=== PATIENT | female | born 1965 | race Caucasian/White ===

== ENCOUNTER 2023-09-17 08:53 | Inpatient (IN) | payer OTHER, SELFPAY ==
[2023-09-16 17:14] VITALS: BP 125/86
[2023-09-16 17:29] VITALS: BP 122/77; BMI 31.7
[2023-09-16 17:49] LABS: % Basophils 0.3 % (0-2); % Eosinophils 0.1 % (0-6); % Immature Granulocytes 0.2 % (0-0.5); % Lymphocytes 12.9 % (20.5-51.1); % Monocytes 6.1 % (1.7-9.3); % Neutrophils 80.4 % (42.2-75.2); Absolute Lymphocytes 1.5 10^3/uL (1.2-3.4); Absolute Monocytes 0.7 10^3/uL (0.1-0.6); Absolute Neutrophils 9.3 10^3/uL (1.4-6.5); Hematocrit 46.9 % (37.0-47.0); Hemoglobin 15.7 g/dL (12.0-16.0); Mean Corp Hgb Conc. 33.5 g/dL (33.0-37.0); Mean Corpuscular Hgb 29.3 pg (27.0-31.0); Mean Corpuscular Volume 87.5 fL (81.0-99.0); Mean Platelet Volume 9.9 fL (7.4-10.4); Nucleated Red Blood Cells % 0 %; Platelet Count 207 10^3/uL (130-400); Red Blood Cell Count 5.36 10^6/uL (4.20-5.40); Red Cell Dist. Width 13.1 % (11.5-14.5); White Blood Cell Count 11.6 10^3/uL (4.8-10.8)
[2023-09-16 17:54] LABS: APTT 31.3 Sec (23.4-35.0); INR 0.98; PT 12.8 Sec (11.4-14.6)
[2023-09-16 17:59] LABS: ALT (SGPT) 25 U/L (0-35); AST (SGOT) 42 U/L (14-36); Albumin 4.1 g/dl (3.5-5.0); Alkaline Phosphatase 87 U/L (38-126); Blood Urea Nitrogen 10 mg/dl (7-17); Carbon Dioxide 34 mmol/L (22-30); Chloride 97 mmol/L (98-107); Estimated Creatinine Clearance 108 ml/min; Glucose 130 mg/dl (70-99); Potassium 4.5 mmol/L (3.5-5.1); Sodium 136 mmol/L (135-145); Total Bilirubin 0.7 mg/dl (0.2-1.3); Total Protein 6.9 g/dl (6.3-8.2); eGFR > 60.00
[2023-09-16] MEDS: DECADRON 10 MG IV (18:03)
[2023-09-16] MEDS: ATROVENT NEBULES 0.5 MG INH ×2 (18:04→18:05)
[2023-09-16] MEDS: ROCEPHIN 1000 MG IV (18:04)
[2023-09-16] MEDS: ZOFRAN 4 MG IV (18:04)
[2023-09-16] MEDS: VIBRAMYCIN 100 MG PO (18:05)
[2023-09-16] MEDS: VENTOLIN NEBULES 7.5 MG INH (18:05)
[2023-09-16 18:08] LABS: NT-proBNP 1260 pg/ml
--- NOTE | 2023-09-16 18:12 | ED.GENMED ---
History of Present Illness
General
Chief Complaint: Breathing Problem
Source: patient and family
Time Seen by Provider: 09/16/23 17:40
History of Present Illness
History of Present Illness:
57-year-old female longtime smoker with history of COPD presents short of breath over the last close to a week. Patient states that today she just was so short of breath and could not get her pulse ox in the 80s. Patient states her was
sick with a cold last week. She then developed a fever but that broke after she took Zithromax that she had at home. Patient states however her breathing difficulty has persisted. She states her cough is mostly dry. She has had no longer
any fevers. Denies chest pain. No vomiting. The patient states that she has been trying albuterol at home without relief.
Past History
Past History
ED Past Medical History: Cancer (Breast), COPD and Other (Polycystic ovary disease)
ED Past Surgical History: Other
Social History
Tobacco: Smoker
Living: with family
Employment: Employed
Phy Exam
Physical Exam
Physical Exam:
CONSTITUTIONAL Patient alert and oriented to person, place and time. Well-appearing. Vital signs reviewed.
HEAD atraumatic, normocephalic.
EYES eyelids normal to inspection, Extraocular muscles intact, Conjunctiva normal, Sclera normal.
NECK normal range of motion, Trachea midline, no jugular venous distention.
RESPIRATORY CHEST mild respiratory distress noted, Chest expansion equal, occasional scattered rhonchi but grossly poor air movement bilaterally.
CARDIOVASCULAR regular rate and rhythm, Heart sounds normal.
ABDOMEN abdomen nontender, Bowel sounds normal. No distention.
BACK normal inspection, no obvious deformities
UPPER EXTREMITY range of motion normal, Motor strength normal, no cyanosis, no edema.
LOWER EXTREMITY range of motion normal, Motor strength normal, no cyanosis, no edema.
NEURO Speech normal, No focal motor deficits, Sangeeta coma scale 15, Memory normal, Cranial Nerves intact to screening exam.
SKIN skin warm, dry, and normal in color.
PSYCHIATRIC patient oriented to person place and time, Normal affect.
Scores
Heart Failure Risk
Heart Failure Risk Score: Not Applicable
Course
Orders/Labs/Results
Orders:
Orders
09/16/23 17:25
Portable Chest Xray [CR Chest Portable - 1 View] Urgent
Comment:
Reason For Exam: sob
Reason Study Needs to be Portable: Patient Unstable
09/16/23 17:35
BNP [NT-proBNP] Urgent
Complete Blood Count/With Diff Urgent
Comprehensive Metabolic Panel Urgent
Protime/PTT Urgent
09/16/23 17:50
Albuterol Sulfate [Ventolin Nebules] 7.5 mg INH R NOW STA
Dexamethasone Sod Phosphate [Decadron] 10 mg IV NOW STA
Ipratropium Nebs [Atrovent Nebules] 0.5 mg INH R NOW STA
09/16/23 17:51
Ipratropium Nebs [Atrovent Nebules] 0.5 mg INH R NOW STA
09/16/23 17:52
CefTRIAXone [Rocephin] 1,000 mg IV NOW STA
Doxycycline [Vibramycin] 100 mg PO NOW STA
09/16/23 17:55
Ondansetron Injectable [Zofran] 4 mg IV NOW STA
Abnormal Lab Results
09/16/23
17:35
WBC 11.6 H 10^3/uL
(4.8-10.8)
Absolute Neuts (auto) 9.3 H 10^3/uL
(1.4-6.5)
Absolute Monos (auto) 0.7 H 10^3/uL
(0.1-0.6)
Neutrophils % 80.4 H %
(42.2-75.2)
Lymphocytes % 12.9 L %
(20.5-51.1)
Chloride 97 L mmol/L
(98-107)
Carbon Dioxide 34 H mmol/L
(22-30)
Creatinine 0.4 L mg/dL
(0.6-1.0)
Glucose 130 H mg/dl
(70-99)
AST 42 H U/L
(14-36)
09/16/23 17:35
09/16/23 17:35
Vital Signs
Initial and Last Documented VS:
Initial Vital Signs
Temp Pulse Resp BP Pulse Ox
99.8 F 110 24 125/86 83
09/16/23 17:14 09/16/23 17:14 09/16/23 17:14 09/16/23 17:14 09/16/23 17:14
Last Documented Vital Signs
Temp Pulse Resp BP Pulse Ox
99.8 F 109 19 122/77 94
09/16/23 17:14 09/16/23 17:30 09/16/23 17:30 09/16/23 17:29 09/16/23 17:41
MDM/Problems Addressed
MDM/Problems Addressed:
Acute COPD exacerbation, hypoxia, community-acquired pneumonia
*Radiology
Radiology exam reviewed: preliminary read by ED provider (Right lower lobe pneumonia)
*Pulse Oximetry
Patient hypoxic: yes
*[employer] Interpretation
Rate: tachycardiac
Interpretation: abnormal
Rhythm: sinus
*Critical Care Note
Total Time (30-74mins, 75-104mins- exclusive of procedures): 30 minutes
Data Reviewed
Source: patient and spouse
Prescriptions/Medications Considered But Not Given:
Considered vancomycin and Zosyn but I do suspect she is a community-acquired pneumonia
Patient Management
Discussion with other providers: Hospitalist
Escalation/DeEscalation of care consider admission/obs:
Marked hypoxia without oxygen. Poor air movement. Getting albuterol, steroids and antibiotics. Admit
ED Attending Note
-
Portions of this chart may have been created with voice recognition software.� Occasional wrong word or��sound alike� substitutions may have occurred due to the inherent limitations of voice recognition software.
Discharge Plan
Departure
Patient Disposition: Admit
Date of Disposition: 09/16/23
Time of Disposition: 18:12
Admit to: Telemetry
Presentation/result/management discussed w/ accepting MD/DO: Hospitalist
Discharge Problem:
Acute exacerbation of chronic obstructive pulmonary disease, Pneumonia, Hypoxia
Prescriptions:
No Action
Advil
1 tab PO PRN
Hydrocodone-Apap 10-325 Mg Tab
1 tab PO PRN
Motrin
1 tab PO PRN
clindamycin HCl [Cleocin HCl] 300 MG capsule
300 mg PO QID Qty: 28 0RF
hydrocodone-acetaminophen 1 TABLET tablet
1 tab PO Q4HPRN PRN (Reason: pain) Qty: 10 0RF
Interventions
Interventions:
*Risk Screen - Suicide Last Done: 09/16/23 17:14
*General Assessment Last Done: 09/16/23 17:14
*Neglect/Abuse Screening Last Done: 09/16/23 17:14
ED- Fall Risk Assessment Last Done: 09/16/23 17:41
ED- Cardiac Assessment Last Done: 09/16/23 17:41
ED- Pulmonary Assessment Last Done: 09/16/23 17:41
Discharge Date and Time
Print Language: YORUBA
[2023-09-16 18:15] VITALS: BP 121/71
[2023-09-16 19:00] VITALS: BP 119/67
--- NOTE | 2023-09-16 19:11 | HPS.HSE ---
Family Physician
-
Family Physician: José Haro
Chief Complaint
-
shortness of breath
History of Present Illness
57-year-old female with past medical history of COPD, endometriosis status post 2 surgeries, polycystic ovarian syndrome, adherence of fallopian tube to bowel on chronic narcotic, presenting with shortness of breath for the past month but worsening
over the past week. Today she was so short of breath and and her pulse ox was 80s. Her was sick with a cold last week. She developed a fever but this improved after she took Zithromax that she had at home which she has been taking
for the past 3 days. Cough is productive. She denies chest pain. She did have nausea and some dry heaving. Yesterday she had some diarrhea. She has had decreased p.o. intake. She has been having allergy symptoms this season with runny nose and
congestion.
She is a former smoker. She denies alcohol use.
Medical History
Past Medical History
Past Medical History: Reports Other (COPD, endometriosis status post 2 surgeries, polycystic ovarian syndrome, adherence of fallopian tube to bowel on chronic narcotic)
Past Surgical History: Reports None
Social History
Tobacco: Former Smoker
Alcohol: None
Drug: None
Family History
Family History: Not pertinent
Allergies / Home Medications
Allergies reflects when Allergies were last updated in [employer].
Home Medications with original date entered in [employer]
Allergy/Medication List:
Allergies
Allergy/AdvReac Type Severity Reaction Status Date / Time
amoxicillin Allergy Unknown Verified 09/16/23 17:19
Home Medications
Advil 1 tab PO PRN 02/25/08
Hydrocodone-Apap 10-325 Mg Tab 1 tab PO PRN 02/25/08
Motrin 1 tab PO PRN 02/25/08
clindamycin HCl 300 mg capsule (Cleocin HCl) 300 mg PO QID #28 caps 09/09/14
hydrocodone 5 mg-acetaminophen 325 mg tablet 1 tab PO Q4HPRN PRN pain #10 tabs 09/09/14
Review of Systems
-
History Source: Patient
A 12 point ROS was completed and negative except as noted: Yes
Constitutional: Reports No Symptoms
EENT: Reports No Symptoms
Respiratory: Reports See HPI
Cardiac: Reports No Symptoms
Abdomen/GI: Reports No Symptoms
: Reports No Symptoms
Musculoskeletal: Reports No Symptoms
Skin: Reports No Symptoms
Neurological: Reports No Symptoms
Endocrine: Reports No Symptoms
Hematologic/Lymphatic: Reports No Symptoms
Psych: Reports No Symptoms
Physical Exam
Vital Signs
Vital Signs
Temp Pulse Resp BP Pulse Ox
99.8 F 103 18 121/71 97
09/16/23 17:14 09/16/23 18:45 09/16/23 18:45 09/16/23 18:15 09/16/23 18:45
Physical Exam
General: Well Developed, Well Nourished and No Apparent Distress
HEENT: NormoCephalic, Moist mucous membranes and Atraumatic
Respiratory: Clear
Cardiac: S1/S2 and Regular Rhythm; No Murmur or Rub
GI: Soft, Non Tender, Non Distended and Normal Bowel Sounds; No Organomegaly
Rectal: Deferred by Provider
Musculoskeletal: No Clubbing, No Cyanosis and No Edema
Skin: No Rash
Neuro: Nonfocal/grossly intact
Laboratory Results
-
09/16/23 17:35
09/16/23 17:35
Laboratory Results
PT 12.8 Sec (11.4-14.6) 09/16/23 17:35
INR 0.98 09/16/23 17:35
APTT 31.3 Sec (23.4-35.0) 09/16/23 17:35
Total Bilirubin 0.7 mg/dl (0.2-1.3) 09/16/23 17:35
AST 42 U/L (14-36) H 09/16/23 17:35
ALT 25 U/L (0-35) 09/16/23 17:35
Alkaline Phosphatase 87 U/L (38-126) 09/16/23 17:35
Data Reviewed
-
Lab Data: Labs Reviewed by me
Old Records: Reviewed
Impression/Plan
-
IMPRESSION:
PLAN:
# Sepsis (leukocytosis, tachycardia, possible prior fever) secondary to right lower lobe pneumonia
-Gentle IV fluids
-Check COVID
-Check sputum culture
-Ceftriaxone/azithromycin
-DuoNebs every 6 hours
COPD
-No wheezing on examination
-Patient received dexamethasone in ER, hold off further steroids
-Continue DuoNebs
Endometriosis status post tubo-ovarian surgery
Polycystic ovarian syndrome
Adherence of fallopian tube to bowel
-Continue Vicodin
Full code
DVT prophylaxis- heparin
Regular diet
[2023-09-16 19:35] LABS: COVID-19 Antigen Negative (Negative)
[2023-09-16 20:00] VITALS: BP 139/84; BMI 28.7
[2023-09-16] MEDS: VITAMIN D3 (cholecalciferol) 125 MCG PO (21:14)
[2023-09-16] MEDS: NSS 1000 IV (21:14)
[2023-09-16] MEDS: HEPARIN 5000 UNITS SC (21:14)
[2023-09-16] MEDS: ZINC SULFATE 220 MG PO (21:16)
[2023-09-16] MEDS: ARIMIDEX PO (21:16)
[2023-09-16] MEDS: REFRESH CELLUVISC GEL 1 DROPS BOTH EYES (21:16)
[2023-09-16] MEDS: ZITHROMAX INFUSION 250 IV (21:28)
[2023-09-16] MEDS: TYLENOL 650 MG PO (21:30)
--- NOTE | 2023-09-16 22:00 | PTCARENOTE ---
pt is aaox3, very anxious. pt reports feeling lightheaded and dizzy. pt is on 4LO2 w/ SpO2 =90-94% pt lungs are diminished, rhonchi, w/ wheezes.
pt requesting to shower. explained she has oxygen, feeling dizzy, and getting IFV and ABX currently.
has all of her own meds and meds w/ her. Instructed to take them all home.
pt is oriented to room w/ call chang in reach.
[2023-09-16] MEDS: ADVAIR HFA 230/21 MCG INHALER INH (22:06)
[2023-09-16 23:14] VITALS: BP 112/68
[2023-09-17 07:00] VITALS: BP 114/79
[2023-09-17] MEDS: ADVAIR HFA 230/21 MCG INHALER 2 PUFF INH ×2 (07:16→19:56)
[2023-09-17 07:31] LABS: % Basophils 0.1 % (0-2); % Immature Granulocytes 0.3 % (0-0.5); % Lymphocytes 12.4 % (20.5-51.1); % Monocytes 3.8 % (1.7-9.3); % Neutrophils 83.4 % (42.2-75.2); Absolute Lymphocytes 0.9 10^3/uL (1.2-3.4); Absolute Monocytes 0.3 10^3/uL (0.1-0.6); Absolute Neutrophils 5.9 10^3/uL (1.4-6.5); Hematocrit 45.8 % (37.0-47.0); Mean Corp Hgb Conc. 32.8 g/dL (33.0-37.0); Mean Corpuscular Hgb 30.1 pg (27.0-31.0); Mean Platelet Volume 9.7 fL (7.4-10.4); Nucleated Red Blood Cells % 0 %; Platelet Count 190 10^3/uL (130-400); Red Blood Cell Count 4.98 10^6/uL (4.20-5.40); Red Cell Dist. Width 13.2 % (11.5-14.5)
[2023-09-17] MEDS: ZYRTEC 10 MG PO (07:35)
[2023-09-17] MEDS: NORCO 7.5/325 1 TABLET PO (07:35)
[2023-09-17] MEDS: HEPARIN 5000 UNITS SC ×2 (07:36→21:50)
[2023-09-17 07:53] LABS: ALT (SGPT) 22 U/L (0-35); AST (SGOT) 24 U/L (14-36); Albumin 3.8 g/dl (3.5-5.0); Alkaline Phosphatase 77 U/L (38-126); Blood Urea Nitrogen 17 mg/dl (7-17); Calcium 9.1 mg/dl (8.4-10.2); Carbon Dioxide 32 mmol/L (22-30); Chloride 99 mmol/L (98-107); Estimated Creatinine Clearance 115 ml/min; Glucose 122 mg/dl (70-99); Potassium 5.2 mmol/L (3.5-5.1); Sodium 136 mmol/L (135-145); Total Bilirubin 0.4 mg/dl (0.2-1.3); Total Protein 6.6 g/dl (6.3-8.2); eGFR > 60.00
--- NOTE | 2023-09-17 11:36 | CM ---
Patient seen bedside, initial assessment completed. Patient resides in a two story home, two steps to enter, 13 steps to second floor, with . Patient currently on O2, denies home O2. Patient denies DME, VN, or SNF history. Patient PCP
Tahir, pharmacy [facility], patient reports she does not have prescription coverage through her insurance. Patient denies food, housing/utility, transportation insecurities. CM reviewed OBS status, patient refused to sign, placed in chart. CM
will continue to follow for all discharge planning needs.
Plan; home no needs likely, watch for O2 needs.
[2023-09-17 15:00] VITALS: BP 167/77
--- NOTE | 2023-09-17 17:21 | W.PN.HOSP.TC ---
Today's Communication/Plan
-
IV antibiotics
Inhaled bronchodilators and corticosteroids.
Attempt to wean off oxygen.
Assessment / Plan
Assessment / Plan
Impression:
Right lower lobe pneumonia, community-acquired.
Acute hypoxic respiratory insufficiency secondary to above
Sepsis ruled out.
COPD exacerbation, mild
Other conditions:
Endometriosis status post tubo-ovarian surgery
Polycystic ovary syndrome
Chronic pain requiring opiate administration
Tobacco use disorder, ongoing.
Plan:
Right lower lobe pneumonia.
Acute hypoxic respiratory insufficiency secondary to above.
Continue oxygen supplementation currently on 3 to 4 L nasal cannula with no evidence of respiratory distress.
Antibiotics ceftriaxone/Zithromax covering community-acquired pathogens
COPD
Tobacco use disorder
Exam with coarse rhonchi and bronchial sounds at the right base, diffuse wheezing
Continue nebulized bronchodilators.
Continue inhaled steroids
Monitor closely.
If remains with hypoxia and persistent bronchospasm on exam, consider short course of systemic steroids.
Tobacco use disorder.
Offered nicotine patch and declined.
Endometriosis status post tubo-ovarian surgery
Polycystic ovarian syndrome
Adherence of fallopian tube to bowel
-Continue Vicodin
Full code
DVT prophylaxis- heparin
Regular diet
Anticipated Discharge: > 48 hours
Subjective/Interval History
-
Date of Service: September 17, 2023
Objective Data
-
Labs:
Laboratory Results
09/17/23
06:59
WBC 7.0
Hgb 15.0
Hct 45.8
Plt Count 190
Sodium 136
Potassium 5.2 H
Chloride 99
Carbon Dioxide 32 H
BUN 17
Creatinine 0.5 L
Glucose 122 H
Calcium 9.1
Total Bilirubin 0.4
AST 24
ALT 22
Alkaline Phosphatase 77
Vital Signs:
Vital Signs
Temp Pulse Resp BP Pulse Ox
98.0 F 69 18 167/77 96
09/17/23 15:00 09/17/23 15:00 09/17/23 15:00 09/17/23 15:00 09/17/23 15:00
I&O
09/16/23 09/17/23 09/18/23
06:59 06:59 06:59
Intake Total 1690 / 1690
Balance 1690 / 1690
Physical Exam
-
General: Well Developed and No Apparent Distress
HEENT: Normocephalic, Atraumatic and Moist Mucous Membranes
Respiratory: Wheezes (Diffuse biphasic bilateral.) and Other (Right base bronchial sounds)
Cardiac: Regular Rhythm and S1/S2; Negative Murmur, Rub or Gallop
GI: Soft, Nontender, Nondistended and Normal Bowel Sounds; Negative Organomegaly
Rectal: Deferred by Provider
Musculoskeletal: No Clubbing, No Cyanosis and No Edema
Skin: Negative Rash
Neuro: Awake, Alert, Oriented and Nonfocal/Grossly Intact
Psych: Anxious
[2023-09-17] MEDS: ROCEPHIN 1000 MG IV (18:14)
[2023-09-17] MEDS: STERILE WATER FOR INJECTION 10 ML IV (18:14)
[2023-09-17] MEDS: TYLENOL 650 MG PO (20:38)
[2023-09-17] MEDS: NSS 1000 IV (21:48)
[2023-09-17] MEDS: ZITHROMAX INFUSION 250 IV (21:48)
[2023-09-17] MEDS: ARIMIDEX 1 MG PO (21:49)
[2023-09-17] MEDS: ZINC SULFATE 220 MG PO (21:49)
[2023-09-17] MEDS: VITAMIN D3 (cholecalciferol) 125 MCG PO (21:49)
[2023-09-17] MEDS: MUCINEX 600 MG PO (21:50)
[2023-09-17] MEDS: REFRESH CELLUVISC GEL BOTH EYES (21:51)
[2023-09-17 23:00] VITALS: BP 116/60
[2023-09-18 01:49] VITALS: BP 116/60
[2023-09-18 07:00] VITALS: BP 117/83
[2023-09-18] MEDS: ADVAIR HFA 230/21 MCG INHALER 2 PUFF INH ×2 (07:51→20:33)
[2023-09-18] MEDS: DUONEB 3 ML INH ×2 (07:54→17:55)
[2023-09-18] MEDS: HEPARIN 5000 UNITS SC ×2 (09:14→20:58)
[2023-09-18] MEDS: ZYRTEC 10 MG PO (09:14)
[2023-09-18] MEDS: NORCO 7.5/325 1 TABLET PO (09:14)
[2023-09-18] MEDS: MUCINEX 600 MG PO ×2 (09:14→20:58)
[2023-09-18 11:04] LABS: % Basophils 0.2 % (0-2); % Eosinophils 0.2 % (0-6); % Immature Granulocytes 0.5 % (0-0.5); % Lymphocytes 27.2 % (20.5-51.1); % Neutrophils 63.9 % (42.2-75.2); Absolute Lymphocytes 1.8 10^3/uL (1.2-3.4); Absolute Monocytes 0.5 10^3/uL (0.1-0.6); Absolute Neutrophils 4.2 10^3/uL (1.4-6.5); Hematocrit 39.5 % (37.0-47.0); Hemoglobin 12.8 g/dL (12.0-16.0); Mean Corp Hgb Conc. 32.4 g/dL (33.0-37.0); Mean Corpuscular Hgb 30.1 pg (27.0-31.0); Mean Corpuscular Volume 92.9 fL (81.0-99.0); Mean Platelet Volume 9.6 fL (7.4-10.4); Nucleated Red Blood Cells % 0 %; Platelet Count 209 10^3/uL (130-400); Red Blood Cell Count 4.25 10^6/uL (4.20-5.40); Red Cell Dist. Width 13.4 % (11.5-14.5); White Blood Cell Count 6.5 10^3/uL (4.8-10.8)
[2023-09-18 11:36] LABS: Blood Urea Nitrogen 17 mg/dl (7-17); Calcium 8.7 mg/dl (8.4-10.2); Carbon Dioxide 33 mmol/L (22-30); Chloride 101 mmol/L (98-107); Estimated Creatinine Clearance 115 ml/min; Glucose 191 mg/dl (70-99); Sodium 137 mmol/L (135-145); eGFR > 60.00
[2023-09-18 16:08] VITALS: BP 114/76
--- NOTE | 2023-09-18 16:31 | W.PN.HOSP.TC ---
Today's Communication/Plan
-
Sputum culture.
IV antibiotics per
Inhaled corticosteroids and bronchodilators.
Incentive spirometry.
Wean off IV fluids
Wean off oxygen as tolerates.
Assessment / Plan
Assessment / Plan
Impression:
Right lower lobe pneumonia, community-acquired.
Acute hypoxic respiratory insufficiency secondary to above
Sepsis ruled out.
COPD exacerbation, mild
Other conditions:
Endometriosis status post tubo-ovarian surgery
Polycystic ovary syndrome
Chronic pain requiring opiate administration
Tobacco use disorder, ongoing.
Plan:
Right lower lobe pneumonia.
Acute hypoxic respiratory insufficiency secondary to above.
Continue oxygen supplementation currently on 3 to 4 L nasal cannula with no evidence of respiratory distress.
Antibiotics ceftriaxone/Zithromax covering community-acquired pathogens
COPD
Tobacco use disorder
Exam with coarse rhonchi and bronchial sounds at the right base, diffuse wheezing
Continue nebulized bronchodilators.
Continue inhaled steroids
Monitor closely.
If remains with hypoxia and persistent bronchospasm on exam, consider short course of systemic steroids.
Tobacco use disorder.
Offered nicotine patch and declined.
Endometriosis status post tubo-ovarian surgery
Polycystic ovarian syndrome
Adherence of fallopian tube to bowel
-Continue Vicodin
Full code
DVT prophylaxis- heparin
Regular diet
Anticipated Discharge: 24 - 48 hours
Subjective/Interval History
-
Date of Service: September 18, 2023
Objective Data
-
Labs:
Laboratory Results
09/18/23
10:54
WBC 6.5
Hgb 12.8
Hct 39.5
Plt Count 209
Sodium 137
Potassium 4.0
Chloride 101
Carbon Dioxide 33 H
BUN 17
Creatinine 0.5 L
Glucose 191 H
Calcium 8.7
Vital Signs:
Vital Signs
Temp Pulse Resp BP Pulse Ox
99.0 F 89 20 114/76 94
09/18/23 16:08 09/18/23 16:08 09/18/23 16:08 09/18/23 16:08 09/18/23 16:08
I&O
09/17/23 09/18/23 09/19/23
06:59 06:59 06:59
Intake Total 0 / 1690 1809
Balance 1690 / 1690 1809
Physical Exam
-
General: Well Developed and No Apparent Distress
HEENT: Normocephalic, Atraumatic and Moist Mucous Membranes
Respiratory: Wheezes (Diffuse biphasic bilateral.) and Other (Right base bronchial sounds)
Cardiac: Regular Rhythm and S1/S2; Negative Murmur, Rub or Gallop
GI: Soft, Nontender, Nondistended and Normal Bowel Sounds; Negative Organomegaly
Rectal: Deferred by Provider
Musculoskeletal: No Clubbing, No Cyanosis and No Edema
Skin: Negative Rash
Neuro: Awake, Alert, Oriented and Nonfocal/Grossly Intact
Psych: Anxious
[2023-09-18] MEDS: STERILE WATER FOR INJECTION 10 ML IV (17:38)
[2023-09-18] MEDS: ROCEPHIN 1000 MG IV (17:38)
[2023-09-18] MEDS: NSS IV (18:22)
[2023-09-18] MEDS: ARIMIDEX 1 MG PO (20:58)
[2023-09-18] MEDS: ZITHROMAX INFUSION 250 IV (20:58)
[2023-09-18] MEDS: VITAMIN D3 (cholecalciferol) 125 MCG PO (20:58)
[2023-09-18] MEDS: REFRESH CELLUVISC GEL BOTH EYES (20:58)
[2023-09-18] MEDS: ZINC SULFATE 220 MG PO (20:58)
[2023-09-18] MEDS: TYLENOL 650 MG PO (21:03)
[2023-09-18 23:05] VITALS: BP 123/67
[2023-09-19 07:00] VITALS: BP 127/80
[2023-09-19 07:42] LABS: % Basophils 0.3 % (0-2); % Eosinophils 1.3 % (0-6); % Immature Granulocytes 0.3 % (0-0.5); % Lymphocytes 33.7 % (20.5-51.1); % Monocytes 11.2 % (1.7-9.3); % Neutrophils 53.2 % (42.2-75.2); Absolute Eosinophils 0.1 10^3/uL (0-0.7); Absolute Monocytes 0.7 10^3/uL (0.1-0.6); Absolute Neutrophils 3.2 10^3/uL (1.4-6.5); Hematocrit 41.9 % (37.0-47.0); Hemoglobin 13.6 g/dL (12.0-16.0); Mean Corp Hgb Conc. 32.5 g/dL (33.0-37.0); Mean Corpuscular Volume 92.5 fL (81.0-99.0); Mean Platelet Volume 9.4 fL (7.4-10.4); Nucleated Red Blood Cells % 0 %; Platelet Count 226 10^3/uL (130-400); Red Blood Cell Count 4.53 10^6/uL (4.20-5.40); Red Cell Dist. Width 13.4 % (11.5-14.5)
[2023-09-19] MEDS: ZYRTEC 10 MG PO (08:02)
[2023-09-19] MEDS: HEPARIN 5000 UNITS SC ×2 (08:02→21:06)
[2023-09-19] MEDS: NORCO 7.5/325 1 TABLET PO (08:04)
[2023-09-19] MEDS: MUCINEX 600 MG PO ×2 (08:04→21:06)
[2023-09-19 08:19] LABS: Blood Urea Nitrogen 18 mg/dl (7-17); Calcium 9.3 mg/dl (8.4-10.2); Carbon Dioxide 34 mmol/L (22-30); Chloride 100 mmol/L (98-107); Estimated Creatinine Clearance 115 ml/min; Glucose 92 mg/dl (70-99); Potassium 4.6 mmol/L (3.5-5.1); Sodium 139 mmol/L (135-145); eGFR > 60.00
[2023-09-19] MEDS: ADVAIR HFA 230/21 MCG INHALER 2 PUFF INH ×2 (08:23→19:49)
--- NOTE | 2023-09-19 11:41 | CM ---
Patient seen bedside, remains on O2. Reports no needs to CM at this time. CM will continue to follow for all discharge planning needs.
Plan; home no needs, watch for home O2 needs.
[2023-09-19] MEDS: DUONEB 3 ML INH ×2 (13:30→19:49)
[2023-09-19 15:00] VITALS: BP 127/73
--- NOTE | 2023-09-19 15:53 | CON.PUL ---
Consultation
Consultation Request
Date/Time Consultation Requested: 09/19/2023
Date/Time Consultation Performed: 09/19/2023
Requesting Provider: Dr. Shaikh
Performing Provider: Dr. Roberto Quijano
Reason for Consultation: Pneumonia/respiratory insufficiency/COPD exacerbation
Medical History
-
History of Present Illness:
57-year-old woman with past medical history significant for COPD, endometriosis status post surgeries x 2, polycystic ovarian syndrome, chronic narcotic for chronic pain, presented to the hospital on 09/16/2023 for shortness of breath for the past
week. She was found to be hypoxemic with a pulse ox down to the low 80s.
She had a sick contact, her was sick with an upper respiratory infection the week prior.
Patient does report some fever. She took some Zithromax at home. Productive cough developed. Prior to admission with some GI symptoms as well.
Patient has prior history of smoking.
Past Medical History
Past Medical History: Other (See assessment and plan section)
Social History
Tobacco: Smoker (40pk years)
Alcohol: None
Drug: None
Personal: ( had lung transplant)
Family History
Family History: Reviewed & Not Pertinent
Allergies / Home Medications
Allergies
Allergy/AdvReac Type Severity Reaction Status Date / Time
amoxicillin Allergy Unknown Verified 09/16/23 17:19
Home Medications
�Medication �Instructions �Recorded �Confirmed �Last Taken �Type
Cinnamon 1 tab PO DAILY Supplement 09/16/23 09/16/23 09/16/23 History
acetylcysteine 600 mg capsule (NAC) 600 mg PO TID Supplement 09/16/23 09/16/23 09/16/23 History
albuterol sulfate 90 mcg/actuation 2 puff inhalation R Q4HPRN PRN sob 09/16/23 09/16/23 09/16/23 History
aerosol inhaler
anastrozole 1 mg tablet 1 mg PO HS Cancer 09/16/23 09/16/23 09/16/23 History
carboxymethylcellulose sodium 0.5 10 drp BOTH EYES HS Eye Condition 09/16/23 09/16/23 09/15/23 History
% eye drops in a dropperette
(Refresh Plus)
cetirizine 10 mg tablet (Zyrtec) 10 mg PO DAILY Allergies 09/16/23 09/16/23 09/16/23 History
cholecalciferol (vitamin D3) 125 125 mcg PO HS Supplement 09/16/23 09/16/23 09/15/23 History
mcg (5,000 unit) tablet (Vitamin
D3)
fluticasone 500 mcg-salmeterol 50 1 inh inhalation R BID 09/16/23 09/16/23 09/16/23 History
mcg/dose blistr powdr for Lung/Breathing Issues
inhalation (Wixela Inhub)
hydrocodone 7.5 mg-ibuprofen 200 1 tab PO DAILY Pain 09/16/23 09/16/23 09/15/23 History
mg tablet
uddnwmmrjcvsv-GO-qxkujiiespdfp-guaifen 2 tab PO Q6HPRN PRN fever 09/16/23 09/16/23 09/16/23 History
5 mg-10 mg-325 mg-200 mg tablet
(Tylenol Cold and Flu Severe)
quercetin 500 mg capsule 1,500 mg PO BID Supplement 09/16/23 09/16/23 09/16/23 History
zinc sulfate 50 mg zinc (220 mg) 50 mg PO HS Supplement 09/16/23 09/16/23 09/15/23 History
tablet
Review of Systems
-
History Source: Patient
All other systems: Negative unless noted
Vitals / Labs / Diagnostic Testing
Vital Signs
Temp Pulse Resp BP Pulse Ox
98.0 F 79 18 127/80 96
09/19/23 07:00 09/19/23 13:32 09/19/23 13:32 09/19/23 07:00 09/19/23 13:32
Lab Data
09/19/23 07:14
09/19/23 07:14
Microbiology
09/19/23 09:58 Sputum Gram Stain - Preliminary
Diagnostic Testing:
Physical Exam
-
HEENT: Normocephalic
Cardiovascular: S1/S2 and Regular Rhythm
Respiratory: Wheeze (Expiratory bilaterally. Prolong exp. phase)
GI: Soft and Non Distended
Neurology: Awake, Alert, Oriented and No Motor Deficits
Skin: Warm
General: Respiratory Distress (none at rest.) and Comfortable
Assessment
-
57-year-old woman with with history of former smoking,? COPD not on inhalers, came to the hospital complaining of shortness of breath. Found to have pneumonia, bronchospastic and hypoxemic. We were consulted on 09/19/2023 for evaluation, management
assistance.
Acute bronchospasm/suspected COPD exacerbation, due to community-acquired pneumonia
Acute respiratory insufficiency-3 L nasal cannula
CT chest: 09/19/2023, showed multifocal pneumonia of the right lung. No evidence for pulmonary embolism. Upper lobe predominant emphysema.
COVID-negative
-
Conditions present prior admission:
Polycystic ovarian syndrome
Endometriosis
Breast CA on right -s/p lumpectomy and XRT 01/2023
? COPD: Uncertain diagnosis. Emphysema on CAT scan noted 09/19/2023. No PFT available. On Wixela/Albuterol PRN. Not following with pulmonary.
Adhesion to the fallopian tube/bowel on chronic Vicodin
Tobacco abuse 40py history, last 1 week ago.
Assessment and plan:
Clinical picture consistent with community-acquired pneumonia/possible acute exacerbation of COPD given upper lobe predominant emphysema on CAT scan.
Does report chronic component of SOB for years.
-
Patient hypoxemia requiring 3-4 L supplemental oxygen. Wean as able.
93% at rest during my exam on RA.
Patient with decreased breah sounds bilaterally, expiratory wheezing -she subjectively feels better.
Nebulizers: Start DuoNebs [id number]/Pulmicort. Has been using it only on as-needed basis.
Reevaluate tomorrow and consider IV/PO corticosteroids if lung exam remains significantly abnormal.
Okay to continue inhalers if able to maintain proper technique.
Antibiotics, ceftriaxone/Zithromax: Seems to be responding to antibiotics. Afebrile.Leukocytosis resolved.
Acapella device
Mucolytic's
So far sputum culture pending
-
CT images reviewed and showed groundglass opacity on the right upper lobe around 1.7 cm as well as right lower lobe infiltrate. Unclear whether all this is infectious.
Cannot rule out right upper lobe lung nodule.
Suggest short-term follow-up with a CT of the chest in about 6 to 8 weeks to document improvement/resolution of infiltrates.
-
Smoking cessation encouraged.
Suggest outpatient pulmonary follow-up to complete pulmonary function testing.
-
Denies symptoms suggestive of NUNU
-
DVT prophylaxis
-
Will continue to follow
--- NOTE | 2023-09-19 17:38 | W.PN.HOSP.TC ---
Today's Communication/Plan
-
Attempt to wean off oxygen
Antibiotics.
Inhaled steroids and bronchodilators
Consider systemic steroids if no improvement of hypoxia over the next 24 hours
Assessment / Plan
Assessment / Plan
Impression:
Right lower lobe pneumonia, community-acquired.
Acute hypoxic respiratory insufficiency secondary to above
Sepsis ruled out.
COPD exacerbation, mild
Other conditions:
Endometriosis status post tubo-ovarian surgery
Polycystic ovary syndrome
Chronic pain requiring opiate administration
Tobacco use disorder, ongoing.
Plan:
Right lower lobe pneumonia.
Acute hypoxic respiratory insufficiency secondary to above.
Continue oxygen supplementation currently on 3 to 4 L nasal cannula with no evidence of respiratory distress.
Antibiotics ceftriaxone/Zithromax covering community-acquired pathogens
COPD
Tobacco use disorder
Exam with coarse rhonchi and bronchial sounds at the right base, diffuse wheezing
Persistently hypoxic requiring oxygen supplementation at 3 L of nasal cannula
CT scan of the chest on 09/18 negative for pulmonary embolism and multifocal right-sided pneumonia. No pleural effusion.
Continue nebulized bronchodilators changed to standing dose
Continue inhaled steroids
If no improvement over the next 24 hours would consider addition of systemic steroids
Pulmonary input appreciated.
Tobacco use disorder.
Offered nicotine patch and declined.
Endometriosis status post tubo-ovarian surgery
Polycystic ovarian syndrome
Adherence of fallopian tube to bowel
-Continue Vicodin
Full code
DVT prophylaxis- heparin
Regular diet
Anticipated Discharge: 24 - 48 hours
Subjective/Interval History
-
Date of Service: September 19, 2023
Objective Data
-
Labs:
Laboratory Results
09/19/23
07:14
WBC 6.0
Hgb 13.6
Hct 41.9
Plt Count 226
Sodium 139
Potassium 4.6
Chloride 100
Carbon Dioxide 34 H
BUN 18 H
Creatinine 0.6
Glucose 92
Calcium 9.3
Vital Signs:
Vital Signs
Temp Pulse Resp BP Pulse Ox
98.3 F 75 20 127/73 96
09/19/23 15:00 09/19/23 15:00 09/19/23 15:00 09/19/23 15:00 09/19/23 16:40
I&O
09/18/23 09/19/23 09/20/23
06:59 06:59 06:59
Intake Total 1809 1260 / 1260
Balance 1809 1260 / 1260
Physical Exam
-
General: Well Developed and No Apparent Distress
HEENT: Normocephalic, Atraumatic and Moist Mucous Membranes
Respiratory: Wheezes (Diffuse biphasic bilateral.) and Other (Right base bronchial sounds)
Cardiac: Regular Rhythm and S1/S2; Negative Murmur, Rub or Gallop
GI: Soft, Nontender, Nondistended and Normal Bowel Sounds; Negative Organomegaly
Rectal: Deferred by Provider
Musculoskeletal: No Clubbing, No Cyanosis and No Edema
Skin: Negative Rash
Neuro: Awake, Alert, Oriented and Nonfocal/Grossly Intact
Psych: Anxious
[2023-09-19] MEDS: ROCEPHIN 1000 MG IV (18:24)
[2023-09-19] MEDS: STERILE WATER FOR INJECTION 10 ML IV (18:24)
[2023-09-19] MEDS: PULMICORT 0.5 MG INH (19:50)
[2023-09-19] MEDS: TYLENOL 650 MG PO (21:07)
[2023-09-19] MEDS: REFRESH CELLUVISC GEL 1 DROPS BOTH EYES (21:56)
[2023-09-19] MEDS: ARIMIDEX 1 MG PO (21:56)
[2023-09-19] MEDS: ZINC SULFATE 220 MG PO (21:57)
[2023-09-19] MEDS: ZITHROMAX INFUSION 250 IV (21:57)
[2023-09-19] MEDS: VITAMIN D3 (cholecalciferol) 125 MCG PO (21:57)
[2023-09-19 23:23] VITALS: BP 126/70
[2023-09-20 07:00] VITALS: BP 147/77
[2023-09-20] MEDS: PULMICORT 0.5 MG INH ×2 (07:02→20:38)
[2023-09-20] MEDS: DUONEB 3 ML INH ×3 (07:02→20:38)
[2023-09-20] MEDS: ADVAIR HFA 230/21 MCG INHALER 2 PUFF INH ×2 (07:02→20:38)
[2023-09-20] MEDS: HEPARIN 5000 UNITS SC ×2 (07:58→19:49)
[2023-09-20] MEDS: MUCINEX 600 MG PO (07:59)
[2023-09-20] MEDS: ZYRTEC 10 MG PO (07:59)
[2023-09-20] MEDS: NORCO 7.5/325 1 TABLET PO (07:59)
--- NOTE | 2023-09-20 09:53 | W.PN.HOSP.TC ---
Today's Communication/Plan
-
Continue IV antibiotics. Pulmonary re-eval
Assessment / Plan
Assessment / Plan
Physical exam:
General: Well Developed, Well Nourished and No Apparent Distress
HEENT: Normocephalic, Atraumatic and Moist Mucous Membranes
Respiratory: Decreased breath sounds bilateral; Prolonged expiratory phase, Negative Wheezes, Rales or Rhonchi
Cardiac: Regular Rhythm and S1/S2
GI: Soft, Nontender and Nondistended
Musculoskeletal: No Clubbing, No Cyanosis and No Edema
Neuro: Awake, Alert and Oriented
Psych: Calm
A/P:
Impression:
Right lower lobe pneumonia, community-acquired.
Acute hypoxic respiratory insufficiency secondary to above
Sepsis ruled out.
COPD exacerbation, mild
Other conditions:
Endometriosis status post tubo-ovarian surgery
Polycystic ovary syndrome
Chronic pain requiring opiate administration
Tobacco use disorder, ongoing.
Plan:
Right lower lobe pneumonia.
Acute hypoxic respiratory insufficiency secondary to above.
Continue oxygen supplementation currently on 3 to 4 L nasal cannula with no evidence of respiratory distress.
Antibiotics ceftriaxone/Zithromax covering community-acquired pathogens
COPD
Tobacco use disorder
Exam with coarse rhonchi and bronchial sounds at the right base, diffuse wheezing
Persistently hypoxic requiring oxygen supplementation at 3 L of nasal cannula
CT scan of the chest on 09/18 negative for pulmonary embolism and multifocal right-sided pneumonia. No pleural effusion.
Continue nebulized bronchodilators changed to standing dose
Continue inhaled steroids
If no improvement over the next 24 hours would consider addition of systemic steroids--> I discussed with her about steroids and she tells me that pulmonary started her on steroids/dexamethasone but I explained to her that he started her on inhaled
steroids not systemic steroids. I will follow-up with pulmonary today if systemic steroids indicated.
Pulmonary input appreciated.
Tobacco use disorder.
Offered nicotine patch and declined.
Endometriosis status post tubo-ovarian surgery
Polycystic ovarian syndrome
Adherence of fallopian tube to bowel
-Continue Vicodin
Full code
DVT prophylaxis- heparin
Regular diet
Anticipated Discharge: 24 - 48 hours
Subjective/Interval History
-
Date of Service: September 20, 2023
Patient feels overall slightly better but she tells me she dropped her oxygenation from time to time. Still coughing and some shortness of breath. Afebrile
Objective Data
-
Vital Signs:
Vital Signs
Temp Pulse Resp BP Pulse Ox
99.0 F 88 16 147/77 91
09/20/23 07:00 09/20/23 07:05 09/20/23 07:05 09/20/23 07:00 09/20/23 07:05
I&O
09/19/23 09/20/23 09/21/23
06:59 06:59 06:59
Intake Total 1260 / 1260 2580 / 2580
Balance 1260 / 1260 2580 / 2580
--- NOTE | 2023-09-20 11:09 | W.PN.PUL3 ---
Today's Communication / Plan
-
Continue IV abx
Wean O2 as tolerated, eventual home O2 eval needed
Add decadron, she did find this beneficial, can transition to PO taper when improving
Increase mucinex to high dose, continue mucus clearance
Encouraged OOB/PT/IS
OP pulmonary FU eventually post discharge
Assessment
-
57-year-old woman with with history of former smoking,? COPD not on inhalers, came to the hospital complaining of shortness of breath. Found to have pneumonia, bronchospastic and hypoxemic. We were consulted on 09/19/2023 for evaluation, management
assistance.
Acute bronchospasm/suspected COPD exacerbation
RLL/community-acquired pneumonia
Acute respiratory insufficiency-3 L nasal cannula
CT chest: 09/19/2023, showed multifocal pneumonia of the right lung. No evidence for pulmonary embolism. Upper lobe predominant emphysema.
COVID-negative
-
Conditions present prior admission:
Polycystic ovarian syndrome
Endometriosis
Breast CA on right -s/p lumpectomy and XRT 01/2023
? COPD: Uncertain diagnosis. Emphysema on CAT scan noted 09/19/2023. No PFT available. On Wixela/Albuterol PRN. Not following with pulmonary.
Adhesion to the fallopian tube/bowel on chronic Vicodin
Tobacco abuse 40py history, last 1 week ago.
Plan
O2 weaned down to 2L NC
Will eventually need home O2 assessment
Clinical picture consistent with community-acquired pneumonia/possible acute exacerbation of COPD given upper lobe predominant emphysema on CAT scan.
Does report chronic component of SOB for years.
Patient with decreased breath sounds bilaterally, no further wheezing
Continue DuoNebs [id number]/Pulmicort. Has been using it only on as-needed basis.
Okay to continue inhalers if able to maintain proper technique.
She felt better after 1 dose of decadron 09/15, asking about recurrent dose
I will add decadron IV q12
If this is helpful, can complete prednisone taper at discharge
Antibiotics, ceftriaxone/Zithromax: Seems to be responding to antibiotics.
Afebrile.Leukocytosis resolved.
Acapella device/Mucolytic's, will increase her mucinex to high dose
We reviewed airway clearance
So far sputum culture showing normal capri
Denies swallowing issues
CT images reviewed and showed groundglass opacity on the right upper lobe around 1.7 cm as well as right lower lobe infiltrate. Unclear whether all this is infectious.
Cannot rule out right upper lobe lung nodule.
Suggest short-term follow-up with a CT of the chest in about 6 to 8 weeks to document improvement/resolution of infiltrates.
Can transition IV abx to PO when improving
-
Smoking cessation encouraged.
Suggest outpatient pulmonary follow-up to complete pulmonary function testing.
-
Denies symptoms suggestive of NUNU
She is certainly at risk, would recommend OP study
-
DVT prophylaxis
-
Will continue to follow
Subjective Data
-
Date of Service:
Date of Service: September 20, 2023
Chief Complaint: Pulmonary Follow Up
Subjective:
Doing better today, remains on 2L NC
Coughing but not very productive
Remains on IV abx
Still SOB
Objective Data
Data Reviewed
Vital Signs / I&O / Oxygen:
Vital Signs
Temp Pulse Resp BP Pulse Ox
99.0 F 88 16 147/77 91
09/20/23 07:00 09/20/23 07:05 09/20/23 07:05 09/20/23 07:00 09/20/23 07:05
Intake and Output
09/19/23 09/20/23 09/21/23
06:59 06:59 06:59
Intake Total 1260 / 1260 2580 / 2580
Balance 1260 / 1260 2580 / 2580
SaO2 91
Nasal Cannula flow liters per 3
minute
Physical Exam
General: Comfortable and Other (NAD)
HEENT: Normocephalic, Anicteric and Moist Mucous Membranes
Cardiovascular: S1-S2 and Regular Rhythm
Respiratory: Clear (overall decreased) and Non-Labored Respirations
GI: Soft, Non Distended and Non Tender
Neurology: Awake, Alert, Oriented, AO x 3 and No Motor Deficits
Skin: Warm, Dry and Good Color
Labs/Micro/Reports
Lab Data
09/19/23 07:14
09/19/23 07:14
Microbiology
09/19/23 09:58 Sputum Respiratory Culture - Preliminary
Usual Respiratory Capri
09/19/23 09:58 Sputum Gram Stain - Preliminary
[2023-09-20 13:02] LABS: Blood Urea Nitrogen 12 mg/dl (7-17); Calcium 9.1 mg/dl (8.4-10.2); Carbon Dioxide 37 mmol/L (22-30); Chloride 97 mmol/L (98-107); Estimated Creatinine Clearance 115 ml/min; Glucose 166 mg/dl (70-99); Sodium 137 mmol/L (135-145); eGFR > 60.00
[2023-09-20 15:00] VITALS: BP 131/64
[2023-09-20] MEDS: DECADRON 4 MG IV (15:46)
--- NOTE | 2023-09-20 16:06 | CM ---
Patient seen bedside, reports she will likely be here through the weekend. Patient remains on O2, IV antibiotics. CM will continue to follow for all discharge planning needs. Watch for home O2 eval prior to discharge.
Plan; home no needs, watch for home O2 needs.
[2023-09-20] MEDS: ROCEPHIN 1000 MG IV (17:48)
[2023-09-20] MEDS: STERILE WATER FOR INJECTION 10 ML IV (17:48)
[2023-09-20] MEDS: MUCINEX 1200 MG PO (19:48)
[2023-09-20] MEDS: REFRESH CELLUVISC GEL 1 DROPS BOTH EYES (20:55)
[2023-09-20] MEDS: VITAMIN D3 (cholecalciferol) 125 MCG PO (20:55)
[2023-09-20] MEDS: ZINC SULFATE 220 MG PO (20:55)
[2023-09-20] MEDS: ARIMIDEX 1 MG PO (20:56)
[2023-09-20] MEDS: ZITHROMAX INFUSION 250 IV (21:10)
[2023-09-20 21:12] LABS: Urine Albumin Negative (Neg - Trace); Urine Bilirubin Negative (Negative); Urine Character Clear (Clear); Urine Color Straw; Urine Glucose Negative (Negative); Urine Ketone Negative (Negative); Urine Leukocyte Negative (Negative); Urine Nitrite Negative (Negative); Urine Occult Blood Negative (Negative); Urine Urobilinogen Negative (Neg - 1+)
[2023-09-20 23:20] VITALS: BP 134/69
[2023-09-21] MEDS: DECADRON 4 MG IV ×2 (03:23→15:40)
[2023-09-21 07:00] VITALS: BP 134/72
[2023-09-21] MEDS: DUONEB 3 ML INH ×3 (07:33→20:04)
[2023-09-21] MEDS: ADVAIR HFA 230/21 MCG INHALER 2 PUFF INH ×2 (07:33→20:04)
[2023-09-21] MEDS: PULMICORT 0.5 MG INH ×2 (07:33→20:04)
--- NOTE | 2023-09-21 08:54 | W.PN.HOSP.TC ---
Today's Communication/Plan
-
IV antibiotics. IV steroids. Oxygen
Assessment / Plan
Assessment / Plan
Physical exam:
General: Well Developed, Well Nourished and No Apparent Distress
HEENT: Normocephalic, Atraumatic and Moist Mucous Membranes
Respiratory: Decreased breath sounds bilateral; Prolonged expiratory phase, Negative Wheezes, Rales or Rhonchi
Cardiac: Regular Rhythm and S1/S2
GI: Soft, Nontender and Nondistended
Musculoskeletal: No Clubbing, No Cyanosis and No Edema
Neuro: Awake, Alert and Oriented
Psych: Calm
A/P:
Impression:
Right lower lobe pneumonia, community-acquired.
Acute hypoxic respiratory insufficiency secondary to above
Sepsis ruled out.
COPD exacerbation, mild
Other conditions:
Endometriosis status post tubo-ovarian surgery
Polycystic ovary syndrome
Chronic pain requiring opiate administration
Tobacco use disorder, ongoing.
Plan:
Right lower lobe pneumonia.
Acute hypoxic respiratory insufficiency secondary to above.
Continue oxygen supplementation currently on 3 to 4 L nasal cannula with no evidence of respiratory distress.
Antibiotics ceftriaxone/Zithromax covering community-acquired pathogens
COPD
Tobacco use disorder
Persistently hypoxic requiring oxygen supplementation at 3 L of nasal cannula
CT scan of the chest on 09/18 negative for pulmonary embolism and multifocal right-sided pneumonia. No pleural effusion.
Continue nebulized bronchodilators changed to standing dose
Continue inhaled steroids
Pulmonary started her on IV steroids yesterday, dexamethasone 4 mg every 12 hours.
Pulmonary input appreciated.
Updated at bedside
Tobacco use disorder.
Offered nicotine patch and declined.
Endometriosis status post tubo-ovarian surgery
Polycystic ovarian syndrome
Adherence of fallopian tube to bowel
-Continue Vicodin
Full code
DVT prophylaxis- heparin
Regular diet
Anticipated Discharge: 24 - 48 hours
Subjective/Interval History
-
Date of Service: September 21, 2023
Patient overall feels better, less shortness of breath. She states that her cough is a little more productive. Afebrile. Still requiring oxygen
Objective Data
-
Vital Signs:
Vital Signs
Temp Pulse Resp BP Pulse Ox
98.7 F 90 15 134/72 92
09/21/23 07:00 09/21/23 07:39 09/21/23 07:39 09/21/23 07:00 09/21/23 07:00
I&O
09/20/23 09/21/23 09/22/23
06:59 06:59 06:59
Intake Total 2580 / 2580 730 / 730
Balance 2580 / 2580 730 / 730
[2023-09-21 09:26] VITALS: BP 132/73; PULSE 96; O2SAT 90
[2023-09-21] MEDS: NORCO 7.5/325 1 TABLET PO (10:28)
[2023-09-21] MEDS: HEPARIN 5000 UNITS SC ×2 (10:28→20:51)
[2023-09-21] MEDS: MUCINEX 1200 MG PO ×2 (10:28→20:51)
[2023-09-21] MEDS: ZYRTEC 10 MG PO (10:28)
--- NOTE | 2023-09-21 10:34 | W.PN.PUL3 ---
Today's Communication / Plan
-
Continue IV abx, complete 7 days of Rocephin assuming she continues to improve and remains afebrile for 48 hours prior to stop
Wean O2 as tolerated, home O2 eval needed prior to discharge
Continue decadron with slow prednisone taper upon discharge as she is still having faint expiratory wheezing as of today's exam (09/20)
Continue mucinex at 1200mg BID + flutter valve
Encouraged OOB/PT/IS
OP pulmonary FU eventually post discharge - she needs PFTs to assess for COPD and its severity
Assessment
-
57-year-old woman with with history of former smoking,? COPD not on inhalers, came to the hospital complaining of shortness of breath. Found to have pneumonia, bronchospastic and hypoxemic. We were consulted on 09/19/2023 for evaluation, management
assistance.
Acute bronchospasm/suspected COPD exacerbation
RLL/community-acquired pneumonia
Acute respiratory failure with hypoxia requiring supplemental oxygen
CT chest: 09/19/2023, showed multifocal pneumonia of the right lung. No evidence for pulmonary embolism. Upper lobe predominant emphysema.
COVID-negative
-
Conditions present prior admission:
Polycystic ovarian syndrome
Endometriosis
Breast CA on right -s/p lumpectomy and XRT 01/2023
? COPD: Uncertain diagnosis. Emphysema on CAT scan noted 09/19/2023. No PFT available. On Wixela/Albuterol PRN. Not following with pulmonary; her PCP was previously managing her ?COPD
Adhesion to the fallopian tube/bowel on chronic Vicodin
Tobacco abuse 40py history, last 1 week ago.
Plan
O2 weaned down to 2L NC
Will need home O2 assessment prior to discharge
Clinical picture consistent with community-acquired pneumonia with suspected acute exacerbation of COPD given upper lobe predominant emphysema on CT scan.
Does report chronic component of SOB for years.
Patient with decreased breath sounds bilaterally, and faint end-expiratory wheezing heard today (09/21/2023)
Continue DuoNebs TID + budesonide BIDwith prn doses in between
Okay to continue inhalers if able to maintain proper technique.
She felt better after 1 dose of decadron 09/15
Continue Decadron IV q12 (equivalent to 53 mg of prednisone)
Complete prednisone taper at discharge
Continue antibiotics with ceftriaxone/Zithromax --> started on 09/15
- Complete 7 days total of rocephin, and she is s/p 5 days of zithromax
Afebrile; leukocytosis resolved as of 09/18
Acapella device/Mucolytic's with 1200mg mucinex
We reviewed airway clearance
So far sputum culture showing normal capri
Denies swallowing issues
CT images reviewed and showed groundglass opacity on the right upper lobe around 1.7 cm as well as right lower lobe infiltrate. Unclear whether all this is infectious.
Cannot rule out right upper lobe lung nodule.
Suggest short-term follow-up with a CT of the chest in about 6 to 8 weeks to document improvement/resolution of infiltrates.
Transition IV abx to PO when improving and when close to discharge
-
Smoking cessation strongly encouraged.
Suggest outpatient pulmonary follow-up to complete pulmonary function testing.
-
Denies symptoms suggestive of NUNU
She is certainly at risk, would recommend OP study
-
DVT prophylaxis
-
Will continue to follow
Total time spent today was 35 minutes for this encounter. Time includes reviewing laboratory test/imaging results, reviewing pertinent medical records, obtaining and reviewing medical history, performing an appropriate exam, ordering medications,
tests and procedures. Time also includes documentation of this encounter, coordinating patient care and communicating with other healthcare professionals. Total time does not include separately billed tests performed on this date of service.
Subjective Data
-
Date of Service:
Date of Service: September 21, 2023
Chief Complaint: Pulmonary Follow Up
Subjective:
Seen and evaluated today at bedside. On 2 L/min nasal cannula, still coughing up phlegm and does not feel ready to go home yet. She sometimes removes her O2 and goes to the bathroom and comes back and her saturations are in the low 80s at that
time. She does not feel ready to go home yet. Denies chest pain, MARQUEZ, abd pain, N/V/f/c.
Review of Systems
General: Other (Negative unless mentioned above)
Objective Data
Data Reviewed
Vital Signs / I&O / Oxygen:
Vital Signs
Temp Pulse Resp BP Pulse Ox
98.7 F 90 15 134/72 92
09/21/23 07:00 09/21/23 07:39 09/21/23 07:39 09/21/23 07:00 09/21/23 07:00
Intake and Output
09/20/23 09/21/23 09/22/23
06:59 06:59 06:59
Intake Total 2580 / 2580 730 / 730
Balance 2580 / 2580 730 / 730
SaO2 92
Nasal Cannula flow liters per 2
minute
Physical Exam
General: Respiratory Distress (Negative), Comfortable and Other (NAD)
HEENT: Normocephalic, Anicteric and Moist Mucous Membranes
Cardiovascular: S1-S2, Peripheral Edema (Negative) and Other (Distant cardiac sounds)
Respiratory: Wheeze ([place] upon end expiration bilaterally in the mid to upper lung [place]), Crackles (Negative), Rhonchi (Negative), Non-Labored Respirations and Other (Reduced breath sounds bilaterally)
GI: Soft, Non Distended and Non Tender
Neurology: AO x 3 and Tremors (Negative)
Skin: Warm, Dry and Jaundice (Negative)
Labs/Micro/Reports
Lab Data
09/19/23 07:14
09/20/23 12:29
Microbiology
09/19/23 09:58 Sputum Respiratory Culture - Final
Usual Respiratory Capri
09/19/23 09:58 Sputum Gram Stain - Final
[2023-09-21 15:00] VITALS: BP 134/70
[2023-09-21] MEDS: ROCEPHIN 1000 MG IV (17:41)
[2023-09-21] MEDS: STERILE WATER FOR INJECTION 10 ML IV (17:41)
[2023-09-21] MEDS: ZINC SULFATE 220 MG PO (20:51)
[2023-09-21] MEDS: VITAMIN D3 (cholecalciferol) 125 MCG PO (20:51)
[2023-09-21] MEDS: ARIMIDEX 1 MG PO (20:51)
[2023-09-21] MEDS: REFRESH CELLUVISC GEL 1 DROPS BOTH EYES (20:51)
[2023-09-21 23:02] VITALS: BP 122/60
[2023-09-22] MEDS: DECADRON 4 MG IV ×2 (02:58→18:01)
[2023-09-22] MEDS: PULMICORT 0.5 MG INH ×2 (07:15→20:52)
[2023-09-22] MEDS: ADVAIR HFA 230/21 MCG INHALER 2 PUFF INH ×2 (07:15→20:52)
[2023-09-22] MEDS: DUONEB 3 ML INH ×3 (07:16→20:56)
[2023-09-22 07:47] VITALS: BP 133/72
[2023-09-22] MEDS: ZYRTEC 10 MG PO (09:24)
[2023-09-22] MEDS: NORCO 7.5/325 1 TABLET PO (09:24)
[2023-09-22] MEDS: MUCINEX 1200 MG PO ×2 (09:24→20:47)
--- NOTE | 2023-09-22 09:26 | W.PN.HOSP.TC ---
Today's Communication/Plan
-
Continue IV antibiotics. Continue IV steroids.
Assessment / Plan
Assessment / Plan
Physical exam:
General: Well Developed, Well Nourished and No Apparent Distress
HEENT: Normocephalic, Atraumatic and Moist Mucous Membranes
Respiratory: Decreased breath sounds bilateral; Prolonged expiratory phase with faint scattered wheezes, Negative Rales or Rhonchi
Cardiac: Regular Rhythm and S1/S2
GI: Soft, Nontender and Nondistended
Musculoskeletal: No Clubbing, No Cyanosis and No Edema
Neuro: Awake, Alert and Oriented
Psych: Calm
A/P:
Impression:
Right lower lobe pneumonia, community-acquired.
Acute hypoxic respiratory insufficiency secondary to above
Sepsis ruled out.
COPD exacerbation, mild
Other conditions:
Endometriosis status post tubo-ovarian surgery
Polycystic ovary syndrome
Chronic pain requiring opiate administration
Tobacco use disorder, ongoing.
Plan:
Right lower lobe pneumonia.
Acute hypoxic respiratory insufficiency secondary to above.
Continue oxygen supplementation currently on 3 to 4 L nasal cannula with no evidence of respiratory distress.
Continue antibiotics ceftriaxone covering community-acquired pathogens. Discontinue azithromycin since received enough coverage.
COPD
Tobacco use disorder
Persistently hypoxic requiring oxygen supplementation at 3 L of nasal cannula
CT scan of the chest on 09/18 negative for pulmonary embolism and multifocal right-sided pneumonia. No pleural effusion.
Continue nebulized bronchodilators changed to standing dose
Continue inhaled steroids
Pulmonary started her on IV steroids, dexamethasone 4 mg every 12 hours. Likely able to switch to oral over the next 24 hours.
Pulmonary input appreciated.
Updated at bedside
PT eval appreciated
Tobacco use disorder.
Offered nicotine patch and declined.
Endometriosis status post tubo-ovarian surgery
Polycystic ovarian syndrome
Adherence of fallopian tube to bowel
-Continue Vicodin
Full code
DVT prophylaxis- heparin
Regular diet
Anticipated Discharge: 24 - 48 hours
Subjective/Interval History
-
Date of Service: September 22, 2023
Patient feels better overall. She tells me that is the first time she is coughing up some sputum. Remains on oxygen. Afebrile
Objective Data
-
Vital Signs:
Vital Signs
Temp Pulse Resp BP Pulse Ox
98.5 F 79 18 133/72 92
09/22/23 07:47 09/22/23 07:47 09/22/23 07:47 09/22/23 07:47 09/22/23 07:47
I&O
09/21/23 09/22/23 09/23/23
06:59 06:59 06:59
Intake Total 730 / 730 630 / 630
Balance 730 / 730 630 / 630
[2023-09-22] MEDS: HEPARIN 5000 UNITS SC ×2 (09:27→20:47)
--- NOTE | 2023-09-22 11:28 | W.PN.PUL3 ---
Today's Communication / Plan
-
Continue IV abx, complete 7 days of Rocephin assuming she continues to improve and remains afebrile for 48 hours prior to stopping
Wean O2 as tolerated, home O2 eval needed prior to discharge
Continue decadron with slow prednisone taper upon discharge as she was having faint expiratory wheezing as of exam on 09/20 (resolved as of today - 09/21)
Continue mucinex at 1200mg BID + flutter valve
Encouraged OOB/PT/IS
OP pulmonary FU eventually post discharge - she needs PFTs to assess for COPD and its severity
Assessment
-
57-year-old woman with with history of former smoking,? COPD not on inhalers, came to the hospital complaining of shortness of breath. Found to have pneumonia, bronchospastic and hypoxemic. We were consulted on 09/19/2023 for evaluation, management
assistance.
Impression:
Acute bronchospasm/suspected COPD exacerbation
RLL/community-acquired pneumonia
Acute respiratory failure with hypoxia requiring supplemental oxygen
CT chest: 09/19/2023, showed multifocal pneumonia of the right lung. No evidence for pulmonary embolism. Upper lobe predominant emphysema.
COVID-negative
-
Conditions present prior admission:
Polycystic ovarian syndrome
Endometriosis
Breast CA on right -s/p lumpectomy and XRT 01/2023
? COPD: Uncertain diagnosis. Emphysema on CAT scan noted 09/19/2023. No PFT available. On Wixela/Albuterol PRN. Not following with pulmonary; her PCP was previously managing her ?COPD
Adhesion to the fallopian tube/bowel on chronic Vicodin
Tobacco abuse 40py history, last 1 week ago.
Plan
O2 weaned down to 2L NC and she sometimes is on room air at rest
Will need home O2 assessment prior to discharge
Clinical picture consistent with community-acquired pneumonia with suspected acute exacerbation of COPD given upper lobe predominant emphysema on CT scan.
Does report chronic component of SOB for years.
Patient with decreased breath sounds bilaterally, and faint end-expiratory wheezing heard on 09/21/2023; resolved wheezing as of today (09/21)
Continue DuoNebs TID + budesonide BID with prn doses in between
Okay to continue inhalers if able to maintain proper technique.
She felt better after 1 dose of decadron 09/15
Continue Decadron IV q12 (equivalent to 53 mg of prednisone)
Complete prednisone taper at discharge
Continue antibiotics with ceftriaxone--> started on 09/15
- Complete 7 days total of rocephin, and she is s/p 5 days of zithromax
Afebrile; leukocytosis resolved as of 09/18
Acapella device/Mucolytic's with 1200mg mucinex
We reviewed airway clearance
So far sputum culture showing normal capri
Denies swallowing issues
CT images reviewed and showed groundglass opacity on the right upper lobe around 1.7 cm as well as right lower lobe infiltrate. Unclear whether all this is infectious.
Cannot rule out right upper lobe lung nodule.
Suggest short-term follow-up with a CT of the chest in about 6 to 8 weeks to document improvement/resolution of infiltrates.
Transition IV abx to PO when improving and when close to discharge (can do Cefdnir to finish ABx course)
-
Smoking cessation strongly encouraged.
Suggest outpatient pulmonary follow-up to complete pulmonary function testing.
-
Denies symptoms suggestive of NUNU
She is certainly at risk, would recommend OP study
-
DVT prophylaxis
-
Will continue to follow; I suspect she will be ready for discharge over next 1-2 days.
Total time spent today was 35 minutes for this encounter. Time includes reviewing laboratory test/imaging results, reviewing pertinent medical records, obtaining and reviewing medical history, performing an appropriate exam, ordering medications,
tests and procedures. Time also includes documentation of this encounter, coordinating patient care and communicating with other healthcare professionals. Total time does not include separately billed tests performed on this date of service.
Subjective Data
-
Date of Service:
Date of Service: September 22, 2023
Chief Complaint: Pulmonary Follow Up
Subjective:
Seen and evaluated today at bedside. On 2 L/min nasal cannula saturating 93%. She says she is up out of bed and feels better but still with fatigue with exertion and shortness of breath. Bringing up phlegm as long as she gets hot tea. Mucinex
also seems to be helping. Denies CP, MARQUEZ, abd pain, N/V/f/c.
Review of Systems
General: Other (Negative unless mentioned above)
Objective Data
Data Reviewed
Vital Signs / I&O / Oxygen:
Vital Signs
Temp Pulse Resp BP Pulse Ox
98.5 F 79 18 133/72 92
09/22/23 07:47 09/22/23 07:47 09/22/23 07:47 09/22/23 07:47 09/22/23 07:47
Intake and Output
09/21/23 09/22/23 09/23/23
06:59 06:59 06:59
Intake Total 730 / 730 630 / 630
Balance 730 / 730 630 / 630
SaO2 92
Nasal Cannula flow liters per 2
minute
Physical Exam
General: Respiratory Distress (Negative), Comfortable and Other (NAD)
HEENT: Normocephalic, Anicteric and Moist Mucous Membranes
Cardiovascular: S1-S2, Peripheral Edema (Negative) and Other (Distant cardiac sounds)
Respiratory: Wheeze (negative), Crackles (Negative), Rhonchi (Negative), Non-Labored Respirations and Other (Reduced breath sounds bilaterally)
GI: Soft, Non Distended and Non Tender
Neurology: AO x 3 and Tremors (Negative)
Skin: Warm, Dry and Jaundice (Negative)
Labs/Micro/Reports
Lab Data
09/19/23 07:14
09/20/23 12:29
Microbiology
09/19/23 09:58 Sputum Respiratory Culture - Final
Usual Respiratory Capri
09/19/23 09:58 Sputum Gram Stain - Final
--- NOTE | 2023-09-22 12:50 | PTCARENOTE ---
Patient OOB in room with steady gait. Patient sitting in bed with O2 off, RA sat 94%. Patient states, I went to the bathroom without oxygen and when I came out my RA sat was 68%.' (RN did not witness).
[2023-09-22 15:17] VITALS: BP 117/61
[2023-09-22] MEDS: ROCEPHIN 1000 MG IV (18:00)
[2023-09-22] MEDS: STERILE WATER FOR INJECTION 10 ML IV (18:01)
[2023-09-22] MEDS: TYLENOL 650 MG PO (19:37)
[2023-09-22] MEDS: VITAMIN D3 (cholecalciferol) 125 MCG PO (20:48)
[2023-09-22] MEDS: ARIMIDEX 1 MG PO (20:48)
[2023-09-22] MEDS: ZINC SULFATE 220 MG PO (20:48)
[2023-09-22] MEDS: REFRESH CELLUVISC GEL 1 DROPS BOTH EYES (20:48)
[2023-09-22 23:17] VITALS: BP 111/68
[2023-09-23] MEDS: DECADRON 4 MG IV ×2 (06:26→21:57)
[2023-09-23] MEDS: ADVAIR HFA 230/21 MCG INHALER 2 PUFF INH ×2 (07:17→19:35)
[2023-09-23] MEDS: DUONEB 3 ML INH ×3 (07:17→19:35)
[2023-09-23] MEDS: PULMICORT 0.5 MG INH ×2 (07:17→19:37)
[2023-09-23 07:20] VITALS: BP 110/75
[2023-09-23] MEDS: MUCINEX 1200 MG PO ×2 (07:44→21:57)
[2023-09-23] MEDS: ZYRTEC 10 MG PO (07:44)
[2023-09-23] MEDS: HEPARIN 5000 UNITS SC ×2 (07:44→21:57)
[2023-09-23] MEDS: NORCO 7.5/325 1 TABLET PO (07:44)
--- NOTE | 2023-09-23 08:07 | PTCARENOTE ---
RN into see patient this am. Patient is yelling and cursing, due to another patient being admitted to her room at 0300. Patient states, 'I want the lazy correctional supervisor lieutenant that made that decision in my room now. RN attempted to explain the admission
process, but patient was not satisfied with the explanation. Patient told her roommate not to go into the bathroom until her belongings are removed-words were exchanged between the two. Patient verbally abused cafeteria staff, because they would
not send her 2 orders of pancakes. Patient states, 'I will make you cry, you don't know who you are speaking to.' Patient expressed she has no respect for young doctors and she will let them know when they come in her room. Patient wants her door
and curtain closed at all times, if staff does not close the door she will yell at staff to close the door.
RN provided emotional support and meet patients needs to the best of her ability. Spouse at bedside and trying to calm patient down-unsuccessfully.
--- NOTE | 2023-09-23 09:00 | PTCARENOTE ---
Multi Purpose Machine Operator in to speak with patient at patient's request. After discussion with supervisor pigment making, Patient is apologetic and no longer angry at present. RN continues to keep patient's door and curtain closed per patient's request.
--- NOTE | 2023-09-23 12:12 | PTCARENOTE ---
Patient encourage to ambulate in halls, patient verbalized understanding.. Full O2 tank in room and new O2 tubing provided.
--- NOTE | 2023-09-23 13:04 | CM ---
Patient seen bedside, reports no needs to CM at this time. Patient hopeful for discharge tomorrow. Watch for home O2 needs prior to discharge. CM will continue to follow for all discharge planning needs.
Plan; home no needs vs home with O2.
[2023-09-23 15:06] VITALS: BP 122/48
[2023-09-23 15:15] VITALS: BP 122/48; PULSE 96; O2SAT 91
[2023-09-23 16:08] VITALS: BP 122/48; PULSE 96; O2SAT 91
--- NOTE | 2023-09-23 16:36 | W.PN.PUL3 ---
Today's Communication / Plan
-
Okay to discontinue antibiotics
Transition to oral prednisone, taper over the next 10 to 14 days
Add GERD therapy while on steroids
Check ambulatory saturation
She will require follow-up CT chest for right upper lobe partially solid/groundglass nodule in the next 4 to 6 weeks
Assessment
-
57-year-old woman with with history of former smoking,? COPD not on inhalers, came to the hospital complaining of shortness of breath. Found to have pneumonia, bronchospastic and hypoxemic. We were consulted on 09/19/2023 for evaluation, management
assistance.
Impression:
Acute bronchospasm/suspected COPD exacerbation
RLL/community-acquired pneumonia
Acute respiratory failure with hypoxia requiring supplemental oxygen
CT chest: 09/19/2023, showed multifocal pneumonia of the right lung. No evidence for pulmonary embolism. Upper lobe predominant emphysema.
COVID-negative
-
Conditions present prior admission:
Polycystic ovarian syndrome
Endometriosis
Breast CA on right -s/p lumpectomy and XRT 01/2023
? COPD: Uncertain diagnosis. Emphysema on CAT scan noted 09/19/2023. No PFT available. On Wixela/Albuterol PRN. Not following with pulmonary; her PCP was previously managing her ?COPD
Adhesion to the fallopian tube/bowel on chronic Vicodin
Tobacco abuse 40py history, last 1 week ago.
Plan
Patient has been on room air, 96%
Chest exam with decreased breath sounds, no wheezes
Patient conversant without use of accessory muscles
Clinical picture consistent with community-acquired pneumonia with suspected acute exacerbation of COPD given upper lobe predominant emphysema on CT scan.
Does report chronic component of SOB for years.
Moving forward
Continue DuoNebs TID + budesonide BID with prn doses in between
Okay to continue inhalers if able to maintain proper technique.
She felt better after 1 dose of decadron 09/15
Okay to transition to oral prednisone this morning. Orders placed
Complete prednisone taper at discharge, decrease by 10 mg every 3 days until off
Continue antibiotics with ceftriaxone--> started on 09/15
- Complete 7 days total of rocephin, and she is s/p 5 days of zithromax, okay to discontinue today
Afebrile; leukocytosis resolved as of 09/18
Acapella device/Mucolytic's with 1200mg mucinex
We reviewed airway clearance
So far sputum culture showing normal capri
Denies swallowing issues
CT images reviewed and showed groundglass opacity on the right upper lobe around 1.7 cm as well as right lower lobe infiltrate. Unclear whether all this is infectious.
Cannot rule out right upper lobe lung nodule.
Suggest short-term follow-up with a CT of the chest in about 6 to 8 weeks to document improvement/resolution of infiltrates.
Transition IV abx to PO when improving and when close to discharge (can do Cefdnir to finish ABx course)
Smoking cessation strongly encouraged.
Suggest outpatient pulmonary follow-up to complete pulmonary function testing.
Denies symptoms suggestive of NUNU
She is certainly at risk, would recommend OP study
DVT prophylaxis: Subcutaneous heparin continues
GERD therapy: Would add while on steroids
Anticipate discharge in the next 24 hours. Check ambulatory saturation
Follow-up information left in chart
Subjective Data
-
Date of Service:
Date of Service: September 23, 2023
Chief Complaint: Pulmonary Follow Up
Subjective:
Patient examined earlier this morning, late entry. Patient does exhibit improvement objectively and subjectively. Less short of breath, denies chest tightness. Has mild cough, nonproductive, no hemoptysis. Appears conversant and in good spirits.
Off oxygen therapy throughout my interview, saturation 96%
Objective Data
Data Reviewed
Vital Signs / I&O / Oxygen:
Vital Signs
Temp Pulse Resp BP Pulse Ox
98.7 F 96 18 122/48 91
09/23/23 15:06 09/23/23 15:06 09/23/23 15:06 09/23/23 15:06 09/23/23 15:06
Intake and Output
09/22/23 09/23/23 09/24/23
06:59 06:59 06:59
Intake Total 630 / 630 1360 / 1360
Balance 630 / 630 1360 / 1360
SaO2 91
Nasal Cannula flow liters per 2
minute
Physical Exam
General: Comfortable and Other (NAD)
HEENT: Normocephalic, Anicteric and Moist Mucous Membranes
Cardiovascular: S1-S2, Regular Rhythm, Murmur (n), Rub (n) and Peripheral Edema (Negative)
Respiratory: Wheeze (negative), Crackles (Negative), Rhonchi (Negative), Non-Labored Respirations and Other (Reduced breath sounds bilaterally)
GI: Soft, Non Distended and Non Tender
Neurology: Awake, Alert and No Motor Deficits (Able to sit up without assistance)
Skin: Warm, Dry, Jaundice (Negative) and Rash (n)
Labs/Micro/Reports
Lab Data
09/19/23 07:14
09/20/23 12:29
Microbiology
09/19/23 09:58 Sputum Respiratory Culture - Final
Usual Respiratory Capri
09/19/23 09:58 Sputum Gram Stain - Final
--- NOTE | 2023-09-23 17:07 | W.PN.HOSP.TC ---
Today's Communication/Plan
-
Set up for home O2.
Completed antibiotics per
Transition to oral steroids starting 09/23.
Increase activity
Discharge planing
Assessment / Plan
Assessment / Plan
Impression:
Right lower lobe pneumonia, community-acquired.
Acute hypoxic respiratory insufficiency secondary to above
Sepsis ruled out.
COPD exacerbation, mild
Other conditions:
Endometriosis status post tubo-ovarian surgery
Polycystic ovary syndrome
Chronic pain requiring opiate administration
Tobacco use disorder, ongoing.
Plan:
Right lower lobe pneumonia.
Acute hypoxic respiratory insufficiency secondary to above.
Continue oxygen supplementation currently on 2 nasal cannula with no evidence of respiratory distress.
Patient is in need of oxygen at 2 liters/minute via nasal cannula continuously due to pulse oximetry of 86% on room with ambulation.. Oxygen will help to improve hypoxemia. Patient is mobile within the home. DuoNeb therapy has been tried and is
ineffective in treating hypoxemia related symptoms. Oxygen is needed to improve symptoms.
Completed 7-day course of antibiotics on 09/22
COPD
Tobacco use disorder
Persistently hypoxic requiring oxygen supplementation at 3 L of nasal cannula
CT scan of the chest on 09/18 negative for pulmonary embolism and multifocal right-sided pneumonia. No pleural effusion.
Continue nebulized bronchodilators changed to standing dose
Continue inhaled steroids
Pulmonary started her on IV steroids, dexamethasone 4 mg every 12 hours. Likely able to switch to oral over the next 24 hours.
Pulmonary input appreciated.
Updated at bedside
PT eval appreciated
Tobacco use disorder.
Offered nicotine patch and declined.
Endometriosis status post tubo-ovarian surgery
Polycystic ovarian syndrome
Adherence of fallopian tube to bowel
-Continue Vicodin
Full code
DVT prophylaxis- heparin
Regular diet
Anticipated Discharge: 24 - 48 hours
Subjective/Interval History
-
Date of Service: September 23, 2023
Objective Data
-
Vital Signs:
Vital Signs
Temp Pulse Resp BP Pulse Ox
98.7 F 96 18 122/48 91
09/23/23 15:06 09/23/23 15:06 09/23/23 15:06 09/23/23 15:06 09/23/23 15:06
I&O
09/22/23 09/23/23 09/24/23
06:59 06:59 06:59
Intake Total 630 / 630 1360 / 1360
Balance 630 / 630 1360 / 1360
Physical Exam
-
General: Well Developed and No Apparent Distress
HEENT: Normocephalic, Atraumatic and Moist Mucous Membranes
Respiratory: Wheezes (Diffuse biphasic bilateral.) and Other (Right base bronchial sounds)
Cardiac: Regular Rhythm and S1/S2; Negative Murmur, Rub or Gallop
GI: Soft, Nontender, Nondistended and Normal Bowel Sounds; Negative Organomegaly
Rectal: Deferred by Provider
Musculoskeletal: No Clubbing, No Cyanosis and No Edema
Skin: Negative Rash
Neuro: Awake, Alert, Oriented and Nonfocal/Grossly Intact
Psych: Anxious
[2023-09-23] MEDS: VITAMIN D3 (cholecalciferol) 125 MCG PO (21:58)
[2023-09-23] MEDS: ARIMIDEX 1 MG PO (21:58)
[2023-09-23] MEDS: ZINC SULFATE 220 MG PO (21:58)
[2023-09-23] MEDS: REFRESH CELLUVISC GEL 1 DROPS BOTH EYES (21:58)
[2023-09-23] MEDS: PEPCID 20 MG PO (22:29)
--- NOTE | 2023-09-23 22:40 | PTCARENOTE ---
Health And Safety Manager entered pts room to give 2000 medications. When pt was told she had medication due at 2200 as well, pt states, 'You are to give me all my meds at once you will not be coming back and fourth at seperate times.' When pt educated that these are
the times the meds are scheduled- she refused to take any meds and said to come back at 2100 with all meds. Health And Safety Manager agreed. Pt then asked if she will be getting a dose of IV steroids tonight, when investment underwriter told pt there is none ordered and educated pt
that the transition to oral meds has started and the first dose of PO steroids will be in the morning pt became angry stating, ' You need to call the hospitalist, attending or whoever to come right now this is ridiculous how people cannot do their
jobs correctly.' Pt educated these roles have left for the day and only HVAC DESIGNER is covering. Health And Safety Manager agreed with pt to come back with meds at 2100. After leaving another pts room, investment underwriter came out to the of pt telling charge nurse they want to
speak to the sheet mill supervisor. Charge nurse alerted sheet mill supervisor. Front End Drupal Developer came to floor, pt stated how angry she was that she was told she would get a dose of IV steroids at night but then was not ordered them. Front End Drupal Developer reached out to HVAC DESIGNER and a one time
dose of IV steroids was ordered. After this pt then stated to sheet mill supervisor she does not want investment underwriter in the room again and, 'I do not believe in his competence.' Pt then continued to state that she is okay with investment underwriter giving meds but refused for investment underwriter
to give heparin shot- another nurse requested. Pt continued on stating, 'How does a doctor have a one to one conversation with me then not do what he says, he needs to be followed around by someone writing everything down for him- you all need more
training.' Front End Drupal Developer answered all needs, pt agreeable to allow investment underwriter to finish meds.
[2023-09-23 23:04] VITALS: BP 132/77
[2023-09-24 07:00] VITALS: BP 129/73
[2023-09-24] MEDS: DUONEB 3 ML INH (07:48)
[2023-09-24] MEDS: PULMICORT 0.5 MG INH (07:48)
[2023-09-24] MEDS: ADVAIR HFA 230/21 MCG INHALER 2 PUFF INH (07:48)
[2023-09-24] MEDS: DELTASONE 40 MG PO (08:04)
[2023-09-24] MEDS: NORCO 7.5/325 1 TABLET PO (08:04)
[2023-09-24] MEDS: MUCINEX 1200 MG PO (08:04)
[2023-09-24] MEDS: HEPARIN 5000 UNITS SC (08:05)
[2023-09-24] MEDS: PEPCID 20 MG PO (08:05)
[2023-09-24] MEDS: ZYRTEC 10 MG PO (08:05)
--- NOTE | 2023-09-24 10:06 | W.PN.PUL3 ---
Today's Communication / Plan
-
Continue with prednisone taper
Discharge on DuoNebs as needed
Resume Wixela at time of discharge
Tobacco cessation
Qualifies for oxygen, 2 L with activity
Will reassess as outpatient, follow-up information left in chart
Okay for discharge from pulmonary standpoint. We will sign off. Please call with questions
Assessment
-
57-year-old woman with with history of former smoking,? COPD not on inhalers, came to the hospital complaining of shortness of breath. Found to have pneumonia, bronchospastic and hypoxemic. We were consulted on 09/19/2023 for evaluation, management
assistance.
Impression:
Acute bronchospasm/suspected COPD exacerbation
RLL/community-acquired pneumonia
Acute respiratory failure with hypoxia requiring supplemental oxygen
CT chest: 09/19/2023, showed multifocal pneumonia of the right lung. No evidence for pulmonary embolism. Upper lobe predominant emphysema.
COVID-negative
-
Conditions present prior admission:
Polycystic ovarian syndrome
Endometriosis
Breast CA on right -s/p lumpectomy and XRT 01/2023
? COPD: Uncertain diagnosis. Emphysema on CAT scan noted 09/19/2023. No PFT available. On Wixela/Albuterol PRN. Not following with pulmonary; her PCP was previously managing her ?COPD
Adhesion to the fallopian tube/bowel on chronic Vicodin
Tobacco abuse 40py history, last 1 week ago.
Plan
Patient appears comfortable on room air
Chest exam with decreased breath sounds, no wheezes
Patient conversant without use of accessory muscles
Clinical picture consistent with community-acquired pneumonia with suspected acute exacerbation of COPD given upper lobe predominant emphysema on CT scan.
Does report chronic component of SOB for years.
Moving forward
Continue DuoNebs TID + budesonide BID with prn doses in between
Okay to continue inhalers if able to maintain proper technique.
The patient uses her 's nebulizer machine at home. Would discharge on DuoNebs as needed
Tolerating oral prednisone
Complete prednisone taper at discharge, decrease by 10 mg every 3 days until off
Continue antibiotics with ceftriaxone--> started on 09/15
- Complete 7 days total of rocephin, and she is s/p 5 days of zithromax, discontinued 09/22
Afebrile; leukocytosis resolved as of 09/18
Acapella device/Mucolytic's with 1200mg mucinex
We reviewed airway clearance
So far sputum culture showing normal capri
Denies swallowing issues
CT images reviewed and showed groundglass opacity on the right upper lobe around 1.7 cm as well as right lower lobe infiltrate. Unclear whether all this is infectious.
Cannot rule out right upper lobe lung nodule.
Suggest short-term follow-up with a CT of the chest in about 6 to 8 weeks to document improvement/resolution of infiltrates.
Transition IV abx to PO when improving and when close to discharge (can do Cefdnir to finish ABx course)
Smoking cessation strongly encouraged.
Suggest outpatient pulmonary follow-up to complete pulmonary function testing.
Denies symptoms suggestive of NUNU
She is certainly at risk, would recommend OP study
DVT prophylaxis: Subcutaneous heparin continues
GERD therapy: Would add while on steroids
86% on room air with ambulation of 200 feet, improved with 2 L
Would recommend discharge on home oxygen
Will reassess as outpatient, may only be short-term
Follow-up information left in chart
We will sign off. Please call with questions
Subjective Data
-
Date of Service:
Date of Service: September 24, 2023
Chief Complaint: Pulmonary Follow Up
Subjective:
Patient continues to improve. She is ambulating. She states her oxygen goes down to 86%. Tolerating oral prednisone. Cough is nonproductive, denies chest pain.
Objective Data
Data Reviewed
Vital Signs / I&O / Oxygen:
Vital Signs
Temp Pulse Resp BP Pulse Ox
98.0 F 77 18 129/73 94
09/24/23 07:00 09/24/23 07:55 09/24/23 07:55 09/24/23 07:00 09/24/23 07:55
Intake and Output
09/23/23 09/24/23 09/25/23
06:59 06:59 06:59
Intake Total 1360 / 1360 1919
Balance 1360 / 1360 1919
SaO2 94
Nasal Cannula flow liters per 2
minute
Physical Exam
General: Comfortable and Other (NAD)
HEENT: Normocephalic, Anicteric and Moist Mucous Membranes
Cardiovascular: S1-S2, Regular Rhythm, Murmur (n), Rub (n) and Peripheral Edema (Negative)
Respiratory: Wheeze (negative), Crackles (Negative), Rhonchi (Negative), Non-Labored Respirations and Other (Reduced breath sounds bilaterally)
GI: Soft, Non Distended and Non Tender
Neurology: Awake, Alert and No Motor Deficits (Able to sit up without assistance)
Skin: Jaundice (Negative) and Rash (n)
Labs/Micro/Reports
Lab Data
09/19/23 07:14
09/20/23 12:29
Microbiology
09/19/23 09:58 Sputum Respiratory Culture - Final
Usual Respiratory Capri
09/19/23 09:58 Sputum Gram Stain - Final
[2023-09-24 11:20] VITALS: BP 130/70
--- NOTE | 2023-09-24 11:26 | CM ---
Patient seen bedside, discussed Alisa from [facility] will deliver O2 tank bedside, will deliver concentrator to home, along with nebulizer. Patient reports her will provide transportation home. CM will continue to follow for all discharge
planning needs.
Plan; home with O2/nebulizer from [facility].
--- NOTE | 2023-09-24 11:42 | W.DS.TRANS ---
DC Summary - Medical Care Manager
-
Discharge Instructions:
Discharge Diagnosis/Procedures Pneumonia, COPD exacerbation
Diet Regular
Others Tests CT chest in one month
Instructions:
Stand-Alone Forms:
Changes to Home Medications: Yes
Discharge Medications:
DC Medications w/original date entered in [facility]
Cinnamon 1 tab PO DAILY Supplement 09/16/23
acetylcysteine 600 mg capsule (NAC) 600 mg PO TID Supplement 09/16/23
anastrozole 1 mg tablet 1 mg PO HS Cancer 09/16/23
carboxymethylcellulose sodium 0.5 % eye drops in a dropperette (Refresh Plus) 10 drp BOTH EYES HS Eye Condition 09/16/23
cetirizine 10 mg tablet (Zyrtec) 10 mg PO DAILY Allergies 09/16/23
cholecalciferol (vitamin D3) 125 mcg (5,000 unit) tablet (Vitamin D3) 125 mcg PO HS Supplement 09/16/23
fluticasone 500 mcg-salmeterol 50 mcg/dose blistr powdr for inhalation (Wixela Inhub) 1 inh inhalation R BID Lung/Breathing Issues 09/16/23
hydrocodone 7.5 mg-ibuprofen 200 mg tablet 1 tab PO DAILY Pain 09/16/23
ktkxmjcaivxpn-BV-oimtkteachdjl-guaifen 5 mg-10 mg-325 mg-200 mg tablet (Tylenol Cold and Flu Severe) 2 tab PO Q6HPRN PRN fever 09/16/23
quercetin 500 mg capsule 1,500 mg PO BID Supplement 09/16/23
zinc sulfate 50 mg zinc (220 mg) tablet 50 mg PO HS Supplement 09/16/23
famotidine 20 mg tablet 20 mg PO DAILY #30 tabs 09/24/23
guaifenesin 600 mg tablet, extended release 12 hr 1,200 mg (2 x 600 mg) PO Q12 #30 tabs 09/24/23
ipratropium 0.5 mg-albuterol 3 mg (2.5 mg base)/3 mL nebulization soln 3 ml inhalation TIDPRN PRN #90 ea 09/24/23
prednisone 10 mg tablet 10 mg PO DIRECTED #30 tabs 09/24/23
Home Medication Changes
Steroid taper
Pending Results: No
== END 2023-09-24 13:00 | disposition home or self-care (01) | DRG 193 ==
LOC: 4 WEST ACU 08:53
PROVIDERS: Hospitalist; Nurse Practitioner Gerontology; ADMITTING PHYSICIAN Hospitalist; ATTENDING PHYSICIAN Internal Medicine; CONSULT PHYSICIAN Internal Medicine Critical Care Medicine; EMERGENCY PHYSICIAN Emergency Medicine; FAMILY PHYSICIAN Internal Medicine
DX: J18.9 Pneumonia, unspecified organism (principal); J96.01 Acute respiratory failure with hypoxia; J44.1 Chronic obstructive pulmonary disease with (acute) exacerbation; J44.0 Chronic obstructive pulmonary disease with (acute) lower respiratory infection; E28.2 Polycystic ovarian syndrome; F17.200 Nicotine dependence, unspecified, uncomplicated; G89.29 Other chronic pain; J43.2 Centrilobular emphysema; Z79.891 Long term (current) use of opiate analgesic; Z85.3 Personal history of malignant neoplasm of breast; Z11.52 Encounter for screening for COVID-19
CPT/HCPCS: 71045; 71275; 80048; 80053; 81003; 83880; 85025; 85610; 85730; 87070; 87205; 87811; 93005; 94640; 96374; 96375; 97116; 97162; 97530; 99291; 99406; Q9967

== ENCOUNTER → 2023-11-15 08:33 | Outpatient (REF) | payer OTHER, SELFPAY | LOC: RAD 08:33 | PROVIDERS: ATTENDING PHYSICIAN Nurse Practitioner Family; FAMILY PHYSICIAN Internal Medicine | DX: Z87.01 Personal history of pneumonia (recurrent) (principal) | CPT/HCPCS: 71250 ==

== ENCOUNTER 2024-02-25 21:36 | Inpatient (IN) | payer OTHER, SELFPAY ==
[2024-02-25 15:52] VITALS: BP 128/79
--- NOTE | 2024-02-25 15:54 | ED.GENMED ---
ED Provider Triage
<Ivana Salinas PA-C - Last Filed: 02/25/24 15:55>
-
Patient seen by provider in Triage?: Seen in Triage
Attestation: A medical screening examination has been initiated by a qualified medical provider. Based on the assessment performed at this time, it has been determined that an emergent medical condition may exist and the patient has been informed
that further medical evaluation and possible additional diagnostic testing may be needed.
HPI: 58yoF here with URI symptoms and SOB. C/o cough and fevers. also sick. Seen by PCP yesterday and started on prednisone and a Z pack. Hx of COPD on 2L NC QHS but has been using 3-4L consistently throughout the past few days.
GENERAL: Alert , in no apparent distress
EYE: No visual abnormalities.
NECK: Trachea midline
ENT: No visible abnormalities.
LUNGS: No acute respiratory distress
NEUROLOGICAL: Alert and oriented
SKIN: Skin intact. No visible changes.
MUSCULOSKELETAL: Moving extremities normally
PSYCH: Normal and appropriate interaction.
This is a medical evaluation conducted in person to initiate diagnostic evaluation and provide initial therapeutics. Please see further documentation by the treating clinician.
Cardiac labs, COVID/flu swab, EKG, and CXR ordered.
History of Present Illness
<Ivana Salinas PA-C - Last Filed: 02/25/24 15:55>
General
Chief Complaint: Breathing Problem
Time Seen by Provider: 02/25/24 16:38
<Trav Flood PA-C - Last Filed: 02/25/24 20:33>
History of Present Illness
History of Present Illness:
50-year-old female with history of COPD presents for evaluation of increasing shortness of breath and chest tightness over the past several days. Notes that her significant other had flulike symptoms over the weekend that she developed cough and
chest congestion 3 days ago. Typically requires nocturnal oxygen therapy but none during the day, has noted room air saturations below 80% routinely throughout the past 24 to 48 hours. Cough is productive of mucus, denies any leg swelling. Fevers
have resolved as of today.
Past History
<Ivana Salinas PA-C - Last Filed: 02/25/24 15:55>
Past History
ED Past Medical History: Cancer (Breast), COPD and Other (Polycystic ovary disease)
ED Past Surgical History: Other
Social History
Tobacco: Smoker
Living: with family
Employment: Employed
Review of Systems
<Trav Flood PA-C - Last Filed: 02/25/24 20:33>
Review of Systems
Allergies reviewed?: Yes
All Other Systems: ROS reviewed and negative except as documented in HPI and ROS
Phy Exam
<Trav Flood PA-C - Last Filed: 02/25/24 20:33>
Physical Exam
Physical Exam:
GEN: Well appearing, NAD, WDWN
HEENT: Oral mucosa moist, no scleral icterus
Cardiac: Mildly tachycardic, regular
Lung: Tachypneic on supplemental oxygen while at rest, no final cigar and box examiner muscle use, grossly diminished breath sounds with no overt wheezes or rales
MSK: No gross deformity or injuries
Skin: Good color, no pallor or jaundice, no rashes
Neuro: AO x3, moves all extremities freely
Psych: Calm, cooperative
Scores
<Trav Flood PA-C - Last Filed: 02/25/24 20:33>
Heart Failure Risk
Heart Failure Risk Score: Not Applicable
Sepsis
<JUDSON Mckinney Last Filed: 02/25/24 20:33>
Sepsis Screening
Sepsis Assessment: Sepsis Ruled Out
Sepsis Screen
Sepsis Screen: Sepsis Ruled Out
Date: 02/25/24
Time: 20:32
Course
<Ivana Salinas PA-C - Last Filed: 02/25/24 15:55>
Orders/Labs/Results
Orders:
Orders
02/25/24 15:52
Electrocardiogram (*1) Urgent
Reason for Study: Shortness of Breath
EKG- Treatment ONCE
02/25/24 15:53
CR Chest - 2 Views Urgent
Comment:
Reason For Exam: Cough, SOB
02/25/24 16:10
COVID-19 Antigen Urgent
Source: Nasal Swab
Complete Blood Count/With Diff Urgent
Comprehensive Metabolic Panel Urgent
Troponin I Urgent
Influenza A+B Rapid Molecular Urgent
ANAYA Source: Nasal Swab
Specimen Description:
02/25/24 17:08
CT Chest PE Study Urgent
Comment:
Reason For Exam: hypoxia
Ipratropium/Albuterol Sulfate [Duoneb] 3 ml INH R NOW ONE
02/25/24 18:52
Dexamethasone Sod Phosphate [Decadron] 10 mg IV NOW STA
Abnormal Lab Results
02/25/24
16:10
MCHC 32.4 L g/dL
(33.0-37.0)
Absolute Lymphs (auto) 0.7 L 10^3/uL
(1.2-3.4)
Neutrophils % 81.1 H %
(42.2-75.2)
Lymphocytes % 11.7 L %
(20.5-51.1)
Chloride 94 L mmol/L
(98-107)
Carbon Dioxide 39 H mmol/L
(22-30)
Creatinine 0.5 L mg/dL
(0.6-1.0)
Glucose 135 H mg/dl
(70-99)
02/25/24 16:10
02/25/24 16:10
Vital Signs
Initial and Last Documented VS:
Initial Vital Signs
Temp Pulse Resp BP Pulse Ox
99.8 F 109 32 128/79 94
02/25/24 15:52 02/25/24 15:52 02/25/24 15:52 02/25/24 15:52 02/25/24 15:52
Last Documented Vital Signs
Temp Pulse Resp BP Pulse Ox
99.8 F 97 25 148/74 91
02/25/24 15:52 02/25/24 19:45 02/25/24 19:45 02/25/24 19:00 02/25/24 18:45
<Trav Flood PA-C - Last Filed: 02/25/24 20:33>
Orders/Labs/Results
Orders:
Orders
02/25/24 15:52
Electrocardiogram (*1) Urgent
Reason for Study: Shortness of Breath
EKG- Treatment ONCE
02/25/24 15:53
CR Chest - 2 Views Urgent
Comment:
Reason For Exam: Cough, SOB
02/25/24 16:10
COVID-19 Antigen Urgent
Source: Nasal Swab
Complete Blood Count/With Diff Urgent
Comprehensive Metabolic Panel Urgent
Troponin I Urgent
Influenza A+B Rapid Molecular Urgent
ANAYA Source: Nasal Swab
Specimen Description:
02/25/24 17:08
CT Chest PE Study Urgent
Comment:
Reason For Exam: hypoxia
Ipratropium/Albuterol Sulfate [Duoneb] 3 ml INH R NOW ONE
02/25/24 18:52
Dexamethasone Sod Phosphate [Decadron] 10 mg IV NOW STA
Abnormal Lab Results
02/25/24
16:10
MCHC 32.4 L g/dL
(33.0-37.0)
Absolute Lymphs (auto) 0.7 L 10^3/uL
(1.2-3.4)
Neutrophils % 81.1 H %
(42.2-75.2)
Lymphocytes % 11.7 L %
(20.5-51.1)
Chloride 94 L mmol/L
(98-107)
Carbon Dioxide 39 H mmol/L
(22-30)
Creatinine 0.5 L mg/dL
(0.6-1.0)
Glucose 135 H mg/dl
(70-99)
02/25/24 16:10
02/25/24 16:10
Vital Signs
Initial and Last Documented VS:
Initial Vital Signs
Temp Pulse Resp BP Pulse Ox
99.8 F 109 32 128/79 94
02/25/24 15:52 02/25/24 15:52 02/25/24 15:52 02/25/24 15:52 02/25/24 15:52
Last Documented Vital Signs
Temp Pulse Resp BP Pulse Ox
99.8 F 97 25 148/74 91
02/25/24 15:52 02/25/24 19:45 02/25/24 19:45 02/25/24 19:00 02/25/24 18:45
<Raymon Nolasco, DO - Last Filed: 02/25/24 20:05>
Orders/Labs/Results
Orders:
Orders
02/25/24 15:52
Electrocardiogram (*1) Urgent
Reason for Study: Shortness of Breath
EKG- Treatment ONCE
02/25/24 15:53
CR Chest - 2 Views Urgent
Comment:
Reason For Exam: Cough, SOB
02/25/24 16:10
COVID-19 Antigen Urgent
Source: Nasal Swab
Complete Blood Count/With Diff Urgent
Comprehensive Metabolic Panel Urgent
Troponin I Urgent
Influenza A+B Rapid Molecular Urgent
ANAYA Source: Nasal Swab
Specimen Description:
02/25/24 17:08
CT Chest PE Study Urgent
Comment:
Reason For Exam: hypoxia
Ipratropium/Albuterol Sulfate [Duoneb] 3 ml INH R NOW ONE
02/25/24 18:52
Dexamethasone Sod Phosphate [Decadron] 10 mg IV NOW STA
Abnormal Lab Results
02/25/24
16:10
MCHC 32.4 L g/dL
(33.0-37.0)
Absolute Lymphs (auto) 0.7 L 10^3/uL
(1.2-3.4)
Neutrophils % 81.1 H %
(42.2-75.2)
Lymphocytes % 11.7 L %
(20.5-51.1)
Chloride 94 L mmol/L
(98-107)
Carbon Dioxide 39 H mmol/L
(22-30)
Creatinine 0.5 L mg/dL
(0.6-1.0)
Glucose 135 H mg/dl
(70-99)
02/25/24 16:10
02/25/24 16:10
Vital Signs
Initial and Last Documented VS:
Initial Vital Signs
Temp Pulse Resp BP Pulse Ox
99.8 F 109 32 128/79 94
02/25/24 15:52 02/25/24 15:52 02/25/24 15:52 02/25/24 15:52 02/25/24 15:52
Last Documented Vital Signs
Temp Pulse Resp BP Pulse Ox
99.8 F 97 25 148/74 91
02/25/24 15:52 02/25/24 19:45 02/25/24 19:45 02/25/24 19:00 02/25/24 18:45
<Trav Flood PA-C - Last Filed: 02/25/24 20:33>
MDM/Problems Addressed
MDM/Problems Addressed:
Due to the patient's lack of clear adventitious lung sounds a PE study was obtained showing no evidence for central PE. Will treat with steroids given the underlying COPD, at this time she is outside the treatment range for antiviral therapy. Will
require hospitalization due to significant hypoxia
<Trav Flood PA-C - Last Filed: 02/25/24 20:33>
*Critical Care Note
Total Time (30-74mins, 75-104mins- exclusive of procedures): Not Applicable
ED Attending Note
<Ivana Salinas PA-C - Last Filed: 02/25/24 15:55>
-
Portions of this chart may have been created with voice recognition software.� Occasional wrong word or��sound alike� substitutions may have occurred due to the inherent limitations of voice recognition software.
<Raymon Nolasco DO - Last Filed: 02/25/24 20:05>
ED Attending Note
Patient seen and examined by attending physician: Yes
I performed the substantive portion of visit, reviewed & personally made and approve the management plan that is documented in note by myself or LARISA.: Yes
ED Attending Note:
I evaluated patient at bedside. After treatment given, the patient sats on 4 L/min of oxygen are about 96%. However she reportedly became very hypoxic with exertion. CTA negative for PE. Will keep in the hospital for further treatment including
IV steroids. She is flu positive.
Discharge Plan
Departure
Patient Disposition: Admit
Date of Disposition: 02/25/24
Time of Disposition: 19:46
Admit to: Med/Surg
Presentation/result/management discussed w/ accepting MD/DO: Hospitalist
Discharge Problem:
Influenza, Acute hypoxemic respiratory failure
Prescriptions:
No Action
hydrocodone-ibuprofen 7.5-200 mg Tablet
1 tab PO DAILY
Patient Comments:
02/25/24: last filled 01/04/24 for 120 tabs over 30 days
anastrozole 1 mg Tablet
1 mg PO HS
cetirizine [Zyrtec] 10 mg Tablet
10 mg PO DAILY
zinc sulfate 50 mg zinc (220 mg) Tablet
50 mg PO HS
carboxymethylcellulose sodium [Refresh Plus] 0.5 % Dropperette
20 drp BOTH EYES HS
acetylcysteine [NAC] 600 mg Capsule
600 mg PO BID
cholecalciferol (vitamin D3) [Vitamin D3] 125 mcg (5,000 unit) Tablet
125 mcg PO HS
quercetin 500 mg Capsule
500 mg PO HS
cinnamon bark [Cinnamon] 500 mg Capsule
500 mg PO DAILY Qty: 0
azithromycin 250 mg Tablet
250 mg PO DAILY
Patient Comments:
02/25/24: Patient has 3 doses left
prednisone 20 mg Tablet
20 mg PO DAILY
Patient Comments:
02/25/24: Patient has 3 doses left
cyanocobalamin (vitamin B-12) 1,000 mcg Tablet
1,000 mcg PO DAILY
guaifenesin 1,200 mg Tablet Extended Release 12hr
1,200 mg PO BID
Breztri Aerosphere 160-9-4.8 mcg/actuation Hfa Aerosol Inhaler
2 inh INHALATION R BID
albuterol sulfate 1.25 mg/3 mL solution for nebulization
1.25 mg inhalation R BID
famotidine 20 mg tablet
20 mg PO DAILYPRN PRN (Reason: heartburn)
albuterol sulfate 90 mcg/actuation HFA aerosol inhaler
2 puff inhalation R Q6HPRN PRN (Reason: shortness of breath or wheezing)
Referrals:
José Haro MD [Family Provider] -
Interventions
Interventions:
*Risk Screen - Suicide Last Done: 02/25/24 15:52
*General Assessment Last Done: 02/25/24 15:52
*Neglect/Abuse Screening Last Done: 02/25/24 15:52
ED- Fall Risk Assessment Last Done: 02/25/24 17:16
*ED COVID-19 Vaccine History Last Done: 02/25/24 15:52
ED- Cardiac Assessment Last Done: 02/25/24 17:16
ED- Pulmonary Assessment Last Done: 02/25/24 17:16
Discharge Date and Time
Print Language: FAROESE
[2024-02-25 16:34] LABS: % Basophils 0.2 % (0-2); % Immature Granulocytes 0.2 % (0-0.5); % Lymphocytes 11.7 % (20.5-51.1); % Monocytes 6.8 % (1.7-9.3); % Neutrophils 81.1 % (42.2-75.2); Absolute Lymphocytes 0.7 10^3/uL (1.2-3.4); Absolute Monocytes 0.4 10^3/uL (0.1-0.6); Absolute Neutrophils 4.7 10^3/uL (1.4-6.5); Hematocrit 44.4 % (37.0-47.0); Hemoglobin 14.4 g/dL (12.0-16.0); Mean Corp Hgb Conc. 32.4 g/dL (33.0-37.0); Mean Corpuscular Hgb 30.1 pg (27.0-31.0); Mean Corpuscular Volume 92.7 fL (81.0-99.0); Mean Platelet Volume 8.9 fL (7.4-10.4); Nucleated Red Blood Cells % 0 %; Platelet Count 206 10^3/uL (130-400); Red Blood Cell Count 4.79 10^6/uL (4.20-5.40); Red Cell Dist. Width 12.6 % (11.5-14.5); White Blood Cell Count 5.7 10^3/uL (4.8-10.8)
[2024-02-25 16:46] LABS: ALT (SGPT) 29 U/L (0-35); AST (SGOT) 34 U/L (14-36); Albumin 4.5 g/dl (3.5-5.0); Alkaline Phosphatase 90 U/L (38-126); Blood Urea Nitrogen 9 mg/dl (7-17); Calcium 9.4 mg/dl (8.4-10.2); Carbon Dioxide 39 mmol/L (22-30); Chloride 94 mmol/L (98-107); Glucose 135 mg/dl (70-99); Potassium 4.4 mmol/L (3.5-5.1); Sodium 140 mmol/L (135-145); Total Bilirubin 0.3 mg/dl (0.2-1.3); Total Protein 7.5 g/dl (6.3-8.2); eGFR > 60.00
[2024-02-25 16:57] LABS: Troponin I < 0.012 ng/ml
[2024-02-25 17:02] LABS: COVID-19 Antigen Negative (Negative)
[2024-02-25 17:16] VITALS: BMI 33.3
[2024-02-25] MEDS: DUONEB 3 ML INH (17:33)
--- NOTE | 2024-02-25 17:50 | EDRN ---
Patient assisted to the bathroom by Luís Flood PA-C. Patient's pulse ox after ambulating on room air 70's and heart rate 120. Patient's O2 increased to 4LNC by Luís Flood PA-C.
[2024-02-25 18:21] VITALS: BP 140/67
[2024-02-25 18:27] VITALS: BP 140/67
[2024-02-25 19:00] VITALS: BP 148/74
[2024-02-25] MEDS: DECADRON 10 MG IV (19:54)
--- NOTE | 2024-02-25 20:50 | HPS.HSE ---
Family Physician
-
Family Physician: José Haro
Chief Complaint
-
Shortness of breath
History of Present Illness
This is a 58-year-old female with history of COPD was discharged after last admission on intermittent use of 2 L of oxygen presents to the emergency department with shortness of breath and dyspnea exertion.
Patient reported that she had been using more of her oxygen lately due to starting smoking again in December. She was exposed to her spouse will develop flulike illnesses about 5 days ago. She started having symptoms 1 to 2 days later. She
reports fevers chills, dyspnea on exertion and hypoxia to 60% with ambulation. She was not coughing or wheezing. She was markedly fatigued. She saw her primary care physician yesterday will prescribe azithromycin as well as prednisone taper.
Patient states that symptoms progressed since then and she is far more dyspneic now.
In the emergency department she was afebrile, she was satting around 95% on 4 L. Blood pressure was stable. COVID test was negative. Influenza was positive. Troponin was negative. CBC was unremarkable. Electrolytes BUN/creatinine was mostly
notable for a bicarb of 39. She had imaging with chest x-ray and CT. The CT was negative for PE consistent with emphysema but does have minimal hazy groundglass airspace disease in the right middle lobe suggesting mild interstitial pneumonia. She
previously had multifocal pneumonia throughout the right lung on outpatient bone prior CT scan. Given degree of hypoxia especially with exertion the patient is to be admitted for medical management.
Medical History
Past Medical History
Past Medical History: Reports COPD
Past Surgical History: Reports Other
Social History
Tobacco: Smoker
Alcohol: None
Drug: None
Personal:
Living: With Family
Family History
Family History: Not pertinent
Allergies / Home Medications
Allergies reflects when Allergies were last updated in [employer].
Home Medications with original date entered in [employer]
Allergy/Medication List:
Allergies
Allergy/AdvReac Type Severity Reaction Status Date / Time
amoxicillin Allergy Unknown Verified 09/16/23 17:19
Home Medications
acetylcysteine 600 mg capsule (NAC) 600 mg PO BID Supplement 09/16/23
anastrozole 1 mg tablet 1 mg PO HS Cancer 09/16/23
carboxymethylcellulose sodium 0.5 % eye drops in a dropperette (Refresh Plus) 20 drp BOTH EYES HS Eye Condition 09/16/23
cetirizine 10 mg tablet (Zyrtec) 10 mg PO DAILY Allergies 09/16/23
cholecalciferol (vitamin D3) 125 mcg (5,000 unit) tablet (Vitamin D3) 125 mcg PO HS Supplement 09/16/23
cinnamon bark 500 mg capsule (Cinnamon) 500 mg PO DAILY Supplement ##0 09/16/23
hydrocodone 7.5 mg-ibuprofen 200 mg tablet 1 tab PO DAILY Pain 09/16/23
quercetin 500 mg capsule 500 mg PO HS Supplement 09/16/23
zinc sulfate 50 mg zinc (220 mg) tablet 50 mg PO HS Supplement 09/16/23
albuterol sulfate 1.25 mg/3 mL solution for nebulization 1.25 mg inhalation R BID 02/25/24
albuterol sulfate 90 mcg/actuation aerosol inhaler 2 puff inhalation R Q6HPRN PRN shortness of breath or wheezing 02/25/24
azithromycin 250 mg tablet 250 mg PO DAILY 02/25/24
budesonide 160 mcg-glycopyr 9 mcg-formot 4.8 mcg/actuation HFA inhaler (Breztri Aerosphere) 2 inh inhalation R BID 02/25/24
cyanocobalamin (vitamin B-12) 1,000 mcg tablet 1,000 mcg PO DAILY 02/25/24
famotidine 20 mg tablet 20 mg PO DAILYPRN PRN heartburn 02/25/24
guaifenesin 1,200 mg tablet, extended release 12 hr 1,200 mg PO BID 02/25/24
prednisone 20 mg tablet 20 mg PO DAILY 02/25/24
Review of Systems
-
History Source: Patient
Constitutional: Reports Fever and Fatigue
EENT: Reports No Symptoms
Respiratory: Reports Trouble Breathing
Cardiac: Reports No Symptoms
Abdomen/GI: Reports No Symptoms
: Reports No Symptoms
Musculoskeletal: Reports No Symptoms
Skin: Reports No Symptoms
Neurological: Reports No Symptoms
Endocrine: Reports No Symptoms
Hematologic/Lymphatic: Reports No Symptoms
Psych: Reports No Symptoms
Physical Exam
Vital Signs
Vital Signs
Temp Pulse Resp BP Pulse Ox
99.8 F 88 21 148/74 96
02/25/24 15:52 02/25/24 20:30 02/25/24 20:30 02/25/24 19:00 02/25/24 20:30
Physical Exam
General: Respiratory Distress
HEENT: NormoCephalic, Anicteric, Moist mucous membranes and Atraumatic
Respiratory: Decreased Breath Sounds
Cardiac: S1/S2 and Regular Rhythm
Breast: Deferred by me
GI: Soft, Non Tender, Non Distended and Normal Bowel Sounds
Rectal: Deferred by Provider
Genito-urinary: Deferred by me
Musculoskeletal: No Clubbing, No Cyanosis and No Edema
Skin: Warm
Neuro: Nonfocal/grossly intact
Hematologic/Lymphatic: No Lymphadenopathy
Psych: Calm
Laboratory Results
-
02/25/24 16:10
02/25/24 16:10
Laboratory Results
Total Bilirubin 0.3 mg/dl (0.2-1.3) 02/25/24 16:10
AST 34 U/L (14-36) 02/25/24 16:10
ALT 29 U/L (0-35) 02/25/24 16:10
Alkaline Phosphatase 90 U/L (38-126) 02/25/24 16:10
Troponin I < 0.012 ng/ml 02/25/24 16:10
Data Reviewed
-
Diagnostic Radiology: Image Personally Visualized and interpreted
CT Scan: Report Reviewed by me
Medical Tests (Nuc Med, Echo, EKG etc): Image Personally Visualized and interpreted
Lab Data: Labs Reviewed by me
Old Records: Reviewed
Impression/Plan
-
IMPRESSION:
58 y.o female with COPD on 2 L home O2 as needed presenting with hypoxia, dyspnea on exertion and fevers. Found to have influenza (symptoms began about 4 days ago) and a right middle lobe hazy opacity. She has significant oxygen requirement
satting 95 on 4 L. Emphysema but she is not wheezing or coughing. Significantly decreased airway sounds. Suspect COPD and pneumonia. Given history of on going smoking suspect significant decline in baseline pulm status as well.
PLAN:
1. Influenza - Infuenza with marked hypoxia in patient with COPD and smoking. Multiple risk factors and degree of hypoxia indicates treatment despite onset about 4 days ago as there has been decline in status. Also likely pneumonia.
- admit to med/surg
- tamiflu 75 bid
- ceftriaxone/azithromycin
- duonebs RTC and prn
- prednisone 50 mg daily
- continue her home ICS/LABA/LAMA
- supportive care
- check procal and d/c abx if negative
DVT PPX - lovenox sq
Code status - full code
[2024-02-25] MEDS: TAMIFLU 75 MG PO (22:52)
[2024-02-25] MEDS: REFRESH CELLUVISC GEL 1 DROPS BOTH EYES (22:53)
[2024-02-25] MEDS: ARIMIDEX 1 MG PO (22:53)
[2024-02-25] MEDS: STERILE WATER FOR INJECTION 10 ML IV (22:53)
[2024-02-25] MEDS: ROCEPHIN 1000 MG IV (22:53)
[2024-02-25] MEDS: FLUSH (NSS) 1 FLUSH IV (22:54)
[2024-02-25 23:00] VITALS: BP 142/96
[2024-02-26] MEDS: ZYRTEC 10 MG PO (05:41)
[2024-02-26 05:46] VITALS: BP 135/76
[2024-02-26 06:13] LABS: Hematocrit 44.2 % (37.0-47.0); Mean Corp Hgb Conc. 31.7 g/dL (33.0-37.0); Mean Corpuscular Hgb 29.4 pg (27.0-31.0); Mean Corpuscular Volume 92.7 fL (81.0-99.0); Mean Platelet Volume 8.9 fL (7.4-10.4); Platelet Count 207 10^3/uL (130-400); Red Blood Cell Count 4.77 10^6/uL (4.20-5.40); Red Cell Dist. Width 12.4 % (11.5-14.5); White Blood Cell Count 3.2 10^3/uL (4.8-10.8)
[2024-02-26 06:33] LABS: Blood Urea Nitrogen 13 mg/dl (7-17); Calcium 9.1 mg/dl (8.4-10.2); Carbon Dioxide 37 mmol/L (22-30); Chloride 94 mmol/L (98-107); Estimated Creatinine Clearance 122 ml/min; Glucose 142 mg/dl (70-99); Potassium 5.1 mmol/L (3.5-5.1); Sodium 140 mmol/L (135-145); eGFR > 60.00
[2024-02-26 06:46] LABS: Procalcitonin < 0.05 ng/ml (0.0-0.25)
[2024-02-26] MEDS: SYMBICORT 160/4.5 MCG INHALER 2 PUFF INH ×2 (07:30→20:25)
[2024-02-26] MEDS: DUONEB 3 ML INH ×4 (07:30→20:24)
--- NOTE | 2024-02-26 08:19 | W.PN.HOSP.TC ---
Today's Communication/Plan
-
Continue steroids, antibiotics, oxygen support
Assessment / Plan
Assessment / Plan
Physical Exam
General: Not in acute distress
HEENT: Normocephalic
Respiratory: Decreased Breath Sounds Bilaterally
Cardiac: S1/S2 and Regular Rhythm
GI: Soft, Non Tender, Non Distended and Normal Bowel Sounds
Musculoskeletal: No Cyanosis and No Edema
Skin: Warm
Neuro: Nonfocal/grossly intact
Psych: Calm
Assessment/Plan
58 y/o female with past medical history of COPD on 2 L home O2 as needed presented with hypoxia, dyspnea on exertion and fevers. Found to have influenza (symptoms began about 4 days ago) and a right middle lobe hazy opacity. She has significant
oxygen requirement saturating 95% on 4 L. Significantly decreased airway sounds. Suspect COPD and pneumonia. Given history of on going smoking suspect significant decline in baseline pulmonary status as well.
#Influenza - Infuenza with marked hypoxia in patient with COPD and smoking. Multiple risk factors and degree of hypoxia indicates treatment despite onset about several days ago as there has been decline in status. Also likely pneumonia.
- No PE on CT Chest
- tamiflu 75 bid
- ceftriaxone/azithromycin
- duonebs RTC and prn
- prednisone 50 mg daily -- taper the prednisone based on clinical improvement
- continue her home ICS/LABA/LAMA
- supportive care
- continue monitoring on telemetry
- Per patient request, consulted pulmonary
- Patient strongly requested to continue her home [place] despite concerns it can possibly negatively affect her COPD -- continued [place]
#History of Right lower lobe pneumonia, community-acquired.
#History of acute hypoxic respiratory insufficiency secondary to above
#Endometriosis status post tubo-ovarian surgery
#Polycystic ovary syndrome
-Resume Anastrazole tomorrow night (night of 02/27/24), as per patient request
#Chronic pain requiring opiate administration
#Tobacco use disorder, ongoing.
DVT Prophylaxis: Lovenox subq
Code Status: Full code
Anticipated Discharge: > 48 hours
Subjective/Interval History
-
Date of Service: February 26, 2024
Patient was seen and examined. She reported some shortness of breath still.
Objective Data
-
Labs:
Laboratory Results
02/26/24
05:59
WBC 3.2 L
Hgb 14.0
Hct 44.2
Plt Count 207
Sodium 140
Potassium 5.1
Chloride 94 L
Carbon Dioxide 37 H
BUN 13
Creatinine 0.5 L
Glucose 142 H
Calcium 9.1
Vital Signs:
Vital Signs
Temp Pulse Resp BP Pulse Ox
99.8 F 104 18 135/76 93
02/25/24 15:52 02/26/24 07:37 02/26/24 07:37 02/26/24 05:46 02/26/24 07:37
[2024-02-26] MEDS: MUCINEX 1200 MG PO ×2 (09:01→20:41)
[2024-02-26] MEDS: ZITHROMAX 250 MG PO (09:01)
[2024-02-26] MEDS: DELTASONE 50 MG PO (09:02)
[2024-02-26] MEDS: TAMIFLU 75 MG PO ×2 (09:02→20:41)
[2024-02-26] MEDS: PEPCID 20 MG PO (09:02)
--- NOTE | 2024-02-26 11:13 | EDRN ---
Patient is requesting to have the hospitalist order her at home medication of hydrocodone - ibuprofen that she has been taking for [address] Teresa contacted for orders and requests this RN inform the patient that it is not advised in her
current condition as it can cause respiratory depression. Informed the patient and she then became upset stating she is 'being judged' and being told these things to keep the medication from her. Updated the hospitalist of this conversation and
patient concerns. Awaiting any further orders for pain management. Patient states she can have her bring them in if she will not be getting them. Advised her that she should not take medications outside of the ones ordered in case there is
any interactions or adverse effects. Patient verbalized an understanding.
[2024-02-26 12:08] VITALS: BP 121/96
[2024-02-26] MEDS: NORCO 7.5/325 1 TABLET PO (14:07)
[2024-02-26 16:07] VITALS: BP 134/66
[2024-02-26 17:29] VITALS: BMI 33.3
[2024-02-26 17:52] VITALS: BP 129/70
[2024-02-26] MEDS: LOVENOX 40 MG SC (18:16)
[2024-02-26 19:41] VITALS: BMI 33.6
[2024-02-26 19:45] VITALS: BP 149/82
[2024-02-26] MEDS: ROCEPHIN 1000 MG IV (21:41)
[2024-02-26] MEDS: STERILE WATER FOR INJECTION 10 ML IV (21:41)
[2024-02-26] MEDS: REFRESH CELLUVISC GEL 1 DROPS BOTH EYES (21:41)
[2024-02-26 23:20] VITALS: BP 145/79
[2024-02-27] VITALS (8 sets, daily range): BP systolic 130–160; BP diastolic 65–97; PULSE 92; O2SAT 92
--- NOTE | 2024-02-27 03:58 | PTCARENOTE ---
Patients oxygen saturation on 4L is 92-95% at rest. Patient walked to bathroom and back with 4L of oxygen. Patient oxygen saturation with exertion is 78-82%. Slowly increased over a 5 minute window back to baseline.
[2024-02-27] MEDS: ZYRTEC 10 MG PO (06:04)
[2024-02-27 06:47] LABS: Hematocrit 42.7 % (37.0-47.0); Hemoglobin 13.7 g/dL (12.0-16.0); Mean Corp Hgb Conc. 32.1 g/dL (33.0-37.0); Mean Corpuscular Volume 93.4 fL (81.0-99.0); Mean Platelet Volume 9.1 fL (7.4-10.4); Platelet Count 211 10^3/uL (130-400); Red Blood Cell Count 4.57 10^6/uL (4.20-5.40); Red Cell Dist. Width 12.5 % (11.5-14.5); White Blood Cell Count 5.8 10^3/uL (4.8-10.8)
[2024-02-27 07:26] LABS: Blood Urea Nitrogen 17 mg/dl (7-17); Chloride 93 mmol/L (98-107); Estimated Creatinine Clearance 118 ml/min; Glucose 117 mg/dl (70-99); Magnesium 2.2 mg/dl (1.6-2.3); Potassium 4.3 mmol/L (3.5-5.1); Sodium 141 mmol/L (135-145); eGFR > 60.00
[2024-02-27 07:37] LABS: Carbon Dioxide 37 mmol/L (22-30)
--- NOTE | 2024-02-27 07:53 | CON.PUL ---
Consultation
Consultation Request
Date/Time Consultation Requested: 02/27/2024-7:30 AM
Date/Time Consultation Performed: 02/27/2024-9 AM
Requesting Provider: Hospitalist
Performing Provider: Dr. Dasilva
Reason for Consultation: Shortness of breath
Medical History
-
Chief Complaint: Shortness of breath
History of Present Illness:
58-year-old female smoker with history of COPD followed by Dr. Quijano recently discharged from the hospital 09/24/23, presents with progressive shortness of breath, dyspnea, flulike illness noted to have flu and COPD exacerbation-pulmonary consulted
for COPD exacerbation/influenza 02/27/24.Patient states she is feeling somewhat improved. She continues to have some chest tightness, wheezing, productive cough, no pleurisy, abdominal pain, focal weakness or leg swelling.
Past Medical History
Past Medical History: None ( Hyperlipidemia. Diverticulosis. GERD. COPD. Colon polyp. Seasonal allergies. Salpingo-oophorectomy 2008. Right breast cancer surgery 2022.)
Social History
Tobacco: Smoker
Drug: None
Personal:
Living: With Family
Occupational Exposures: No known asbestos exposure
Environmental Exposures: No known tuberculosis exposure
Family History
Family History: Other ( Father-colon cancer and CAD. Mother-hyperlipidemia and stomach ulcers. Paternal grandfather-colon cancer. Paternal grandmother-colon cancer. Paternal grandfather-colon cancer and mesothelioma. Maternal grandmother,
colon cancer.)
Allergies / Home Medications
Allergies
Allergy/AdvReac Type Severity Reaction Status Date / Time
amoxicillin Allergy Unknown Verified 09/16/23 17:19
Home Medications
�Medication �Instructions �Recorded �Confirmed �Last Taken �Type
acetylcysteine 600 mg capsule (NAC) 600 mg PO BID Supplement 09/16/23 02/26/24 02/25/24 History
anastrozole 1 mg tablet 1 mg PO HS Cancer 09/16/23 02/26/24 02/24/24 History
carboxymethylcellulose sodium 0.5 20 drp BOTH EYES HS Eye Condition 09/16/23 02/26/24 02/24/24 History
% eye drops in a dropperette
(Refresh Plus)
cetirizine 10 mg tablet (Zyrtec) 10 mg PO DAILY Allergies 09/16/23 02/26/24 02/25/24 History
cholecalciferol (vitamin D3) 125 125 mcg PO SUMOTUWE@1800 Supplement 09/16/23 02/26/24 02/24/24 History
mcg (5,000 unit) tablet (Vitamin
D3)
cinnamon bark 500 mg capsule 500 mg PO DAILY Supplement ##0 09/16/23 02/26/24 02/25/24 History
(Cinnamon)
hydrocodone 7.5 mg-ibuprofen 200 1 tab PO DAILY Pain 09/16/23 02/26/24 02/24/24 History
mg tablet
quercetin 500 mg capsule 500 mg PO HS Supplement 09/16/23 02/26/24 02/24/24 History
zinc sulfate 50 mg zinc (220 mg) 50 mg PO HS Supplement 09/16/23 02/26/24 02/24/24 History
tablet
albuterol sulfate 1.25 mg/3 mL 1.25 mg inhalation R BID 02/25/24 02/26/24 02/25/24 History
solution for nebulization
albuterol sulfate 90 mcg/actuation 2 puff inhalation R Q6HPRN PRN 02/25/24 02/26/24 Unknown History
aerosol inhaler shortness of breath or wheezing
azithromycin 250 mg tablet 250 mg PO DAILY 02/25/24 02/26/24 02/25/24 History
budesonide 160 mcg-glycopyr 9 2 inh inhalation R BID 02/25/24 02/26/24 02/25/24 History
mcg-formot 4.8 mcg/actuation HFA
inhaler (Breztri Aerosphere)
cyanocobalamin (vitamin B-12) 1,000 mcg PO DAILY 02/25/24 02/26/24 02/25/24 History
1,000 mcg tablet
famotidine 20 mg tablet 20 mg PO DAILYPRN PRN heartburn 02/25/24 02/26/24 Unknown History
guaifenesin 1,200 mg tablet, 1,200 mg PO BID 02/25/24 02/26/24 02/25/24 History
extended release 12 hr
prednisone 20 mg tablet 10 mg PO .TAPER 02/25/24 02/26/24 02/25/24 History
Review of Systems
-
Unable to Obtain full review of systems at this time due to: Other (Per HPI)
Vitals / Labs / Diagnostic Testing
Vital Signs
Temp Pulse Resp BP Pulse Ox
99.3 F 69 16 160/82 92
02/27/24 07:45 02/27/24 07:45 02/27/24 07:45 02/27/24 07:45 02/27/24 07:45
Lab Data
02/27/24 06:16
02/27/24 06:16
Microbiology
02/25/24 16:10 Nasal Swab Influenza Types A & B (EUGENIO) - Final
Influenza A Positive, NAAT
Diagnostic Testing:
Physical Exam
-
Exam:
Well-nourished and well-developed in no apparent distress
HEENT-atraumatic, normocephalic
Neck-supple, no JVD, no bruit
Heart-regular rate and rhythm-no murmurs, rubs or gallops
No crackles
Back without tenderness
Abdomen-soft, nontender, nondistended, no hepatosplenomegaly
Extremities-no cyanosis, clubbing, edema and good peripheral pulses
Integument-intact, no rashes, lesions or ecchymosis
Neurology-alert and oriented, nonfocal motor and sensory exam
Assessment
-
58-year-old female smoker with history of COPD followed by Dr. Quijano recently discharged from the hospital 09/24/23, presents with progressive shortness of breath, dyspnea, flulike illness noted to have flu and COPD exacerbation-pulmonary consulted
for COPD exacerbation/influenza 02/27/24.
.
OOWJ-qim-dumsz Gold stage IV with acute exacerbation.
Influenza a
Recent right lower lobe community acquired pneumonia
Conditions present prior to admission:
Hyperlipidemia.
Diverticulosis.
GERD.
COPD-Near end-stage on 2 L oxygen
Colon polyp.
Seasonal allergies
Obesity.
Right breast cancer. .
Polycystic ovarian syndrome.
Chronic pain
Salpingo-oophorectomy 2008. Right breast cancer surgery 2022.
Plan
Respiratory decompensation from advanced underlying lung disease, ongoing smoking, recent viral infection and pneumonia, now with influenza.
Supplemental oxygen as needed.
Nebulizers.
Symbicort continues
Steroids-Prednisone 50 mg daily
Mucolytic
Mucus clearing devices.
Check cultures
Influenza positive
Tamiflu
Isolation/droplet precautions
Empiric antibiotics-ceftriaxone and azithromycin initiated.
Analgesia with chronic pain syndrome per primary service
Smoking cessation counseling
Nicotine Patch if needed.
DVT prophylaxis-on Lovenox.. Sliding nutrition.
Early mobilization.
Patient is primary caregiver to her ex- who is a double lung transplant for pulmonary fibrosis doing well Since [address]
Patient last saw Dr. Quijano 12/11/23 and has an appointment 03/12/24 at 9 AM
Diagnostic data:
CT chest 11/15/2023, reviewed Roberto Kitchen 12/11/2023 08:32:44 AM EDT >��������Marked interval improvement in multifocal pneumonia throughout the right lung, with only a few smallairspace/nodular opacities remaining. No new
infectious/inflammatory process.Stable mild upper lobe predominant centrilobular emphysema
CT chest 11/15/2023, reviewed Roberto Kitchen 12/11/2023 08:32:44 AM EDT >��������Marked interval improvement in multifocal pneumonia throughout the right lung, with only a few smallairspace/nodular opacities remaining. No new
infectious/inflammatory process.Stable mild upper lobe predominant centrilobular emphysema
Pulmonary function testing ( 12/11/2023� ):FEV1: 0.7 L-26% postbronchodilatorFVC:2.64 L-75%FEV1/FVC ratio:27%T.12 L-118%RV: 3.3 L-170%ERV:RV/TLC ratio:54%DLCO: 5.34-22%DLCO/VA: 20%.
6 minute walk testing: ( 12/10/2023 )Pulse ox at rest on room air:98%Lowest oxygen saturation:83% after 10 minutes.� Required 2 L of supplemental oxygen to maintain pulse ox 93%.Dyspnea scale: 2/10Heart rate at rest,84Maximum heart rate:107Walk
distance:918 feetOxygen requirements:2L
Data Reviewed
-
PFT: Report reviewed by me
EKG: Report reviewed by me
Radiology: Report reviewed by me
CT Scan: Image personally visualized and interpreted and Report reviewed by me
MRI: Report reviewed by me
Medical Tests (Nuc Med, Echo etc): Image personally visualized and interpreted
Labs: Labs reviewed by me and Discussed with Nurse
Old Records: Reviewed
Total Time Spent with Patient (in minutes): 65
[2024-02-27] MEDS: SYMBICORT 160/4.5 MCG INHALER 2 PUFF INH ×2 (08:00→20:12)
[2024-02-27] MEDS: DUONEB 3 ML INH ×4 (08:00→20:12)
--- NOTE | 2024-02-27 09:09 | RESPNOTE ---
Pt having increased SOB when walking to and from the bathroom. Pt's pulse ox was taken in the BR. Pt's sat was 67% on 4L. HR-104. RR-24. NC liter flow increased to 6L. Pt was instructed to take slow deep breaths. Pt's oxygen slowly improved to 92%
on 6L. Pts bedside. Pt instructed to use bedside commode to help decrease SOB episodes during ambulation. RN notified of changes.
[2024-02-27] MEDS: DELTASONE 50 MG PO (09:54)
[2024-02-27] MEDS: TAMIFLU 75 MG PO ×2 (09:54→19:49)
[2024-02-27] MEDS: NORCO 7.5/325 1 TABLET PO (09:55)
[2024-02-27] MEDS: MUCINEX 1200 MG PO ×2 (09:55→19:49)
[2024-02-27] MEDS: ZITHROMAX 250 MG PO (09:55)
--- NOTE | 2024-02-27 11:07 | W.PN.HOSP.TC ---
Today's Communication/Plan
-
c/w Neb
c/w Tamiflu
c/w steroid
f/w pulmonary recommendations
Assessment / Plan
Assessment / Plan
Physical Exam
General: Not in acute distress
HEENT: Normocephalic
Respiratory: Decreased Breath Sounds Bilaterally
Cardiac: S1/S2 and Regular Rhythm
GI: Soft, Non Tender, Non Distended and Normal Bowel Sounds
Musculoskeletal: No Cyanosis and No Edema
Skin: Warm
Neuro: Nonfocal/grossly intact
Psych: Calm
Assessment/Plan
58 y/o female with past medical history of COPD on 2 L home O2 as needed presented with hypoxia, dyspnea on exertion and fevers. Found to have influenza (symptoms began about 4 days before presentation) and a right middle lobe hazy opacity. She had
significant oxygen requirement saturating 95% on 4 L.
#Influenza A- Influenza with marked hypoxia in patient with COPD and smoking.
c/w viral pneumonia
- No PE on CT Chest
- Tamiflu 75 bid
- ceftriaxone/azithromycin
- DuoNeb RTC and prn
- prednisone 50 mg daily -- taper the prednisone based on clinical improvement
- continue her home ICS/LABA/LAMA
- supportive care
- continue monitoring on telemetry
- Per patient request, consulted pulmonary
- Patient strongly requested to continue her home [place] despite concerns it can possibly negatively affect her COPD -- continued [place]
#History of Right lower lobe pneumonia, community-acquired.
#History of acute hypoxic respiratory insufficiency secondary to above
#Endometriosis status post tubo-ovarian surgery
#Polycystic ovary syndrome
-Resume Anastrazole tomorrow night (night of 02/27/24), as per patient request
#Chronic pain requiring opiate administration
add PRN dose also
#Tobacco use disorder, ongoing.
DVT Prophylaxis: Lovenox subq
Code Status: Full code
Total time spent to see the patient, examine the patient, review data and lab results, discuss treatment plan with patient, nursing staff around 55 minutes
Anticipated Discharge: > 48 hours
Subjective/Interval History
-
Date of Service: February 27, 2024
She feels sob and not improving
Objective Data
-
Labs:
Laboratory Results
02/27/24
06:16
WBC 5.8
Hgb 13.7
Hct 42.7
Plt Count 211
Sodium 141
Potassium 4.3
Chloride 93 L
Carbon Dioxide 37 H
BUN 17
Creatinine 0.5 L
Glucose 117 H
Calcium 9.0
Vital Signs:
Vital Signs
Temp Pulse Resp BP Pulse Ox
99.3 F 112 20 160/82 92
02/27/24 07:45 02/27/24 08:09 02/27/24 08:09 02/27/24 07:45 02/27/24 09:12
I&O
02/26/24 02/27/24 02/28/24
06:59 06:59 06:59
Intake Total 480 / 480
Balance 480 / 480
--- NOTE | 2024-02-27 11:13 | CM ---
Addendum entered by Iris Tenorio RN 02/27/24 11:18:
CM consult received for Advanced Directives. Advanced Directives packet provided to the patient.
Original Note:
Reviewed the chart notes and spoke with the patient at the bedside. The patient is admitted for Flu. The patient has a history of COPD. The patient resides with her spouse in a two story home with two steps to enter. The patient reports only DME
in home is a nebulizer and O2 through [employer]. Patient reports no VN or SNF in the past. The patient confirmed her pharmacy of choice is the [facility] and PCP is Dr. Haro. CM continues to be available to patient/family and is
monitoring medical plan for needs at discharge.
Plan: Discharge plans will depend on the patient's progress.
--- NOTE | 2024-02-27 14:04 | PN.CDI ---
Addendum entered and electronically signed by Johana Dupont MD 02/27/24 14:25:
Acute Hypoxic respiratory failure -Still being monitored /treated
Original Note:
CDI
- -
CDI:
Physician Documentation Request
Admit Date: 02/25/24 21:36
Dear Doctor Kiah,
Please review the following and provide your response in the progress notes.
Clinical Indicators:
Pt admitted with Influenza A/Viral PNA/COPD exacerbation
Documented per ED, ' Typically requires nocturnal oxygen therapy but none during the day, has noted room air saturations below 80% routinely throughout the past 24 to 48 hours....Tachypneic on supplemental oxygen while at rest....grossly diminished
breath sounds ...Acute hypoxemic respiratory failure....'
Pt care note 02/26 @0358, ' Patients oxygen saturation on 4L is 92-95% at rest. Patient walked to bathroom and back with 4L of oxygen. Patient oxygen saturation with exertion is 78-82%. Slowly increased over a 5 minute window back to baseline. ...'
Respiratory Care note 02/26, ' Pt having increased SOB when walking to and from the bathroom. Pt's pulse ox was taken in the BR. Pt's sat was 67% on 4L. HR-104. RR-24. NC liter flow increased to 6L. Pt was instructed to take slow deep breaths. Pt's
oxygen slowly improved to 92% on 6L. ...'
Respirations 32, HR 125
Please update the status of Acute Hypoxic respiratory Failure documented in ED:
Acute Hypoxic respiratory failure -Still being monitored /treated
Acute Hypoxic Respiratory Failure - Ruled out
Other ( please specify)
Additional information for Respiratory Failure:
Recognized criteria for Respiratory Failure (Source: ACP Hospitalist Nov/Dec 2012)
ABGs: (1 or more) Symptoms Please indicate type if known
1. p)2 <60 or RA SPO2 <91% on RA 1. Tachypnea, SOB, dyspnea Hypoxic
2. pCO2 50 and pH <7.35 2. Use of accessory muscles Hypercapnic
3. pO2 decrease of pCO2 increase by 3. Pallor or cyanosis Hypoxic and Hypercapnic
10 mmHg from baseline if known 4. Anxiety or restlessness Unable to determine
5. Unable to speak in full sentences
Supplemental O2 of > 40% (5LPM) Intubation is not required
Use of terms such as suspected, likely, concern for, or probable (associated with a specific diagnosis that is being evaluated, monitored, or treated as if it exists) are acceptable and can be coded in the inpatient setting, when documented at the
time of discharge.
Thank you,
Princess Nicolas RN
CDI Specialist
[place] [facility]
Please use your independent medical judgment in providing your response.
--- NOTE | 2024-02-27 14:14 | PN.CDI ---
Addendum entered and electronically signed by Johana Dupont MD 02/27/24 14:27:
Viral Sepsis-POA
with tachypnea, tachycardia, low grade temp at 99.3
Original Note:
CDI
- -
CDI:
Physician Documentation Request
Admit Date: 02/25/24 21:36
Dear Doctor Kiah,
Please review the following and provide your response in the progress notes.
Clinical Indicators:
Pt admitted with Influenza A/Viral PNA/COPD exacerbation
Documented per ED, ' URI symptoms and SOB. C/o cough and fevers... Mildly tachycardic....Tachypneic on supplemental oxygen while at rest...'
On admission HR 109, Respirations 32
Please clarify which of the following most accurately describes the status of the patient's infection:
Viral Sepsis-POA
- Systemic manifestations of infection, with 2 or more SIRS criteria which include:
- Fever >100.4 degrees F or hypothermia < 96.8 degrees F
- Leukocytosis - WBC > 12,000 or leukopenia - WBC < 4,000 or > 10% bands
- Tachycardia > 90 beats per minute
- Tachypnea - RR > 20 breaths per minute or PaCO2 , 32mmHg
Source: Merck Manual 2013
Influenza A with Viral PNA only , Without Systemic Illness
Other ( please specify)
Use of terms such as suspected, likely, concern for, or probable (associated with a specific diagnosis that is being evaluated, monitored, or treated as if it exists) are acceptable and can be coded in the inpatient setting, when documented at the
time of discharge.
Thank you,
Princess Nicolas RN
CDI Specialist
[place] [facility]
Please use your independent medical judgment in providing your response.
--- NOTE | 2024-02-27 14:19 | PN.CDI ---
Addendum entered and electronically signed by Johana Dupont MD 02/27/24 14:28:
Opioid dependence, continuous/daily use.
Original Note:
CDI
- -
CDI:
Physician Documentation Request
Admit Date: 02/25/24 21:36
Dear Doctor Kiah,
Please review the following and provide your response in the progress notes.
Clinical Indicators:
Pt admitted with Influenza A/Viral PNA/COPD exacerbation
Progress notes 02/25&02/26, ' Chronic pain requiring opiate administration..'
Progress note 02/26, ' #Chronic pain requiring opiate administration add PRN dose also...'
Per MAR hydrocodone 7.5 mg-ibuprofen 200 mg tablet 1 tab PO DAILY Pain
Pt home medications includes Oxycodone. Please clarify if there is a diagnosis associated with the above medication usage.
Opioid dependence, continuous/daily use.
Opioid dependence, intermittent/not daily use
Other ( please specify)
Use of terms such as suspected, likely, concern for, or probable (associated with a specific diagnosis that is being evaluated, monitored, or treated as if it exists) are acceptable and can be coded in the inpatient setting, when documented at the
time of discharge.
Thank you,
Princess Nicolas RN
CDI Specialist
[place] [facility]
Please use your independent medical judgment in providing your response.
[2024-02-27] MEDS: LOVENOX 40 MG SC (17:46)
[2024-02-27] MEDS: STERILE WATER FOR INJECTION 10 ML IV (21:47)
[2024-02-27] MEDS: ROCEPHIN 1000 MG IV (21:47)
[2024-02-27] MEDS: REFRESH CELLUVISC GEL 1 DROPS BOTH EYES (21:47)
[2024-02-27] MEDS: ARIMIDEX 1 MG PO (21:48)
[2024-02-27] MEDS: MELATONIN 5 MG PO (21:49)
[2024-02-28] MEDS: TYLENOL 650 MG PO (02:42)
[2024-02-28 02:52] VITALS: BP 131/82
[2024-02-28] MEDS: ZYRTEC PO (06:26)
[2024-02-28 07:17] LABS: Hematocrit 41.2 % (37.0-47.0); Hemoglobin 13.1 g/dL (12.0-16.0); Mean Corp Hgb Conc. 31.8 g/dL (33.0-37.0); Mean Corpuscular Hgb 29.5 pg (27.0-31.0); Mean Corpuscular Volume 92.8 fL (81.0-99.0); Mean Platelet Volume 9.1 fL (7.4-10.4); Platelet Count 193 10^3/uL (130-400); Red Blood Cell Count 4.44 10^6/uL (4.20-5.40); Red Cell Dist. Width 12.3 % (11.5-14.5); White Blood Cell Count 4.7 10^3/uL (4.8-10.8)
[2024-02-28] MEDS: SYMBICORT 160/4.5 MCG INHALER 2 PUFF INH ×2 (07:32→19:57)
[2024-02-28] MEDS: DUONEB 3 ML INH ×3 (07:32→15:20)
[2024-02-28 07:42] LABS: Blood Urea Nitrogen 11 mg/dl (7-17); Calcium 8.6 mg/dl (8.4-10.2); Chloride 92 mmol/L (98-107); Estimated Creatinine Clearance 118 ml/min; Glucose 101 mg/dl (70-99); Potassium 4.2 mmol/L (3.5-5.1); Sodium 140 mmol/L (135-145); eGFR > 60.00
[2024-02-28 07:55] VITALS: BP 145/69
[2024-02-28 07:56] LABS: Carbon Dioxide 37 mmol/L (22-30)
[2024-02-28] MEDS: DELTASONE 50 MG PO (09:25)
[2024-02-28] MEDS: ZITHROMAX 250 MG PO (09:25)
[2024-02-28] MEDS: NORCO 7.5/325 1 TABLET PO (09:25)
[2024-02-28] MEDS: TAMIFLU 75 MG PO ×2 (09:26→20:35)
[2024-02-28] MEDS: MUCINEX 1200 MG PO ×2 (09:26→20:34)
--- NOTE | 2024-02-28 09:44 | W.PN.HOSP.TC ---
Today's Communication/Plan
-
Likely dc in am
Start tapering prednisone
Home O2 today
Assessment / Plan
Assessment / Plan
Physical Exam
General: Not in acute distress
HEENT: Normocephalic
Respiratory: Decreased Breath Sounds Bilaterally
Cardiac: S1/S2 and Regular Rhythm
GI: Soft, Non Tender, Non Distended and Normal Bowel Sounds
Musculoskeletal: No Cyanosis and No Edema
Skin: Warm
Neuro: Nonfocal/grossly intact
Psych: Calm
Assessment/Plan
58 y/o female with past medical history of COPD on 2 L home O2 as needed presented with hypoxia, dyspnea on exertion and fevers. Found to have influenza (symptoms began about 4 days before presentation) and a right middle lobe hazy opacity. She had
significant oxygen requirement saturating 95% on 4 L.
#Influenza A- Influenza with marked hypoxia in patient with COPD and smoking.
c/w viral pneumonia
- No PE on CT Chest
- Tamiflu 75 bid
- ceftriaxone/azithromycin
- DuoNeb RTC and prn
- prednisone 50 mg daily -- taper the prednisone based on clinical improvement
- continue her home ICS/LABA/LAMA
- supportive care
- continue monitoring on telemetry
-- Appreciate pulmonary help
- Patient strongly requested to continue her home [place] despite concerns it can possibly negatively affect her COPD -- continued [place]
#History of Right lower lobe pneumonia, community-acquired.
#History of acute hypoxic respiratory insufficiency secondary to above
#Endometriosis status post tubo-ovarian surgery
#Polycystic ovary syndrome
-Resume Anastrazole (night of 02/27/24), as per patient request
#Chronic pain requiring opiate administration
add PRN dose also
#Tobacco use disorder, ongoing.
DVT Prophylaxis: Lovenox subq
Code Status: Full code
Total time spent to see the patient, examine the patient, review data and lab results, discuss treatment plan with patient, nursing staff around 55 minutes
Anticipated Discharge: Within 24 hours
Subjective/Interval History
-
Date of Service: February 28, 2024
She feels better
No chest pain
Less sob
Objective Data
-
Labs:
Laboratory Results
02/28/24
07:01
WBC 4.7 L
Hgb 13.1
Hct 41.2
Plt Count 193
Sodium 140
Potassium 4.2
Chloride 92 L
Carbon Dioxide 37 H
BUN 11
Creatinine 0.5 L
Glucose 101 H
Calcium 8.6
Vital Signs:
Vital Signs
Temp Pulse Resp BP Pulse Ox
98.6 F 93 16 145/69 95
02/28/24 07:55 02/28/24 07:55 02/28/24 07:55 02/28/24 07:55 02/28/24 09:32
I&O
02/27/24 02/28/24 02/29/24
06:59 06:59 06:59
Intake Total 480 / 480 1140 / 1140
Balance 480 / 480 1140 / 1140
--- NOTE | 2024-02-28 10:19 | W.PN.PUL.V3 ---
Today's Communication / Plan
-
Wean oxygen
Increase activity
Tamiflu
Antibiotics
Nebulizers and mucolytic's
No change in prednisone
Assessment
-
58-year-old female smoker with history of COPD followed by Dr. Quijano recently discharged from the hospital 09/24/23, presents with progressive shortness of breath, dyspnea, flulike illness noted to have flu and COPD exacerbation-pulmonary consulted
for COPD exacerbation/influenza 02/27/24.
.
ZBEN-uyv-zchni Gold stage IV with acute exacerbation.
Influenza a
Recent right lower lobe community acquired pneumonia
Conditions present prior to admission:
Hyperlipidemia.
Diverticulosis.
GERD.
COPD-Near end-stage on 2 L oxygen
Colon polyp.
Seasonal allergies
Obesity.
Right breast cancer. .
Polycystic ovarian syndrome.
Chronic pain
Salpingo-oophorectomy 2008. Right breast cancer surgery 2022.
Plan
Respiratory decompensation from advanced underlying lung disease, ongoing smoking, recent viral infection and pneumonia, now with influenza.
Supplemental oxygen as needed-currently on 5 L - 95% saturation
DuoNebs 4 times daily
Symbicort 160/4.5 continues
Prednisone 40 mg daily
Mucolytic
Mucus clearing devices.
Reviewed CT chest findings with patient-emphysema, mild right-sided infiltrate, and no evidence for 'fibrosis' which is when she was worried about
Cultures reviewed
Influenza positive
Tamiflu
Isolation/droplet precautions
Empiric antibiotics-ceftriaxone and azithromycin initiated.
Analgesia with chronic pain syndrome per primary service
Smoking cessation counseling
Nicotine Patch if needed.
DVT prophylaxis-on Lovenox.. Sliding nutrition.
Early mobilization
Patient is primary caregiver to her ex- who is a double lung transplant for pulmonary fibrosis doing well Since 2015
Explained advanced emphysema on objective testing-near end-stage emphysema
Patient last saw Dr. Quijano 12/11/23 and has an appointment 03/12/24 at 9 AM
Diagnostic data:
CT chest 11/15/2023, reviewed Roberto Kitchen 12/11/2023 08:32:44 AM EDT >��������Marked interval improvement in multifocal pneumonia throughout the right lung, with only a few smallairspace/nodular opacities remaining. No new
infectious/inflammatory process.Stable mild upper lobe predominant centrilobular emphysema
CT chest 11/15/2023, reviewed Roberto Kitchen 12/11/2023 08:32:44 AM EDT >��������Marked interval improvement in multifocal pneumonia throughout the right lung, with only a few smallairspace/nodular opacities remaining. No new
infectious/inflammatory process.Stable mild upper lobe predominant centrilobular emphysema
Pulmonary function testing ( 12/11/2023� ):FEV1: 0.7 L-26% postbronchodilatorFVC:2.64 L-75%FEV1/FVC ratio:27%T.12 L-118%RV: 3.3 L-170%ERV:RV/TLC ratio:54%DLCO: 5.34-22%DLCO/VA: 20%.
6 minute walk testing: ( 12/10/2023 )Pulse ox at rest on room air:98%Lowest oxygen saturation:83% after 10 minutes.� Required 2 L of supplemental oxygen to maintain pulse ox 93%.Dyspnea scale: 2/10Heart rate at rest,84Maximum heart rate:107Walk
distance:918 feetOxygen requirements:2L
Subjective Data
-
Date of Service:
Date of Service: February 28, 2024
Chief Complaint: Pulmonary Follow Up, Dyspnea Follow Up and Pneumonia Follow Up
Subjective:
Still quite short of breath with minimal exertion, still has some wheezing, nonproductive cough, no chest pain or abdominal pain
Review of Systems
General: Other (Per HPI)
Objective Data
Data Reviewed
Vital Signs / I&O:
Vital Signs
Temp Pulse Resp BP Pulse Ox
98.6 F 93 16 145/69 95
02/28/24 07:55 02/28/24 07:55 02/28/24 07:55 02/28/24 07:55 02/28/24 09:32
Intake and Output
02/27/24 02/28/24 02/29/24
06:59 06:59 06:59
Intake Total 480 / 480 1140 / 1140
Balance 480 / 480 1140 / 1140
SaO2: 95
Nasal Cannula flow liters per minute: 3
Physical Exam
General: Respiratory Distress (n) and Comfortable
HEENT: Normocephalic, Anicteric and Moist Mucous Membranes
Cardiovascular: Regular Rhythm
Respiratory: Clear (Diminished breath sounds, prolonged expiratory time), Wheeze (Expiratory), Crackles (n), Rhonchi (n), Non-Labored Respirations, Accessory Resp Muscle Use (n) and Stridor (n)
GI: Soft, Non Distended and Non Tender
Neurology: Awake, Alert and No Motor Deficits
Skin: Warm, Good Color, Cyanosis (n), Jaundice (n) and Rash (n)
Labs/Micro/Reports
Lab Data
02/28/24 07:01
02/28/24 07:01
Microbiology
02/25/24 16:10 Nasal Swab Influenza Types A & B (EUGENIO) - Final
Influenza A Positive, NAAT
[2024-02-28 11:28] VITALS: BP 127/61
--- NOTE | 2024-02-28 14:45 | CM ---
Reviewed the chart notes. Per PT, no skilled need. CM continues to be available to patient/family and is monitoring medical plan for needs at discharge.
Plan: Discharge to home when medically stable. No needs anticipated.
[2024-02-28 15:45] VITALS: BP 127/74
[2024-02-28] MEDS: MORPHINE SULFATE 2 MG IV (16:56)
[2024-02-28] MEDS: LOVENOX 40 MG SC (18:09)
[2024-02-28 19:44] VITALS: BP 139/63
[2024-02-28] MEDS: DUONEB INH ×2 (19:57→20:05)
[2024-02-28] MEDS: ARIMIDEX 1 MG PO (21:57)
[2024-02-28] MEDS: MELATONIN 5 MG PO (21:57)
[2024-02-28] MEDS: STERILE WATER FOR INJECTION 10 ML IV (21:57)
[2024-02-28] MEDS: REFRESH CELLUVISC GEL 1 DROPS BOTH EYES (21:57)
[2024-02-28] MEDS: FLUSH (NSS) 2 FLUSH IV (21:58)
[2024-02-28] MEDS: ROCEPHIN 1000 MG IV (21:58)
[2024-02-28 23:29] VITALS: BP 138/76
[2024-02-29 03:39] VITALS: BP 143/77
[2024-02-29] MEDS: ZYRTEC 10 MG PO (05:04)
[2024-02-29 06:48] LABS: Hematocrit 39.3 % (37.0-47.0); Hemoglobin 12.7 g/dL (12.0-16.0); Mean Corp Hgb Conc. 32.3 g/dL (33.0-37.0); Mean Corpuscular Hgb 29.7 pg (27.0-31.0); Mean Corpuscular Volume 91.8 fL (81.0-99.0); Mean Platelet Volume 9.4 fL (7.4-10.4); Platelet Count 205 10^3/uL (130-400); Red Blood Cell Count 4.28 10^6/uL (4.20-5.40); Red Cell Dist. Width 12.5 % (11.5-14.5); White Blood Cell Count 5.7 10^3/uL (4.8-10.8)
[2024-02-29 07:17] LABS: Blood Urea Nitrogen 15 mg/dl (7-17); Chloride 94 mmol/L (98-107); Estimated Creatinine Clearance 118 ml/min; Glucose 96 mg/dl (70-99); Potassium 3.8 mmol/L (3.5-5.1); Sodium 139 mmol/L (135-145); eGFR > 60.00
[2024-02-29 07:25] VITALS: BP 116/66
[2024-02-29] MEDS: SYMBICORT 160/4.5 MCG INHALER 2 PUFF INH ×2 (07:35→18:23)
[2024-02-29] MEDS: DUONEB INH (07:36)
[2024-02-29] MEDS: XOPENEX 0.63 MG INHALANT SOLUTION INH ×3 (07:44→18:22)
[2024-02-29 07:48] LABS: Carbon Dioxide 38 mmol/L (22-30)
[2024-02-29] MEDS: MUCINEX 1200 MG PO ×2 (10:10→19:48)
[2024-02-29] MEDS: DELTASONE 40 MG PO (10:10)
[2024-02-29] MEDS: NORCO 7.5/325 1 TABLET PO (10:10)
[2024-02-29] MEDS: TAMIFLU 75 MG PO ×2 (10:18→19:48)
[2024-02-29] MEDS: ZITHROMAX 250 MG PO (10:18)
--- NOTE | 2024-02-29 10:28 | W.PN.HOSP.TC ---
Today's Communication/Plan
-
Hope we dc on Saturday or Saturday depending on clinical improvement
PRN IV morphine is added
Assessment / Plan
Assessment / Plan
Physical Exam
General: Not in acute distress
HEENT: Normocephalic
Respiratory: Decreased Breath Sounds Bilaterally
Cardiac: S1/S2 and Regular Rhythm
GI: Soft, Non Tender, Non Distended and Normal Bowel Sounds
Musculoskeletal: No Cyanosis and No Edema
Skin: Warm
Neuro: Nonfocal/grossly intact
Psych: Calm
Assessment/Plan
58 y/o female with past medical history of COPD on 2 L home O2 as needed presented with hypoxia, dyspnea on exertion and fevers. Found to have influenza (symptoms began about 4 days before presentation) and a right middle lobe hazy opacity. She had
significant oxygen requirement saturating 95% on 4 L.
#Influenza A- Influenza with marked hypoxia in patient with COPD and smoking.
c/w viral pneumonia
- No PE on CT Chest
- Tamiflu 75 bid # 4
- ceftriaxone/azithromycin
- s/p DuoNeb RTC and prn, changed to Xopenex due to distress experienced after Duo Neb
- prednisone 50 mg daily -- taper the prednisone based on clinical improvement
- continue her home ICS/LABA/LAMA
- supportive care
- continue monitoring on telemetry
- Added PRN low dose iV Morphine for distress/ anxiety
-- Appreciate pulmonary help
#History of Right lower lobe pneumonia, community-acquired.
#Acute on chronic hypoxic respiratory failure
Currently she is requiring O2 ATC, she was using it at home at night /exertion/walking
#Endometriosis status post tubo-ovarian surgery
#Polycystic ovary syndrome
-Resumed Anastrazole (night of 02/27/24), as per patient request
#Chronic pain requiring opiate administration
added PRN dose of IV morphine also
#Tobacco use disorder, ongoing.
DVT Prophylaxis: Lovenox subq
Code Status: Full code
Total time spent to see the patient, examine the patient, review data and lab results, discuss treatment plan with patient, nursing staff around 55 minutes
Anticipated Discharge: Within 24 hours
Subjective/Interval History
-
Date of Service: February 29, 2024
Feels sob but not worsening
Neb causes distress
Morphine helped to breathe and sleep
Objective Data
-
Labs:
Laboratory Results
02/29/24
05:34
WBC 5.7
Hgb 12.7
Hct 39.3
Plt Count 205
Sodium 139
Potassium 3.8
Chloride 94 L
Carbon Dioxide 38 H
BUN 15
Creatinine 0.6
Glucose 96
Calcium 9.0
Vital Signs:
Vital Signs
Temp Pulse Resp BP Pulse Ox
98.6 F 93 18 116/66 93
02/29/24 07:25 02/29/24 07:45 02/29/24 07:45 02/29/24 07:25 02/29/24 07:45
I&O
02/28/24 02/29/24 03/01/24
06:59 06:59 06:59
Intake Total 1140 / 1140 360 / 360
Balance 1140 / 1140 360 / 360
[2024-02-29 11:10] VITALS: BP 109/52
--- NOTE | 2024-02-29 14:56 | W.PN.PUL3 ---
Today's Communication / Plan
-
Remains on 5L with desat with ambulation, she may require O2 moving forward at home
She has POC at home, we discussed using it and evaluating again as OP
Prednisone course noted, taper at discharge
OP FU would be completed post discharge
Defer to team on timing
Assessment
-
58-year-old female smoker with history of COPD followed by Dr. Quijano recently discharged from the hospital 09/24/23, presents with progressive shortness of breath, dyspnea, flulike illness noted to have flu and COPD exacerbation-pulmonary consulted
for COPD exacerbation/influenza 02/27/24.
.
HHQQ-mic-dasle Gold stage IV with acute exacerbation.
Influenza a
Recent right lower lobe community acquired pneumonia
Conditions present prior to admission:
Hyperlipidemia.
Diverticulosis.
GERD.
COPD-Near end-stage on 2 L oxygen
Colon polyp.
Seasonal allergies
Obesity.
Right breast cancer. .
Polycystic ovarian syndrome.
Chronic pain
Salpingo-oophorectomy 2008. Right breast cancer surgery 2022.
Plan
Respiratory decompensation from advanced underlying lung disease, ongoing smoking, recent viral infection and pneumonia, now with influenza.
Supplemental oxygen as needed-currently on 5 L - 95% saturation
Weaned to 4L now 93%--still desats with minimal exertion
Will order IS
High chance she would need some level of O2 at home, but she has POC/concentrator at home
DuoNebs 4 times daily
Symbicort 160/4.5 continues
Prednisone 40 mg daily
Mucolytic
Mucus clearing devices.
Reviewed CT chest findings with patient-emphysema, mild right-sided infiltrate, and no evidence for 'fibrosis' which is when she was worried about
Cultures reviewed
Influenza positive
Tamiflu
Isolation/droplet precautions
Empiric antibiotics-ceftriaxone and azithromycin initiated.
Analgesia with chronic pain syndrome per primary service
Smoking cessation counseling
Nicotine Patch if needed.
DVT prophylaxis-on Lovenox.. Sliding nutrition.
Early mobilization
Patient is primary caregiver to her ex- who is a double lung transplant for pulmonary fibrosis doing well Since 2016
Explained advanced emphysema on objective testing-near end-stage emphysema
Patient last saw Dr. Quijano 12/11/23 and has an appointment 03/12/24 at 9 AM
Diagnostic data:
CT chest 11/15/2023, reviewed Roberto Kitchen 12/11/2023 08:32:44 AM EDT >��������Marked interval improvement in multifocal pneumonia throughout the right lung, with only a few small airspace/nodular opacities remaining. No new
infectious/inflammatory process.Stable mild upper lobe predominant centrilobular emphysema
Pulmonary function testing ( 12/11/2023� ):FEV1: 0.7 L-26% postbronchodilator FVC:2.64 L-75%FEV1/FVC ratio:27%T.12 L-118%RV: 3.3 L-170%ERV:RV/TLC ratio:54%DLCO: 5.34-22%DLCO/VA: 20%.
6 minute walk testing: ( 12/10/2023 )Pulse ox at rest on room air:98%Lowest oxygen saturation:83% after 10 minutes.� Required 2 L of supplemental oxygen to maintain pulse ox 93%.Dyspnea scale: 2/10Heart rate at rest,84Maximum heart rate:107Walk
distance:918 feet Oxygen requirements:2L
Subjective Data
-
Date of Service:
Date of Service: February 29, 2024
Chief Complaint: Pulmonary Follow Up, Dyspnea Follow Up and Pneumonia Follow Up
Subjective:
Still desaturating with exertion, remains on 5L NC
Was using 2L PRN at home
Objective Data
Data Reviewed
Vital Signs / I&O / Oxygen:
Vital Signs
Temp Pulse Resp BP Pulse Ox
99.0 F 92 18 109/52 93
02/29/24 11:10 02/29/24 13:27 02/29/24 13:27 02/29/24 11:10 02/29/24 13:27
Intake and Output
02/28/24 02/29/24 03/01/24
06:59 06:59 06:59
Intake Total 1140 / 1140 360 / 360
Balance 1140 / 1140 360 / 360
SaO2 93
Nasal Cannula flow liters per 4
minute
Physical Exam
General: Respiratory Distress (n) and Comfortable
HEENT: Normocephalic, Anicteric and Moist Mucous Membranes
Cardiovascular: Regular Rhythm
Respiratory: Clear (Diminished breath sounds, prolonged expiratory time), Crackles (n), Rhonchi (n), Non-Labored Respirations, Accessory Resp Muscle Use (n) and Stridor (n)
GI: Soft, Non Distended and Non Tender
Neurology: Awake, Alert, Oriented and No Motor Deficits
Skin: Warm, Good Color, Cyanosis (n), Jaundice (n) and Rash (n)
Labs/Micro/Reports
Lab Data
02/29/24 05:34
02/29/24 05:34
[2024-02-29 15:25] VITALS: BP 165/85
[2024-02-29] MEDS: LOVENOX 40 MG SC (17:44)
[2024-02-29 19:27] VITALS: BP 151/92
[2024-02-29] MEDS: MORPHINE SULFATE 2 MG IV (20:07)
[2024-02-29] MEDS: FLUSH (NSS) 2 FLUSH IV ×2 (20:08→21:35)
[2024-02-29] MEDS: REFRESH CELLUVISC GEL 1 DROPS BOTH EYES (21:33)
[2024-02-29] MEDS: ARIMIDEX 1 MG PO (21:33)
[2024-02-29] MEDS: MELATONIN 5 MG PO (21:33)
[2024-02-29] MEDS: ROCEPHIN 1000 MG IV (21:33)
[2024-02-29] MEDS: STERILE WATER FOR INJECTION 10 ML IV (21:34)
[2024-02-29 23:17] VITALS: BP 137/78
[2024-03-01 03:02] VITALS: BP 134/80
[2024-03-01] MEDS: ZYRTEC 10 MG PO (05:53)
[2024-03-01 07:29] VITALS: BP 146/83
[2024-03-01] MEDS: SYMBICORT 160/4.5 MCG INHALER 2 PUFF INH ×2 (07:39→20:44)
[2024-03-01] MEDS: XOPENEX 0.63 MG INHALANT SOLUTION INH ×3 (07:39→20:44)
[2024-03-01] MEDS: MUCINEX 1200 MG PO ×2 (09:27→21:46)
[2024-03-01] MEDS: DELTASONE 40 MG PO (09:28)
[2024-03-01] MEDS: NORCO 7.5/325 1 TABLET PO (09:28)
[2024-03-01] MEDS: ZITHROMAX 250 MG PO (09:34)
[2024-03-01] MEDS: TAMIFLU 75 MG PO (09:34)
--- NOTE | 2024-03-01 09:48 | W.PN.HOSP.TC ---
Today's Communication/Plan
-
Discharge in pending clinical improvement
Assessment / Plan
Assessment / Plan
Physical Exam
General: Not in acute distress
HEENT: Normocephalic
Respiratory: Decreased Breath Sounds Bilaterally
Cardiac: S1/S2 and Regular Rhythm
GI: Soft, Non Tender, Non Distended and Normal Bowel Sounds
Musculoskeletal: No Cyanosis and No Edema
Skin: Warm
Neuro: Nonfocal/grossly intact
Psych: Calm
Assessment/Plan
58 y/o female with past medical history of COPD on 2 L home O2 as needed presented with hypoxia, dyspnea on exertion and fevers. Found to have influenza (symptoms began about 4 days before presentation) and a right middle lobe hazy opacity. She had
significant oxygen requirement saturating 95% on 4 L.
#Influenza A- Influenza with marked hypoxia in patient with COPD and smoking.
c/w viral pneumonia
- No PE on CT Chest
- Tamiflu 75 bid # 4
- ceftriaxone/azithromycin
- s/p DuoNeb RTC and prn, changed to Xopenex due to distress experienced after Duo Neb
- prednisone 50 mg daily -- taper the prednisone based on clinical improvement
- continue her home ICS/LABA/LAMA, changed to Xopenex
- supportive care
- continue monitoring on telemetry
- Added PRN low dose IV Morphine for distress/ anxiety
-- Appreciate pulmonary help
#History of Right lower lobe pneumonia, community-acquired.
#Acute on chronic hypoxic respiratory failure
Currently she is requiring O2 ATC, she was using it at home at night /exertion/walking
#Endometriosis status post tubo-ovarian surgery
#Polycystic ovary syndrome
-Resumed Anastrazole (night of 02/27/24), as per patient request
#Chronic pain requiring opiate administration
added PRN dose of IV morphine also
#Tobacco use disorder, ongoing.
DVT Prophylaxis: Lovenox subq
Code Status: Full code
Total time spent to see the patient, examine the patient, review data and lab results, discuss treatment plan with patient, nursing staff around 55 minutes
Anticipated Discharge: Within 24 hours
Subjective/Interval History
-
Date of Service: March 01, 2024
No sob
No chest pain
Still sob
Objective Data
-
Vital Signs:
Vital Signs
Temp Pulse Resp BP Pulse Ox
98.5 F 99 22 146/83 91
03/01/24 07:29 03/01/24 07:50 03/01/24 07:50 03/01/24 07:29 03/01/24 07:50
I&O
02/29/24 03/01/24 03/02/24
06:59 06:59 06:59
Intake Total 360 / 360 1959
Balance 360 / 360 1959
[2024-03-01 11:10] VITALS: BP 142/86
--- NOTE | 2024-03-01 14:00 | PTCARENOTE ---
Enc pt this am to try to attempt to increase her ambulation. She wanted to wait for her to help her get into the chair. Pt is very obsessed with germs and how things are handled in her room as far as touching clean items with dirty
gloves etc. For example if something is on the floor and you pick it up and then continue to use the same gloves to touch clean towels on the counter, that is very upsetting to her. Her anger is projected toward the staff at times. Will educate
staff on her preferences and continue to be available.
--- NOTE | 2024-03-01 14:38 | W.PN.PUL3 ---
Today's Communication / Plan
-
Hypoxemia, likely to need 4-5L with exertion, she has refused home O2 eval
Continue to wean further as tolerated
Prednisone taper
Anxiety is an issue
Discharge planning per team when patient is ready
Assessment
-
58-year-old female smoker with history of COPD followed by Dr. Quijano recently discharged from the hospital 09/24/23, presents with progressive shortness of breath, dyspnea, flulike illness noted to have flu and COPD exacerbation-pulmonary consulted
for COPD exacerbation/influenza 02/27/24.
.
Acute hypoxemic respiratory failure, on 4-5L NC
PYJX-dkg-zmxyp Gold stage IV with acute exacerbation.
Influenza A
Recent right lower lobe community acquired pneumonia
Conditions present prior to admission:
Hyperlipidemia.
Diverticulosis.
GERD.
COPD-Near end-stage on 2 L oxygen
Colon polyp.
Seasonal allergies
Obesity.
Right breast cancer. .
Polycystic ovarian syndrome.
Chronic pain
Salpingo-oophorectomy 2008. Right breast cancer surgery 2022.
Plan
Respiratory decompensation from advanced underlying lung disease, ongoing smoking, recent viral infection and pneumonia, now with influenza.
Supplemental oxygen as needed-currently on 4L - 95% saturation
High chance she would need some level of O2 at home, but she has POC/concentrator at home
She continues to report 'prolonged desat' while on commode > 7 mins
I observed her on commode today 03/01, minimum desat to 86% on 4L (<10s with rapid recovery)--also witnessed by friend on the phone
I coached her through rapid mouth breathing (panicking) encouraging her to take deep breaths through nose
I reviewed with her ambulatory sat eval to maybe increase to 5L with exertion for home use--she was agreeable and then refused to RT
I reviewed this with her care team
DuoNebs 4 times daily
Symbicort 160/4.5 continues
Prednisone 40 mg daily
Mucolytic
Mucus clearing devices.
Reviewed CT chest findings with patient-emphysema, mild right-sided infiltrate, and no evidence for 'fibrosis' which is when she was worried about
Cultures reviewed
Influenza positive
Tamiflu
Isolation/droplet precautions
Empiric antibiotics-ceftriaxone and azithromycin initiated.
Analgesia with chronic pain syndrome per primary service
Smoking cessation counseling
Nicotine Patch if needed.
DVT prophylaxis-on Lovenox.. Sliding nutrition.
Early mobilization
Patient is primary caregiver to her ex- who is a double lung transplant for pulmonary fibrosis doing well Since 2016
Explained advanced emphysema on objective testing-near end-stage emphysema
Patient last saw Dr. Quijano 12/11/23 and has an appointment 03/12/24 at 9 AM
Diagnostic data:
CT chest 11/15/2023, reviewed Roberto Kitchen 12/11/2023 08:32:44 AM EDT >��������Marked interval improvement in multifocal pneumonia throughout the right lung, with only a few small airspace/nodular opacities remaining. No new
infectious/inflammatory process.Stable mild upper lobe predominant centrilobular emphysema
Pulmonary function testing ( 12/11/2023� ):FEV1: 0.7 L-26% postbronchodilator FVC:2.64 L-75%FEV1/FVC ratio:27%T.12 L-118%RV: 3.3 L-170%ERV:RV/TLC ratio:54%DLCO: 5.34-22%DLCO/VA: 20%.
6 minute walk testing: ( 12/10/2023 )Pulse ox at rest on room air:98%Lowest oxygen saturation:83% after 10 minutes.� Required 2 L of supplemental oxygen to maintain pulse ox 93%.Dyspnea scale: 2/10Heart rate at rest,84Maximum heart rate:107Walk
distance:918 feet Oxygen requirements:2L
Total time spent on this consultation/encounter __55__ minutes which includes review of history, physical exam, medications, laboratory data, personal review of imaging, extensive review of outpatient records, discussion with care team and
respiratory therapy.
Subjective Data
-
Date of Service:
Date of Service: March 01, 2024
Chief Complaint: Pulmonary Follow Up, Dyspnea Follow Up and Pneumonia Follow Up
Subjective:
remains on 4L NC, patient reportedly desats for >5 mins using commode
anxious appearing
Objective Data
Data Reviewed
Vital Signs / I&O / Oxygen:
Vital Signs
Temp Pulse Resp BP Pulse Ox
99.2 F 92 18 142/86 94
03/01/24 11:10 03/01/24 14:11 03/01/24 14:11 03/01/24 11:10 03/01/24 14:11
Intake and Output
02/29/24 03/01/24 03/02/24
06:59 06:59 06:59
Intake Total 360 / 360 1959
Balance 360 / 360 1959 / 1959
SaO2 94
Nasal Cannula flow liters per 4
minute
Physical Exam
General: Respiratory Distress (n) and Comfortable
HEENT: Normocephalic, Anicteric and Moist Mucous Membranes
Cardiovascular: Regular Rhythm
Respiratory: Clear (Diminished breath sounds, prolonged expiratory time), Crackles (n), Rhonchi (n), Non-Labored Respirations, Accessory Resp Muscle Use (n) and Stridor (n)
GI: Soft, Non Distended and Non Tender
Neurology: Awake, Alert, Oriented and No Motor Deficits
Skin: Warm, Good Color, Cyanosis (n), Jaundice (n) and Rash (n)
Labs/Micro/Reports
Lab Data
02/29/24 05:34
02/29/24 05:34
[2024-03-01 15:40] VITALS: BP 145/80
[2024-03-01] MEDS: LOVENOX 40 MG SC (17:52)
[2024-03-01] MEDS: MELATONIN 5 MG PO (21:46)
[2024-03-01] MEDS: REFRESH CELLUVISC GEL 1 DROPS BOTH EYES (21:46)
[2024-03-01] MEDS: ARIMIDEX 1 MG PO (21:46)
[2024-03-01] MEDS: ROCEPHIN 1000 MG IV (21:46)
[2024-03-01] MEDS: STERILE WATER FOR INJECTION 10 ML IV (21:47)
--- NOTE | 2024-03-01 22:45 | PTCARENOTE ---
Flushed pt's IV prior to IVP abx, pt believes IV site is infiltrated despite flushing w/o issue. VAT RN contacted to assess at pt's request. VAT RN redressed and flushed IV w/o difficulty. Meds administered per MD order w/o complication.
--- NOTE | 2024-03-01 22:50 | PTCARENOTE ---
Pt insistent to walk to BR. Instructed RN would need to be present in the event of respiratory distress. Pt able to walk to BR (increased pt to 6L prior to ambulation per RT recommendation). Pt had BM and returned to bed w/minimal TREVINO. Decreased
O2 to 3L and pt's sats recovered from 83% to 92% in < 5 minutes.
[2024-03-01 23:47] VITALS: BP 116/69
--- NOTE | 2024-03-02 04:52 | PTCARENOTE ---
Pt rang for 0600 [facility] stating 'before you get busy' Explained would return after 0500. Pt's periwipes were on the floor next to BSC, instructed RN to throw away since they were on the floor. Explained package is closed and throwing away a full
pack of unused wipes is a waste of hospital supplies. Pt then instructed to place on bed. Pt became angry and argumentative that 'contaminated wipes from the floor are now on my bed' and verbalizes concern for hospital acquired infection. RN
asked where she would like the wipes placed, pt verbalized in the trash. Instructed that no more wipes to be provided since being wasted as toilet paper is readily available. Telephone call placed to [employer] regarding events.
[2024-03-02] MEDS: ZYRTEC 10 MG PO (05:13)
[2024-03-02 07:30] VITALS: BP 160/90
[2024-03-02] MEDS: SYMBICORT 160/4.5 MCG INHALER 2 PUFF INH (07:37)
[2024-03-02] MEDS: XOPENEX 0.63 MG INHALANT SOLUTION INH ×3 (07:39→19:56)
--- NOTE | 2024-03-02 08:08 | W.PN.PUL3 ---
Today's Communication / Plan
-
Step up steroids from prednisone 40 mg daily to Solu-Medrol 40mg IV q6hr
Monitor for hyperglycemia
Continue supplemental O2 with goal SpO2 88-95%
Home O2 eval prior to discharge
Prolonged prednisone taper upon discharge
Anxiety is an issue
Discharge planning per team when patient is ready
Assessment
-
58-year-old female smoker with history of COPD followed by Dr. Quijano recently discharged from the hospital 09/24/23, presents with progressive shortness of breath, dyspnea, flulike illness noted to have flu and COPD exacerbation-pulmonary consulted
for COPD exacerbation/influenza 02/27/24.
.
Acute hypoxemic respiratory failure, currently on 3L NC
HSAX-cbf-scnnv Gold stage IV with acute exacerbation in setting of Flu A
Influenza A
Recent right lower lobe community acquired pneumonia
Conditions present prior to admission:
Hyperlipidemia.
Diverticulosis.
GERD.
COPD-Near end-stage on 2 L oxygen
Colon polyp.
Seasonal allergies
Obesity.
Right breast cancer. .
Polycystic ovarian syndrome.
Chronic pain
Salpingo-oophorectomy 2008. Right breast cancer surgery 2022.
Plan
Respiratory decompensation from advanced underlying lung disease, ongoing smoking, recent viral infection and pneumonia, now with influenza.
Supplemental oxygen as needed-currently on 3L
High chance she would need some level of O2 at home, but she has POC/concentrator at home
She continues to report 'prolonged desat' while on commode > 7 mins and during minor activities
Dr. Valderrama observed her on commode on 03/01, minimum desat to 86% on 4L (<10s with rapid recovery)--also witnessed by friend on the phone
Dr. Valderrama coached her through rapid mouth breathing (panicking) encouraging her to take deep breaths through nose
Dr. Valderrama reviewed with her ambulatory sat eval to maybe increase to 5L with exertion for home use--she was agreeable and then refused to RT
Given that she continues to be SOB and have significant dyspnea during exertion, I will raise her steroids from prednisone 40 mg daily to Solu-Medrol; will leave the 40 mg IV q6hr for now and re-assess daily
Once ready for discharge then she will need prolonged steroid taper with prednisone
Currently on Xopenex TID --> add atrovent TID and budesonide BID
Symbicort 160/4.5mcg continues
Mucolytic
Mucus clearing devices
Reviewed CT chest findings with patient-emphysema, mild right-sided infiltrate, and no evidence for 'fibrosis' which is when she was worried about
Influenza positive
s/p Tamiflu (02/24 - 03/01/2024)
Isolation/droplet precautions
Empiric antibiotics- continue ceftriaxone (started 02/24); been on azithromycin since 02/25 (home med)
Analgesia with chronic pain syndrome per primary service
Smoking cessation counseling
Nicotine Patch if needed.
DVT prophylaxis-on Lovenox.. Sliding nutrition.
Early mobilization
Patient is primary caregiver to her ex- who is a double lung transplant for pulmonary fibrosis - doing well since 2015
Explained advanced emphysema on objective testing-near end-stage emphysema
Patient last saw Dr. Quijano 12/11/23 and has an appointment 03/12/24 at 9 AM
Diagnostic data:
CT chest 11/15/2023, reviewed Roberto Kitchen 12/11/2023 08:32:44 AM EDT >��������Marked interval improvement in multifocal pneumonia throughout the right lung, with only a few small airspace/nodular opacities remaining. No new
infectious/inflammatory process.Stable mild upper lobe predominant centrilobular emphysema
Pulmonary function testing ( 12/11/2023� ):FEV1: 0.7 L-26% postbronchodilator FVC:2.64 L-75%FEV1/FVC ratio:27%T.12 L-118%RV: 3.3 L-170%ERV:RV/TLC ratio:54%DLCO: 5.34-22%DLCO/VA: 20%.
6 minute walk testing: ( 12/10/2023 )Pulse ox at rest on room air:98%Lowest oxygen saturation:83% after 10 minutes.� Required 2 L of supplemental oxygen to maintain pulse ox 93%.Dyspnea scale: 2/10Heart rate at rest,84Maximum heart rate:107Walk
distance:918 feet Oxygen requirements:2L
Total time spent today was 37 minutes for this encounter. Time includes reviewing laboratory test/imaging results, reviewing pertinent medical records, obtaining and reviewing medical history, performing an appropriate exam, ordering medications,
tests and procedures. Time also includes documentation of this encounter, coordinating patient care and communicating with other healthcare professionals. Total time does not include separately billed tests performed on this date of service.
Subjective Data
-
Date of Service:
Date of Service: March 02, 2024
Chief Complaint: Pulmonary Follow Up, Dyspnea Follow Up and Pneumonia Follow Up
Subjective:
Patient seen and evaluated this morning. Still symptomatic with shortness of breath during activities, even going directly bedside to the commode. Has a cough with difficulty bringing up phlegm. Currently on 3 L/min and at rest she is breathing
okay. Afebrile overnight. Currently denies chest pain, MARQUEZ, Hernan pain, nausea, fevers or chills.
Review of Systems
General: Other (Negative unless mentioned above)
Objective Data
Data Reviewed
Vital Signs / I&O / Oxygen:
Vital Signs
Temp Pulse Resp BP Pulse Ox
98.8 F 95 19 116/69 91
03/01/24 23:47 03/02/24 07:45 03/02/24 07:45 03/01/24 23:47 03/02/24 07:45
Intake and Output
03/01/24 03/02/24 03/03/24
06:59 06:59 06:59
Intake Total 1959 1720 / 1720
Balance 1959 172 / 1720
SaO2 91
Nasal Cannula flow liters per 2
minute
Physical Exam
General: Respiratory Distress (n), Comfortable, Chills (n) and Sweats (n)
HEENT: Normocephalic, Anicteric and Moist Mucous Membranes
Cardiovascular: S1-S2 and Peripheral Edema (n)
Respiratory: Wheeze (Faintly heard in the posterior right upper lobe), Crackles (n), Rhonchi (n), Non-Labored Respirations, Accessory Resp Muscle Use (n), Stridor (n) and Other (Greatly diminished breath sounds bilaterally)
GI: Soft, Non Distended, Non Tender and Normal Bowel Sounds
Neurology: AO x 3 and Tremors (n)
Skin: Warm, Dry, Cyanosis (n), Jaundice (n) and Rash (n)
Labs/Micro/Reports
Lab Data
02/29/24 05:34
02/29/24 05:34
[2024-03-02] MEDS: ZITHROMAX 250 MG PO (09:34)
[2024-03-02] MEDS: NORCO 7.5/325 1 TABLET PO (09:34)
[2024-03-02] MEDS: MUCINEX 1200 MG PO ×2 (09:34→21:12)
--- NOTE | 2024-03-02 09:34 | W.PN.HOSP.TC ---
Today's Communication/Plan
-
dc planning
Assessment / Plan
Assessment / Plan
Physical Exam
General: Not in acute distress
HEENT: Normocephalic
Respiratory: Decreased Breath Sounds Bilaterally, no wheezes.
Cardiac: S1/S2 and Regular Rhythm
GI: Soft, Non Tender, Non Distended and Normal Bowel Sounds
Musculoskeletal: No Cyanosis and No Edema
Skin: Warm
Neuro: Nonfocal/grossly intact
Psych: Calm
Assessment/Plan
58 y/o female with past medical history of COPD on 2 L home O2 as needed presented with hypoxia, dyspnea on exertion and fevers. Found to have influenza (symptoms began about 4 days before presentation) and a right middle lobe hazy opacity. She had
significant oxygen requirement saturating 95% on 4 L.
# Pt reported this morning that she was not fully aware of her condition and did not have an formations about her respiratory disease. She also said the nebulizer was changed without receiving much information.
I informed the patient that she has had multiple discussions regarding her condition and to summarize it the influenza virus worsened her COPD. She was also told and informed her about the change to Xopenex after she reported that DuoNeb was making
her more in distress and coughing. I wrote Xopenex Names on the board in front of her so she will continue to remember.
Nursing staff reported that patient said her oxygen was around 70s for some time. Nurse could not see that reading or confirm it. Nurse reported that hypoxia recovered after ambulation and with oxygen without extended time.
#Influenza A- Influenza with marked hypoxia in patient with COPD and smoking.
c/w viral pneumonia
- No PE on CT Chest
- Tamiflu 75 bid , finished 5 days course.
- ceftriaxone/azithromycin
- s/p DuoNeb RTC and prn, changed to Xopenex due to distress/ coughing experienced after Duo Neb
- prednisone 50 mg daily -- taper the prednisone based on clinical improvement
- continue her home ICS/LABA/LAMA, changed to Xopenex
- supportive care
- continue monitoring on telemetry
- Added PRN low dose IV Morphine for distress/ anxiety
-- Appreciate pulmonary help
#History of Right lower lobe pneumonia, community-acquired.
#Acute on chronic hypoxic respiratory failure
Currently she is requiring O2 ATC, she was using it at home at night /exertion/walking
#Endometriosis status post tubo-ovarian surgery
#Polycystic ovary syndrome
-Resumed Anastrazole (night of 02/27/24), as per patient request
#Chronic pain requiring opiate administration
added PRN dose of IV morphine also
#Tobacco use disorder, ongoing.
DVT Prophylaxis: Lovenox subq
Code Status: Full code
Total time spent to see the patient, examine the patient, review data and lab results, discuss treatment plan with patient, nursing staff around 55 minutes
Anticipated Discharge: Today
Subjective/Interval History
-
Date of Service: March 02, 2024
She feels sob at times, reports low oxygen, she wants to see pulmonary doctor today
Objective Data
-
Vital Signs:
Vital Signs
Temp Pulse Resp BP Pulse Ox
97.6 F 95 19 160/90 91
03/02/24 07:30 03/02/24 07:45 03/02/24 07:45 03/02/24 07:30 03/02/24 07:45
I&O
03/01/24 03/02/24 03/03/24
06:59 06:59 06:59
Intake Total 1959
Balance 1959
[2024-03-02] MEDS: DELTASONE 40 MG PO (09:35)
[2024-03-02] MEDS: SOLU-MEDROL PF 40 MG IV ×3 (13:39→23:18)
[2024-03-02] MEDS: ATROVENT NEBULES 0.5 MG INH ×2 (14:25→19:56)
--- NOTE | 2024-03-02 14:46 | CM ---
Reviewed the chart notes. Per notes, patient ready for discharge. CM continues to be available to patient/family and is monitoring medical plan for needs at discharge.
Plan: Discharge to home when medically stable. No needs identified at this time.
[2024-03-02 15:48] VITALS: BP 133/81
[2024-03-02] MEDS: LOVENOX 40 MG SC (17:52)
[2024-03-02] MEDS: PULMICORT 0.5 MG INH (19:55)
[2024-03-02] MEDS: MELATONIN 5 MG PO (21:12)
[2024-03-02] MEDS: ARIMIDEX 1 MG PO (21:12)
[2024-03-02] MEDS: REFRESH CELLUVISC GEL 1 DROPS BOTH EYES (21:12)
[2024-03-02] MEDS: ROCEPHIN 1000 MG IV (21:12)
[2024-03-02] MEDS: STERILE WATER FOR INJECTION 10 ML IV (21:13)
[2024-03-02 23:26] VITALS: BP 139/80
[2024-03-03] MEDS: ZYRTEC 10 MG PO (05:33)
[2024-03-03] MEDS: SOLU-MEDROL PF 40 MG IV ×3 (05:33→23:35)
[2024-03-03] MEDS: ATROVENT NEBULES 0.5 MG INH ×3 (07:32→19:46)
[2024-03-03] MEDS: PULMICORT 0.5 MG INH ×2 (07:32→19:46)
[2024-03-03] MEDS: XOPENEX 0.63 MG INHALANT SOLUTION INH ×3 (07:32→19:46)
[2024-03-03] MEDS: MUCINEX 1200 MG PO ×2 (08:02→21:30)
[2024-03-03] MEDS: NORCO 7.5/325 1 TABLET PO (08:02)
[2024-03-03 08:04] VITALS: BP 135/40
--- NOTE | 2024-03-03 09:10 | W.PN.PUL3 ---
Today's Communication / Plan
-
Decrease dose of steroids to Solu-Medrol 40 mg IV q8hr
Monitor for hyperglycemia
Continue supplemental O2 with goal SpO2 88-95%
Home O2 eval prior to discharge
Prolonged prednisone taper upon discharge
Anxiety is an issue --> start prn hydroxyzine
Atrovent/xopenex and budesonide
Resume zithromax (home med) and occasionally check EKG to trend QTc
Discharge planning per team when patient is ready
Assessment
-
58-year-old female smoker with history of COPD followed by Dr. Quijano recently discharged from the hospital 09/24/23, presents with progressive shortness of breath, dyspnea, flulike illness noted to have flu and COPD exacerbation-pulmonary consulted
for COPD exacerbation/influenza 02/27/24.
.
Acute hypoxemic respiratory failure, currently on 3L NC
[id number]-[id number] Gold stage IV with acute exacerbation in setting of Flu A
Influenza A
Recent right lower lobe community acquired pneumonia
Conditions present prior to admission:
Hyperlipidemia.
Diverticulosis.
GERD.
COPD-Near end-stage on 2 L oxygen
Colon polyp.
Seasonal allergies
Obesity.
Right breast cancer. .
Polycystic ovarian syndrome.
Chronic pain
Salpingo-oophorectomy 2008. Right breast cancer surgery 2022.
Plan
Respiratory decompensation from advanced underlying lung disease, ongoing smoking, recent viral infection and pneumonia, now with influenza.
Supplemental oxygen as needed-currently on 3L
High chance she would need some level of O2 at home, but she has POC/concentrator at home
She continues to report 'prolonged desat' while on commode > 7 mins and during minor activities
Dr. Valderrama observed her on commode on 03/01, minimum desat to 86% on 4L (<10s with rapid recovery)--also witnessed by friend on the phone
Dr. Valderrama coached her through rapid mouth breathing (panicking) encouraging her to take deep breaths through nose
Dr. Valderrama reviewed with her ambulatory sat eval to maybe increase to 5L with exertion for home use--she was agreeable and then refused to RT
Given that she continues to be SOB and have significant dyspnea during exertion, I raised her steroids from prednisone 40 mg daily to Solu-Medrol 40mg IV q6hr on 03/02/2024 --> she is having jitters with anxiety on this dose --> lower to 40mg IV q8hr
for now and continue to monitor and wean as she clinically improves
Once ready for discharge then she will need prolonged steroid taper with prednisone
Currently on Xopenex TID --> continue atrovent TID and budesonide BID
Mucolytics withg mucinex
s/p symbicort 160mcg - last dose on 03/02/2024
Mucous clearing devices
Reviewed CT chest findings with patient-emphysema, mild right-sided infiltrate, and no evidence for 'fibrosis' which is when she was worried about
Influenza positive on 02/25/2024
s/p Tamiflu (02/24 - 03/01/2024)
Isolation/droplet precautions
Empiric antibiotics- s/p ceftriaxone (02/24-03/02/2024); s/p azithromycin (02/25-03/02/2024) - this is a home med so this can be continued with occasional trending of QTc
Analgesia with chronic pain syndrome per primary service
Smoking cessation counseling
Nicotine Patch if needed.
DVT prophylaxis-on Lovenox
Early mobilization
Patient is primary caregiver to her ex- who is a double lung transplant for pulmonary fibrosis - doing well since 2016
Explained advanced emphysema on objective testing-near end-stage emphysema
Patient last saw Dr. Quijano 12/11/23 and has an appointment 03/12/24 at 9 AM
Diagnostic data:
CT chest 11/15/2023, reviewed Roberto Kitchen 12/11/2023 08:32:44 AM EDT >��������Marked interval improvement in multifocal pneumonia throughout the right lung, with only a few small airspace/nodular opacities remaining. No new
infectious/inflammatory process.Stable mild upper lobe predominant centrilobular emphysema
Pulmonary function testing ( 12/11/2023� ):FEV1: 0.7 L-26% postbronchodilator FVC:2.64 L-75%FEV1/FVC ratio:27%T.12 L-118%RV: 3.3 L-170%ERV:RV/TLC ratio:54%DLCO: 5.34-22%DLCO/VA: 20%.
6 minute walk testing: ( 12/10/2023 )Pulse ox at rest on room air:98%Lowest oxygen saturation:83% after 10 minutes.� Required 2 L of supplemental oxygen to maintain pulse ox 93%.Dyspnea scale: 2/10Heart rate at rest,84Maximum heart rate:107Walk
distance:918 feet Oxygen requirements:2L
Total time spent today was 38 minutes for this encounter. Time includes reviewing laboratory test/imaging results, reviewing pertinent medical records, obtaining and reviewing medical history, performing an appropriate exam, ordering medications,
tests and procedures. Time also includes documentation of this encounter, coordinating patient care and communicating with other healthcare professionals. Total time does not include separately billed tests performed on this date of service.
Subjective Data
-
Date of Service:
Date of Service: March 03, 2024
Chief Complaint: Pulmonary Follow Up, Dyspnea Follow Up and Pneumonia Follow Up
Subjective:
Patient seen and evaluated today at bedside. She says she is picking up phlegm which is making her little more short of breath today but she says that overall she is improving. Currently saturating 90% on 3 L/min. She feels tired after having a
busy morning. Currently denies chest pain, MARQUEZ, nausea, fevers or chills.
Review of Systems
General: Other (Negative unless mentioned above)
Objective Data
Data Reviewed
Vital Signs / I&O / Oxygen:
Vital Signs
Temp Pulse Resp BP Pulse Ox
97.7 F 69 17 135/40 97
03/03/24 08:04 03/03/24 08:04 03/03/24 08:04 03/03/24 08:04 03/03/24 08:07
Intake and Output
03/02/24 03/03/24 03/04/24
06:59 06:59 06:59
Intake Total 1720 / 1720 2400 / 2400
Balance 1720 / 1720 2400 / 2400
SaO2 97
Nasal Cannula flow liters per 3
minute
Physical Exam
General: Respiratory Distress (n), Comfortable, Chills (n) and Sweats (n)
HEENT: Normocephalic, Anicteric and Moist Mucous Membranes
Cardiovascular: S1-S2 and Peripheral Edema (n)
Respiratory: Wheeze (Faintly heard in posterior lung chaparro bilaterally), Crackles (n), Rhonchi (n), Non-Labored Respirations, Accessory Resp Muscle Use (n), Stridor (n) and Other (Greatly diminished breath sounds bilaterally)
GI: Soft, Non Distended, Non Tender and Normal Bowel Sounds
Neurology: AO x 3 and Tremors (n)
Skin: Warm, Dry, Cyanosis (n), Jaundice (n) and Rash (n)
Labs/Micro/Reports
Lab Data
02/29/24 05:34
02/29/24 05:34
--- NOTE | 2024-03-03 10:36 | W.PN.HOSP.TC ---
Today's Communication/Plan
-
f/w pul recommendations
Assessment / Plan
Assessment / Plan
Physical Exam
General: Not in acute distress
HEENT: Normocephalic
Respiratory: Decreased Breath Sounds Bilaterally, no wheezes.
Cardiac: S1/S2 and Regular Rhythm
GI: Soft, Non Tender, Non Distended and Normal Bowel Sounds
Musculoskeletal: No Cyanosis and No Edema
Skin: Warm
Neuro: Nonfocal/grossly intact
Psych: Calm
Assessment/Plan
58 y/o female with past medical history of COPD on 2 L home O2 as needed presented with hypoxia, dyspnea on exertion and fevers. Found to have influenza (symptoms began about 4 days before presentation) and a right middle lobe hazy opacity. She had
significant oxygen requirement saturating 95% on 4 L.
# Pt reported this morning that she was not fully aware of her condition and did not have an formations about her respiratory disease. She also said the nebulizer was changed without receiving much information.
I informed the patient that she has had multiple discussions regarding her condition and to summarize it the influenza virus worsened her COPD. She was also told and informed her about the change to Xopenex after she reported that DuoNeb was making
her more in distress and coughing. I wrote Xopenex Names on the board in front of her so she will continue to remember.
Nursing staff reported that patient said her oxygen was around 70s for some time. Nurse could not see that reading or confirm it. Nurse reported that hypoxia recovered after ambulation and with oxygen without extended time.
#Influenza A- Influenza with marked hypoxia in patient with COPD and smoking.
c/w viral pneumonia
- No PE on CT Chest
- Tamiflu 75 bid , finished 5 days course.
- ceftriaxone/azithromycin
- s/p DuoNeb RTC and prn, changed to Xopenex due to distress/ coughing experienced after Duo Neb
- prednisone was dc by pulmonary on 03/02 , now on methylprednisolone high dose, she is jittery and unable to sleep
- continue her home ICS/LABA/LAMA, changed to Xopenex
- supportive care
- continue monitoring on telemetry
- Added PRN low dose IV Morphine for distress/ anxiety
-- Appreciate pulmonary help
#History of Right lower lobe pneumonia, community-acquired.
#Acute on chronic hypoxic respiratory failure
Currently she is requiring O2 ATC, she was using it at home at night /exertion/walking
#Endometriosis status post tubo-ovarian surgery
#Polycystic ovary syndrome
-Resumed Anastrazole (night of 02/27/24), as per patient request
#Chronic pain requiring opiate administration
added PRN dose of IV morphine also
#Tobacco use disorder, ongoing.
DVT Prophylaxis: Lovenox subq
Code Status: Full code
Total time spent to see the patient, examine the patient, review data and lab results, discuss treatment plan with patient, nursing staff around 55 minutes
Anticipated Discharge: Within 24 hours
Subjective/Interval History
-
Date of Service: March 03, 2024
She feels better
Jittery from high steroid
Objective Data
-
Vital Signs:
Vital Signs
Temp Pulse Resp BP Pulse Ox
97.7 F 69 17 135/40 97
03/03/24 08:04 03/03/24 08:04 03/03/24 08:04 03/03/24 08:04 03/03/24 08:07
I&O
03/02/24 03/03/24 03/04/24
06:59 06:59 06:59
Intake Total 1720 / 1720 2400 / 2400
Balance 1720 / 1720 2400 / 2400
--- NOTE | 2024-03-03 12:53 | CM ---
Reviewed the chart notes. Per notes, patient to follow pulmonary recommendations. CM continues to be available to patient/family and is monitoring medical plan for needs at discharge.
Plan: Discharge to home when medically stable. No needs identified at this time.
[2024-03-03 16:03] VITALS: BP 137/76
[2024-03-03] MEDS: ATARAX 50 MG PO (17:16)
[2024-03-03] MEDS: LOVENOX 40 MG SC (17:20)
[2024-03-03] MEDS: REFRESH CELLUVISC GEL 1 DROPS BOTH EYES (21:30)
[2024-03-03] MEDS: ARIMIDEX 1 MG PO (21:30)
[2024-03-03] MEDS: MELATONIN 5 MG PO (21:30)
[2024-03-03 23:43] VITALS: BP 120/71
[2024-03-04] MEDS: ZYRTEC 10 MG PO (06:14)
--- NOTE | 2024-03-04 06:49 | W.PN.HOSP.TC ---
Today's Communication/Plan
-
.
Assessment / Plan
Assessment / Plan
Physical Exam
General: Not in acute distress
HEENT: Normocephalic
Respiratory: Decreased Breath Sounds Bilaterally, no wheezes.
Cardiac: S1/S2 and Regular Rhythm
GI: Soft, Non Tender, Non Distended and Normal Bowel Sounds
Musculoskeletal: No Cyanosis and No Edema
Skin: Warm
Neuro: Nonfocal/grossly intact
Psych: Calm
Assessment/Plan
58 y/o female with past medical history of COPD on 2 L home O2 as needed presented with hypoxia, dyspnea on exertion and fevers. Found to have influenza (symptoms began about 4 days before presentation) and a right middle lobe hazy opacity. She had
significant oxygen requirement saturating 95% on 4 L.
# Pt reported this morning that she was not fully aware of her condition and did not have an formations about her respiratory disease. She also said the nebulizer was changed without receiving much information.
I informed the patient that she has had multiple discussions regarding her condition and to summarize it the influenza virus worsened her COPD. She was also told and informed her about the change to Xopenex after she reported that DuoNeb was making
her more in distress and coughing. I wrote Xopenex Names on the board in front of her so she will continue to remember.
Nursing staff reported that patient said her oxygen was around 70s for some time. Nurse could not see that reading or confirm it. Nurse reported that hypoxia recovered after ambulation and with oxygen without extended time.
#Influenza A- Influenza with marked hypoxia in patient with COPD and smoking.
c/w viral pneumonia
- No PE on CT Chest
- Tamiflu 75 bid , finished 5 days course.
- ceftriaxone/azithromycin
- s/p DuoNeb RTC and prn, changed to Xopenex due to distress/ coughing experienced after Duo Neb
- prednisone was dc by pulmonary on 03/02 , now on methylprednisolone high dose,
- continue her home ICS/LABA/LAMA, changed to Xopenex
- supportive care
- continue monitoring on telemetry
- Added PRN low dose IV Morphine for distress/ anxiety
-- Appreciate pulmonary help
#History of Right lower lobe pneumonia, community-acquired.
#Acute on chronic hypoxic respiratory failure
Currently she is requiring O2 ATC, she was using it at home at night /exertion/walking
#Endometriosis status post tubo-ovarian surgery
#Polycystic ovary syndrome
-Resumed Anastrazole (night of 02/27/24), as per patient request
#Chronic pain requiring opiate administration
added PRN dose of IV morphine also
#Tobacco use disorder, ongoing.
DVT Prophylaxis: Lovenox subq
Code Status: Full code
Total time spent to see the patient, examine the patient, review data and lab results, discuss treatment plan with patient, nursing staff around 55 minutes
Anticipated Discharge: Today
Subjective/Interval History
-
Date of Service: March 04, 2024
She feels better, less sob and wheezes.
Objective Data
-
Vital Signs:
Vital Signs
Temp Pulse Resp BP Pulse Ox
98.6 F 76 18 120/71 95
03/03/24 23:43 03/03/24 23:43 03/03/24 23:43 03/03/24 23:43 03/03/24 23:43
I&O
03/02/24 03/03/24 03/04/24
06:59 06:59 06:59
Intake Total 1720 / 1720 2400 / 2400 1080 / 1080
Balance 1720 / 1720 2400 / 2400 1080 / 1080
[2024-03-04 07:30] VITALS: BP 112/74
[2024-03-04] MEDS: PULMICORT 0.5 MG INH ×2 (07:43→20:14)
[2024-03-04] MEDS: XOPENEX 0.63 MG INHALANT SOLUTION INH ×3 (07:43→20:14)
[2024-03-04] MEDS: ATROVENT NEBULES 0.5 MG INH ×3 (07:43→20:14)
[2024-03-04] MEDS: NORCO 7.5/325 1 TABLET PO (08:38)
[2024-03-04] MEDS: MUCINEX 1200 MG PO ×2 (08:38→21:16)
[2024-03-04] MEDS: SOLU-MEDROL PF 40 MG IV ×3 (08:38→23:48)
--- NOTE | 2024-03-04 09:05 | W.PN.PUL3 ---
Today's Communication / Plan
-
Decrease dose of steroids to Solu-Medrol 40 mg IV q8hr --> tomorrow will change to 40 mg IV q12hr
Monitor for hyperglycemia
Continue supplemental O2 with goal SpO2 88-95%
Home O2 eval prior to discharge
Prolonged prednisone taper upon discharge
Anxiety is an issue --> continue prn hydroxyzine
If patient does have severe sudden shortness of breath then would first treat with prn morphine, as she says she has had that before and it really helped her breathing the most
Check VBG tomorrow morning to assess for hypercapnia given her last serum bicarbonate level was 38 from 02/29/2024
Atrovent/xopenex and budesonide
Resume zithromax (home med) and occasionally check EKG to trend QTc
Discharge planning per team with outpatient office follow up - hopefulyl she will be ready for discharge over the next 2-3 days
Assessment
-
58-year-old female smoker with history of COPD followed by Dr. Quijano recently discharged from the hospital 09/24/23, presents with progressive shortness of breath, dyspnea, flulike illness noted to have flu and COPD exacerbation-pulmonary consulted
for COPD exacerbation/influenza 02/27/24.
.
Acute hypoxemic respiratory failure, currently on 3L NC
[id number]-[id number]-[id number] Gold stage IV with acute exacerbation in setting of Flu A
Influenza A diagnosed on 02/25/2024
Recent right lower lobe community acquired pneumonia
Conditions present prior to admission:
Hyperlipidemia.
Diverticulosis.
GERD.
COPD-Near end-stage on 2 L oxygen
Colon polyp.
Seasonal allergies
Obesity.
Right breast cancer. .
Polycystic ovarian syndrome.
Chronic pain
Salpingo-oophorectomy 2008. Right breast cancer surgery 2022.
Plan
Respiratory decompensation from advanced underlying lung disease, ongoing smoking, recent viral infection and pneumonia, now with influenza.
Supplemental oxygen as needed-currently on 3L
High probability she will require some level of O2 at home; of note, she has POC/concentrator at home
She continues to report 'prolonged desat' while on commode > 7 mins and during minor activities
Dr. Valderrama observed her on commode on 03/01, minimum desat to 86% on 4L (<10s with rapid recovery)--also witnessed by friend on the phone
Dr. Valderrama coached her through rapid mouth breathing (panicking) encouraging her to take deep breaths through nose
Dr. Valderrama reviewed with her ambulatory sat eval to maybe increase to 5L with exertion for home use--she was agreeable and then refused to RT
Given that she continues to be SOB and have significant dyspnea during exertion, I raised her steroids from prednisone 40 mg daily to Solu-Medrol 40mg IV q6hr on 03/02/2024 --> she was having jitters with anxiety on this dose --> on 03/03/2024 I
lowered to 40mg IV q8hr for now and continue to monitor and wean as she clinically improves --> hoping to reduce further tomorrow to 40mg IV q12hr
Once ready for discharge then she will need prolonged steroid taper with prednisone
Currently on Xopenex TID --> continue atrovent TID and budesonide BID
Mucolytics with mucinex
s/p symbicort 160mcg - last dose on 03/02/2024
Mucous clearing devices
Reviewed CT chest findings with patient-emphysema, mild right-sided infiltrate, and no evidence for 'fibrosis' which is when she was worried about
Influenza positive on 02/25/2024
s/p Tamiflu (02/24 - 03/01/2024)
Isolation/droplet precautions
Empiric antibiotics- s/p ceftriaxone (02/24-03/02/2024); s/p azithromycin (02/25-03/02/2024) - this is a home med so this will be continued with occasional trending of QTc
Analgesia with chronic pain syndrome per primary service
Smoking cessation counseling
Nicotine Patch if needed.
DVT prophylaxis-on Lovenox
Early mobilization
Patient is primary caregiver to her ex- who is a double lung transplant for pulmonary fibrosis - doing well since 2016
Explained advanced emphysema on objective testing-near end-stage emphysema
Patient last saw Dr. Quijano 12/11/23 and has an appointment 03/12/24 at 9 AM
Diagnostic data:
CT chest 11/15/2023, reviewed Roberto Kitchen 12/11/2023 08:32:44 AM EDT >��������Marked interval improvement in multifocal pneumonia throughout the right lung, with only a few small airspace/nodular opacities remaining. No new
infectious/inflammatory process.Stable mild upper lobe predominant centrilobular emphysema
Pulmonary function testing ( 12/11/2023� ):FEV1: 0.7 L-26% postbronchodilator FVC:2.64 L-75%FEV1/FVC ratio:27%T.12 L-118%RV: 3.3 L-170%ERV:RV/TLC ratio:54%DLCO: 5.34-22%DLCO/VA: 20%.
6 minute walk testing: ( 12/10/2023 )Pulse ox at rest on room air:98%Lowest oxygen saturation:83% after 10 minutes.� Required 2 L of supplemental oxygen to maintain pulse ox 93%.Dyspnea scale: 2/10Heart rate at rest,84Maximum heart rate:107Walk
distance:918 feet Oxygen requirements:2L
Total time spent today was 41 minutes for this encounter. Time includes reviewing laboratory test/imaging results, reviewing pertinent medical records, obtaining and reviewing medical history, performing an appropriate exam, ordering medications,
tests and procedures. Time also includes documentation of this encounter, coordinating patient care and communicating with other healthcare professionals. Total time does not include separately billed tests performed on this date of service.
Subjective Data
-
Date of Service:
Date of Service: March 04, 2024
Chief Complaint: Pulmonary Follow Up, Dyspnea Follow Up and Pneumonia Follow Up
Subjective:
Patient seen and evaluated today at bedside. Afebrile overnight. Currently on 3 L per nasal cannula and saturating 97%. She says she bringing up her phlegm better and feels like things are 'moving more when she coughs.' Shortness of breath is
not worse and is stable. She currently denies MARQUEZ, abdominal pain, nausea, fevers chills.
Review of Systems
General: Other (Negative unless mentioned above)
Objective Data
Data Reviewed
Vital Signs / I&O / Oxygen:
Vital Signs
Temp Pulse Resp BP Pulse Ox
98.2 F 102 15 112/74 96
03/04/24 07:30 03/04/24 07:49 03/04/24 07:49 03/04/24 07:30 03/04/24 09:04
Intake and Output
03/03/24 03/04/24 03/05/24
06:59 06:59 06:59
Intake Total 2400 / 2400 1080 / 1080
Balance 2400 / 2400 1080 / 1080
SaO2 96
Nasal Cannula flow liters per 3
minute
Physical Exam
General: Respiratory Distress (n), Comfortable, Chills (n) and Sweats (n)
HEENT: Normocephalic, Anicteric and Moist Mucous Membranes
Cardiovascular: S1-S2 and Peripheral Edema (n)
Respiratory: Wheeze (Faintly heard in posterior right upper lung field), Crackles (n), Rhonchi (n), Non-Labored Respirations, Accessory Resp Muscle Use (n), Stridor (n) and Other (Greatly diminished breath sounds bilaterally)
GI: Soft, Non Distended, Non Tender and Normal Bowel Sounds
Neurology: AO x 3 and Tremors (n)
Skin: Warm, Dry, Cyanosis (n), Jaundice (n) and Rash (n)
Labs/Micro/Reports
Lab Data
02/29/24 05:34
02/29/24 05:34
--- NOTE | 2024-03-04 09:39 | CM ---
Reviewed the chart notes. CM continues to be available to patient/family and is monitoring medical plan for needs at discharge.
Plan: Discharge to home when medically stable. No needs identified at this time.
[2024-03-04 15:58] VITALS: BP 144/68
[2024-03-04] MEDS: LOVENOX 40 MG SC (17:07)
--- NOTE | 2024-03-04 18:00 | PTCARENOTE ---
Patient ambulatory to bathroom throughout this shift, desats on exertion to low 80s POX on 3L; patient recovers to 92-95% on 3L after a few minutes at rest with deep breathing. Patient receiving IV steroids per pulmonology, denies any pain/states no
concerns throughout shift.
[2024-03-04] MEDS: ARIMIDEX 1 MG PO (21:16)
[2024-03-04] MEDS: MELATONIN 5 MG PO (21:16)
[2024-03-04] MEDS: REFRESH CELLUVISC GEL 1 DROPS BOTH EYES (21:16)
[2024-03-04] MEDS: MORPHINE SULFATE 2 MG IV (21:21)
[2024-03-04 23:42] VITALS: BP 139/73
[2024-03-05 05:33] LABS: Venous Blood Gas B.E. 18.1 mmol/L (-4 to +4); Venous Blood Gas HCO3 46.2 mmol/L (22-27); Venous Blood Gas O2 Sat % 99.5 %; Venous Blood Gas pCO2 68 mmHg (35-48); Venous Blood Gas pH 7.44 (7.32-7.43); Venous Blood Gas pO2 159 mmHg (30-50)
[2024-03-05] MEDS: ZYRTEC 10 MG PO (06:06)
[2024-03-05 07:20] VITALS: BP 138/74
[2024-03-05] MEDS: ATROVENT NEBULES 0.5 MG INH ×3 (07:30→19:56)
[2024-03-05] MEDS: PULMICORT 0.5 MG INH ×2 (07:30→19:56)
[2024-03-05] MEDS: XOPENEX 0.63 MG INHALANT SOLUTION INH ×3 (07:31→19:56)
--- NOTE | 2024-03-05 08:59 | W.PN.PUL3 ---
Today's Communication / Plan
-
Decrease dose of steroids to Solu-Medrol 40 mg IV q8hr --> tomorrow (03/06) will change to 40 mg IV q12hr
Monitor for hyperglycemia
Continue supplemental O2 with goal SpO2 88-95%
Home O2 eval prior to discharge
Prolonged prednisone taper upon discharge
Anxiety is an issue --> continue prn hydroxyzine and prn morphine
If patient does have severe sudden shortness of breath then would first treat with prn morphine, as she says she has had that before and it really helped her breathing the most
ABG this morning shows chronic hypercapnia with alkalemia, likely due to over-breathing in setting of metabolic alkalosis; continue to check VBG occasionally
Atrovent/xopenex and budesonide
Continue zithromax (home med) and occasionally check EKG to trend QTc
Discharge planning per team with outpatient office follow up - hopefully she will be ready for discharge over the next 2-3 days
Assessment
-
58-year-old female smoker with history of COPD followed by Dr. Quijano recently discharged from the hospital 09/24/23, presents with progressive shortness of breath, dyspnea, flulike illness noted to have flu and COPD exacerbation-pulmonary consulted
for COPD exacerbation/influenza 02/27/24.
.
Acute hypoxemic respiratory failure, currently on 3L NC
[id number] Gold stage IV with acute exacerbation in setting of Flu A
Influenza A diagnosed on 02/25/2024
Recent right lower lobe community acquired pneumonia
Conditions present prior to admission:
Hyperlipidemia.
Diverticulosis.
GERD.
COPD-Near end-stage on 2 L oxygen
Colon polyp.
Seasonal allergies
Obesity.
Right breast cancer. .
Polycystic ovarian syndrome.
Chronic pain
Salpingo-oophorectomy 2008. Right breast cancer surgery 2022.
Plan
Respiratory decompensation from advanced underlying lung disease, ongoing smoking, recent viral infection and pneumonia, now with influenza.
Wean down supplemental oxygen as tolerated, keeping SpO2 88-95% - currently on 3L
High probability she will require some level of O2 at home; of note, she has POC/concentrator at home
She continues to report 'prolonged desat' while on commode > 7 mins and during minor activities
Dr. Valderrama observed her on commode on 03/01, minimum desat to 86% on 4L (<10s with rapid recovery)--also witnessed by friend on the phone
Dr. Valderrama coached her through rapid mouth breathing (panicking) encouraging her to take deep breaths through nose
Dr. Valderrama reviewed with her ambulatory sat eval to maybe increase to 5L with exertion for home use--she was agreeable and then refused to RT
Given that she continues to be SOB and have significant dyspnea during exertion, I raised her steroids from prednisone 40 mg daily to Solu-Medrol 40mg IV q6hr on 03/02/2024 --> she was having jitters with anxiety on this dose --> on 03/03/2024 I
lowered to 40mg IV q8hr for now and continue to monitor and wean as she clinically improves --> I will reduce tomorrow (03/06) to 40mg IV q12hr
Once ready for discharge then she will need prolonged steroid taper with prednisone
Currently on Xopenex TID --> continue atrovent TID and budesonide BID
Mucolytics with mucinex
s/p symbicort 160mcg - last dose on 03/02/2024
Mucous clearing devices
Reviewed CT chest findings with patient-wide spread emphysema, mild right-sided infiltrate, and no evidence for 'fibrosis' which is when she was worried about
Influenza positive on 02/25/2024
s/p Tamiflu (02/24 - 03/01/2024)
Isolation/droplet precautions
Empiric antibiotics- s/p ceftriaxone (02/24-03/02/2024); s/p azithromycin (02/25-03/02/2024) - this is a home med so this will be continued with occasional trending of QTc (414ms this AM)
Analgesia with chronic pain syndrome per primary service
Smoking cessation counseling
Nicotine Patch if needed.
DVT prophylaxis-on Lovenox
Early mobilization
Patient is primary caregiver to her ex- who is a double lung transplant for pulmonary fibrosis - doing well since 2016
Explained advanced emphysema on objective testing-near end-stage emphysema
Patient last saw Dr. Quijano 12/11/23 and has an appointment 03/12/24 at 9 AM
Diagnostic data:
CT chest 11/15/2023, reviewed Roberto Kitchen 12/11/2023 08:32:44 AM EDT >��������Marked interval improvement in multifocal pneumonia throughout the right lung, with only a few small airspace/nodular opacities remaining. No new
infectious/inflammatory process.Stable mild upper lobe predominant centrilobular emphysema
Pulmonary function testing ( 12/11/2023� ):FEV1: 0.7 L-26% postbronchodilator FVC:2.64 L-75%FEV1/FVC ratio:27%T.12 L-118%RV: 3.3 L-170%ERV:RV/TLC ratio:54%DLCO: 5.34-22%DLCO/VA: 20%.
6 minute walk testing: ( 12/10/2023 )Pulse ox at rest on room air:98%Lowest oxygen saturation:83% after 10 minutes.� Required 2 L of supplemental oxygen to maintain pulse ox 93%.Dyspnea scale: 2/10Heart rate at rest,84Maximum heart rate:107Walk
distance:918 feet Oxygen requirements:2L
Total time spent today was 36 minutes for this encounter. Time includes reviewing laboratory test/imaging results, reviewing pertinent medical records, obtaining and reviewing medical history, performing an appropriate exam, ordering medications,
tests and procedures. Time also includes documentation of this encounter, coordinating patient care and communicating with other healthcare professionals. Total time does not include separately billed tests performed on this date of service.
Subjective Data
-
Date of Service:
Date of Service: March 05, 2024
Chief Complaint: Pulmonary Follow Up, Dyspnea Follow Up and Pneumonia Follow Up
Subjective:
Pt seen this AM. Resting in bed in NAD. Says she feels better today. Currently on 3L/min NC. SpO2 93%, heart rate 87. Bringing up her mucous more easily today. No chest pain reported. No abd pain, N/V/f/c.
Review of Systems
General: Other (Negative unless mentioned above)
Objective Data
Data Reviewed
Vital Signs / I&O / Oxygen:
Vital Signs
Temp Pulse Resp BP Pulse Ox
98.8 F 100 18 138/74 98
03/05/24 07:20 03/05/24 07:44 03/05/24 07:44 03/05/24 07:20 03/05/24 07:20
Intake and Output
03/04/24 03/05/24 03/06/24
06:59 06:59 06:59
Intake Total 1080 / 1080 2280 / 2280
Balance 1080 / 1080 2280 / 2280
SaO2 98
Nasal Cannula flow liters per 10
minute
Physical Exam
General: Respiratory Distress (n), Comfortable, Chills (n) and Sweats (n)
HEENT: Normocephalic, Anicteric and Moist Mucous Membranes
Cardiovascular: S1-S2 and Peripheral Edema (n)
Respiratory: Wheeze (Faintly heard in posterior left upper lung field), Crackles (n), Rhonchi (n), Non-Labored Respirations, Accessory Resp Muscle Use (n), Stridor (n) and Other (Greatly diminished breath sounds bilaterally)
GI: Soft, Non Distended, Non Tender and Normal Bowel Sounds
Neurology: AO x 3 and Tremors (n)
Skin: Warm, Dry, Cyanosis (n), Jaundice (n) and Rash (n)
Labs/Micro/Reports
Lab Data
02/29/24 05:34
02/29/24 05:34
[2024-03-05] MEDS: MUCINEX 1200 MG PO ×2 (09:30→20:44)
[2024-03-05] MEDS: NORCO 7.5/325 1 TABLET PO (09:30)
[2024-03-05] MEDS: SOLU-MEDROL PF 40 MG IV ×3 (09:31→23:46)
[2024-03-05] MEDS: ZITHROMAX 250 MG PO (09:31)
--- NOTE | 2024-03-05 10:02 | W.PN.HOSP.TC ---
Today's Communication/Plan
-
CW nebs, IV steroids.
Assessment / Plan
Assessment / Plan
Assessment/Plan
58 y/o female with past medical history of COPD on 2 L home O2 as needed presented with hypoxia, dyspnea on exertion and fevers. Found to have influenza (symptoms began about 4 days before presentation) and a right middle lobe hazy opacity. She had
significant oxygen requirement saturating 95% on 4 L.
#Influenza A- Influenza with marked hypoxia in patient with COPD and smoking.
c/w viral pneumonia
- No PE on CT Chest
- Tamiflu 75 bid , finished 5 days course.
- s/p ceftriaxone/azithromycin
- s/p DuoNeb RTC and prn, changed to Xopenex due to distress/ coughing experienced after Duo Neb
- prednisone was dc by pulmonary on 03/02 , now on methylprednisolone high dose,
- continue her home ICS/LABA/LAMA, changed to Xopenex
- supportive care
- continue monitoring on telemetry
- Added PRN low dose IV Morphine for distress/ anxiety
-- Appreciate pulmonary help
# COPD with flare from Flu
- cw steroids IV per pulm
- cw nebs, zithromax prophylactic dose
- VBG shows probable compensate chronic respiratory acidosis
- Eval for need of BiPAP
- Per pulm charting pt at near end COPD stage
#History of Right lower lobe pneumonia, community-acquired.
#Acute on chronic hypoxic respiratory failure
Currently she is requiring O2 ATC, she was using it at home at night /exertion/walking
#Endometriosis status post tubo-ovarian surgery
#Polycystic ovary syndrome
-Resumed Anastrazole (night of 02/27/24), as per patient request
#Chronic pain requiring opiate administration
added PRN dose of IV morphine also
#Tobacco use disorder, ongoing.Advised strongly to quit to prevent progression and exacerbation of her lung condition.
DVT Prophylaxis: Lovenox subq
Code Status: Full code
DW RN
Total time spent to see the patient, examine the patient, review data and lab results, discuss treatment plan with patient, nursing staff around 55 minutes
Anticipated Discharge: > 48 hours
Subjective/Interval History
-
Date of Service: March 05, 2024
No fevers but still with cough.
Noticing exertional shortness of breath. Oxygenation levels drop with exertion.
Denies any chest pain.
Objective Data
-
Vital Signs:
Vital Signs
Temp Pulse Resp BP Pulse Ox
98.8 F 100 18 138/74 98
03/05/24 07:20 03/05/24 07:44 03/05/24 07:44 03/05/24 07:20 03/05/24 07:20
I&O
03/04/24 03/05/24 03/06/24
06:59 06:59 06:59
Intake Total 1080 / 1080 2280 / 2280
Balance 1080 / 1080 2280 / 2280
Review of Systems
-
Abdomen/GI: Denies Abdominal Pain, Nausea or Vomiting
Neuro: Denies Dizzy
Physical Exam
-
General: No Apparent Distress
HEENT: Moist Mucous Membranes
Respiratory: Non Labored Respirations and Decreased Breath Sounds (in general); Negative Wheezes, Crackles or Accessory Resp Muscle Use
Cardiac: Regular Rhythm and S1/S2
GI: Soft
Neuro: AO x 3
Psych: Calm; Negative Confused
Data Reviewed
-
Labs: Labs Reviewed by me
[2024-03-05 15:50] VITALS: BP 135/70
[2024-03-05] MEDS: LOVENOX 40 MG SC (17:11)
[2024-03-05] MEDS: MELATONIN 5 MG PO (20:44)
[2024-03-05] MEDS: REFRESH CELLUVISC GEL 1 DROPS BOTH EYES (20:45)
[2024-03-05] MEDS: ARIMIDEX 1 MG PO (20:45)
[2024-03-05 23:25] VITALS: BP 130/70
[2024-03-06] MEDS: ZYRTEC 10 MG PO (05:33)
[2024-03-06] MEDS: PULMICORT 0.5 MG INH ×2 (07:26→19:54)
[2024-03-06] MEDS: XOPENEX 0.63 MG INHALANT SOLUTION INH ×3 (07:26→19:53)
[2024-03-06] MEDS: ATROVENT NEBULES 0.5 MG INH ×3 (07:26→19:54)
[2024-03-06 07:30] VITALS: BP 149/76
[2024-03-06] MEDS: ZITHROMAX 250 MG PO (08:19)
[2024-03-06] MEDS: NORCO 7.5/325 1 TABLET PO (08:19)
[2024-03-06] MEDS: SOLU-MEDROL PF 40 MG IV ×2 (08:19→21:00)
[2024-03-06] MEDS: MUCINEX 1200 MG PO ×2 (08:19→21:01)
--- NOTE | 2024-03-06 09:32 | W.PN.PUL3 ---
Today's Communication / Plan
-
Decreased dose of steroids to Solu-Medrol 40 mg IV q12hr from 40mg IV q8hr
Monitor for hyperglycemia
Continue supplemental O2 with goal SpO2 88-95%
Home O2 eval prior to discharge
Prolonged prednisone taper upon discharge
Anxiety is an issue --> continue prn hydroxyzine and prn morphine
If patient does have severe sudden shortness of breath then would first treat with prn morphine, as she says she has had that before and it really helped her breathing the most
ABG on morning of 03/05 showed chronic hypercapnia with alkalemia, likely due to over-breathing in setting of metabolic alkalosis; continue to check VBG occasionally
Atrovent/xopenex and budesonide
Continue zithromax (home med) and occasionally check EKG to trend QTc
Discharge planning per team with outpatient office follow up - hopefully she will be ready for discharge by Saturday or Saturday
Assessment
-
58-year-old female smoker with history of COPD followed by Dr. Quijano recently discharged from the hospital 09/24/23, presents with progressive shortness of breath, dyspnea, flulike illness noted to have flu and COPD exacerbation-pulmonary consulted
for COPD exacerbation/influenza 02/27/24.
Impression:
Acute hypoxemic respiratory failure, currently on 3L NC
[id number] Gold stage IV with acute exacerbation in setting of Flu A
Influenza A diagnosed on 02/25/2024
Recent right lower lobe community acquired pneumonia
Conditions present prior to admission:
Hyperlipidemia.
Diverticulosis.
GERD.
COPD-Near end-stage on 2 L oxygen
Colon polyp.
Seasonal allergies
Obesity.
Right breast cancer. .
Polycystic ovarian syndrome.
Chronic pain
Salpingo-oophorectomy 2008. Right breast cancer surgery 2022.
Plan
Respiratory decompensation from advanced underlying lung disease, ongoing smoking, recent viral infection and pneumonia, now with influenza.
Wean down supplemental oxygen as tolerated, keeping SpO2 88-95% - currently on 3L
High probability she will require some level of O2 at home; of note, she has POC/concentrator at home
She continues to report 'prolonged desat' while on commode > 7 mins and during minor activities
Dr. Valderrama observed her on commode on 03/01, minimum desat to 86% on 4L (<10s with rapid recovery)--also witnessed by friend on the phone
Dr. Valderrama coached her through rapid mouth breathing (panicking) encouraging her to take deep breaths through nose
Dr. Valderrama reviewed with her ambulatory sat eval to maybe increase to 5L with exertion for home use--she was agreeable and then refused to RT
Given that she continues to be SOB and have significant dyspnea during exertion, I raised her steroids from prednisone 40 mg daily to Solu-Medrol 40mg IV q6hr on 03/02/2024 --> she was having jitters with anxiety on this dose --> on 03/03/2024 I
lowered to 40mg IV q8hr for now and continue to monitor and wean as she clinically improves --> I reduced down to 40mg IV q12hr today (03/06/2024)
Once ready for discharge then she will need prolonged steroid taper with prednisone
Currently on Xopenex TID --> continue atrovent TID and budesonide BID
Mucolytics with mucinex
s/p symbicort 160mcg - last dose on 03/02/2024
Mucous clearing devices
Reviewed CT chest findings with patient-wide spread emphysema, mild right-sided infiltrate, and no evidence for 'fibrosis' which is when she was worried about
Influenza positive on 02/25/2024
s/p Tamiflu (02/24 - 03/01/2024)
Isolation/droplet precautions
Empiric antibiotics- s/p ceftriaxone (02/24-03/02/2024); s/p azithromycin (02/25-03/02/2024) - this is a home med so this will be continued with occasional trending of QTc (414ms this AM)
Analgesia with chronic pain syndrome per primary service
Smoking cessation counseling
Nicotine Patch if needed.
DVT prophylaxis-on Lovenox
Early mobilization
Patient is primary caregiver to her ex- who is a double lung transplant for pulmonary fibrosis - doing well since 2016
Explained advanced emphysema on objective testing-near end-stage emphysema
Patient last saw Dr. Quijano 12/11/23 and has an appointment 03/12/24 at 9 AM
Diagnostic data:
CT chest 11/15/2023, reviewed Roberto Kitchen 12/11/2023 08:32:44 AM EDT >��������Marked interval improvement in multifocal pneumonia throughout the right lung, with only a few small airspace/nodular opacities remaining. No new
infectious/inflammatory process.Stable mild upper lobe predominant centrilobular emphysema
Pulmonary function testing ( 12/11/2023� ):FEV1: 0.7 L-26% postbronchodilator FVC:2.64 L-75%FEV1/FVC ratio:27%T.12 L-118%RV: 3.3 L-170%ERV:RV/TLC ratio:54%DLCO: 5.34-22%DLCO/VA: 20%.
6 minute walk testing: ( 12/10/2023 )Pulse ox at rest on room air:98%Lowest oxygen saturation:83% after 10 minutes.� Required 2 L of supplemental oxygen to maintain pulse ox 93%.Dyspnea scale: 2/10Heart rate at rest,84Maximum heart rate:107Walk
distance:918 feet Oxygen requirements:2L
Total time spent today was 38 minutes for this encounter. Time includes reviewing laboratory test/imaging results, reviewing pertinent medical records, obtaining and reviewing medical history, performing an appropriate exam, ordering medications,
tests and procedures. Time also includes documentation of this encounter, coordinating patient care and communicating with other healthcare professionals. Total time does not include separately billed tests performed on this date of service.
Subjective Data
-
Date of Service:
Date of Service: March 06, 2024
Chief Complaint: Pulmonary Follow Up, Dyspnea Follow Up and Pneumonia Follow Up
Subjective:
Pt seen and evaluated this AM. Resting in bed in NAD. Remains on O2 at 3L/min. Feels that she is slowly improving. Denies chest pain, abd pain, N/V/f/c. Interested in showering.
Review of Systems
General: Other (negative unless mentioned above)
Objective Data
Data Reviewed
Vital Signs / I&O / Oxygen:
Vital Signs
Temp Pulse Resp BP Pulse Ox
99.1 F 105 16 146/78 90
03/06/24 15:20 03/06/24 19:58 03/06/24 19:58 03/06/24 15:20 03/06/24 19:58
Intake and Output
03/05/24 03/06/24 03/07/24
06:59 06:59 06:59
Intake Total 2280 / 2280 1180 / 1180 1440 / 1440
Balance 2280 / 2280 1180 / 1180 1440 / 1440
SaO2 90
Nasal Cannula flow liters per 3
minute
Physical Exam
General: Respiratory Distress (n), Comfortable, Chills (n) and Sweats (n)
HEENT: Normocephalic, Anicteric and Moist Mucous Membranes
Cardiovascular: S1-S2 and Peripheral Edema (n)
Respiratory: Clear, Wheeze (negative), Crackles (n), Rhonchi (n), Non-Labored Respirations, Accessory Resp Muscle Use (n), Stridor (n) and Other (Diminished breath sounds bilaterally)
GI: Soft, Non Distended, Non Tender and Normal Bowel Sounds
Neurology: AO x 3 and Tremors (n)
Skin: Warm, Dry, Cyanosis (n), Jaundice (n) and Rash (n)
Labs/Micro/Reports
Lab Data
02/29/24 05:34
02/29/24 05:34
--- NOTE | 2024-03-06 11:01 | CM ---
Reviewed the chart notes. Patient on O2 @ 3L/min continuous. CM continues to be available to patient/family and is monitoring medical plan for needs at discharge.
Plan: Discharge to home when medically stable. No needs identified at this time.
--- NOTE | 2024-03-06 13:47 | W.PN.HOSP.TC ---
Today's Communication/Plan
-
Taper steroids per pulmonary
Wean oxygen as able
Home O2 eval on the day of discharge
Assessment / Plan
Assessment / Plan
Assessment/Plan
58 y/o female with past medical history of COPD on 2 L home O2 as needed presented with hypoxia, dyspnea on exertion and fevers. Found to have influenza (symptoms began about 4 days before presentation) and a right middle lobe hazy opacity. She had
significant oxygen requirement saturating 95% on 4 L.
#Influenza A- Influenza with marked hypoxia in patient with COPD and smoking.
c/w viral pneumonia
- No PE on CT Chest
- Tamiflu 75 bid , finished 5 days course.
- s/p ceftriaxone/azithromycin
- s/p DuoNeb RTC and prn, changed to Xopenex due to distress/ coughing experienced after Duo Neb
- prednisone was dc by pulmonary on 03/02 , now on methylprednisolone IV-taper per pulmonary
- continue her home ICS/LABA/LAMA, changed to Xopenex
- supportive care
- continue monitoring on telemetry
- Added PRN low dose IV Morphine for distress/ anxiety
-- Appreciate pulmonary help
# COPD with flare from Flu
- cw steroids IV per pulm
- cw nebs, zithromax prophylactic dose
- VBG shows probable compensate chronic respiratory acidosis
- Eval for need of BiPAP
- Per pulm charting pt at near end COPD stage
#History of Right lower lobe pneumonia, community-acquired.
#Acute on chronic hypoxic respiratory failure
Currently she is requiring O2 ATC, she was using it at home at night /exertion/walking
#Endometriosis status post tubo-ovarian surgery
#Polycystic ovary syndrome
-Resumed Anastrazole (night of 02/27/24), as per patient request
#Chronic pain requiring opiate administration
added PRN dose of IV morphine also
#Tobacco use disorder, ongoing.Advised strongly to quit to prevent progression and exacerbation of her lung condition.
DVT Prophylaxis: Lovenox subq
Code Status: Full code
Anticipated Discharge: 24 - 48 hours
Subjective/Interval History
-
Date of Service: March 06, 2024
Slowly feeling improved.
[place] better after switch to IV steroids.
Currently on 3 L of oxygen. Denies any worsening of shortness of breath.
No fever or chills.
Objective Data
-
Vital Signs:
Vital Signs
Temp Pulse Resp BP Pulse Ox
97.5 F 85 18 149/76 96
03/06/24 07:30 03/06/24 07:30 03/06/24 07:30 03/06/24 07:30 03/06/24 08:04
I&O
03/05/24 03/06/24 03/07/24
06:59 06:59 06:59
Intake Total 2280 / 2280 1180 / 1180
Balance 2280 / 2280 1180 / 1180
Review of Systems
-
Cardiac: Denies Chest Pain
Abdomen/GI: Denies Abdominal Pain, Nausea, Vomiting or Diarrhea
Neuro: Denies Dizzy
Physical Exam
-
General: No Apparent Distress
HEENT: Moist Mucous Membranes
Respiratory: Non Labored Respirations and Decreased Breath Sounds (In general); Negative Wheezes or Accessory Resp Muscle Use
Cardiac: Regular Rhythm and S1/S2
Neuro: AO x 3; Negative Tremors
Psych: Calm
[2024-03-06 15:20] VITALS: BP 146/78
[2024-03-06] MEDS: LOVENOX 40 MG SC (17:31)
[2024-03-06] MEDS: ARIMIDEX 1 MG PO (22:38)
[2024-03-06] MEDS: REFRESH CELLUVISC GEL 1 DROPS BOTH EYES (22:38)
[2024-03-06] MEDS: MORPHINE SULFATE IV (22:43)
[2024-03-06] MEDS: MELATONIN 5 MG PO (22:43)
[2024-03-06 23:00] VITALS: BP 137/82
[2024-03-07] MEDS: ZYRTEC 10 MG PO (05:59)
[2024-03-07] MEDS: PULMICORT 0.5 MG INH ×2 (07:23→21:15)
[2024-03-07] MEDS: ATROVENT NEBULES 0.5 MG INH ×3 (07:23→21:15)
[2024-03-07] MEDS: XOPENEX 0.63 MG INHALANT SOLUTION INH ×3 (07:23→21:15)
[2024-03-07 07:25] VITALS: BP 137/81
[2024-03-07] MEDS: MUCINEX 1200 MG PO ×2 (08:33→20:21)
[2024-03-07] MEDS: NORCO 7.5/325 1 TABLET PO (08:33)
[2024-03-07] MEDS: SOLU-MEDROL PF 40 MG IV ×2 (08:33→20:21)
[2024-03-07] MEDS: ZITHROMAX 250 MG PO (08:33)
--- NOTE | 2024-03-07 09:45 | W.PN.PUL3 ---
Today's Communication / Plan
-
Yesterday I decreased dose of steroids to Solu-Medrol 40 mg IV q12hr from 40mg IV q8hr
Monitor for hyperglycemia
Continue supplemental O2 with goal SpO2 88-95%
Home O2 eval prior to discharge
Prolonged prednisone taper upon discharge
Anxiety is an issue --> continue prn hydroxyzine and prn morphine
If patient does have severe sudden shortness of breath then would first treat with prn morphine, as she says she has had that before and it 'really helped' her breathing the most
ABG on morning of 03/05 showed chronic hypercapnia with alkalemia, likely due to over-breathing in setting of metabolic alkalosis; continue to check VBG occasionally
Atrovent/xopenex and budesonide
Continue zithromax (home med) and occasionally check EKG to trend QTc
Discharge planning per team with outpatient office follow up - hopefully she will be ready for discharge by Saturday
Assessment
-
58-year-old female smoker with history of COPD followed by Dr. Quijano recently discharged from the hospital 09/24/23, presents with progressive shortness of breath, dyspnea, flulike illness noted to have flu and COPD exacerbation-pulmonary consulted
for COPD exacerbation/influenza 02/27/24.
Impression:
Acute hypoxemic respiratory failure, currently on 3L NC
UOIC-emi-qalkc Gold stage IV with acute exacerbation in setting of Flu A
Influenza A diagnosed on 02/25/2024
Recent right lower lobe community acquired pneumonia
Conditions present prior to admission:
Hyperlipidemia.
Diverticulosis.
GERD.
COPD-Near end-stage on 2 L oxygen
Colon polyp.
Seasonal allergies
Obesity.
Right breast cancer. .
Polycystic ovarian syndrome.
Chronic pain
Salpingo-oophorectomy 2008. Right breast cancer surgery 2022.
Plan
Respiratory decompensation from advanced underlying lung disease, ongoing smoking, recent viral infection and pneumonia, now with influenza.
Wean down supplemental oxygen as tolerated, keeping SpO2 88-95% - currently on 3L
High probability she will require some level of O2 at home; of note, she has POC/concentrator at home
She continues to report 'prolonged desat' while on commode > 7 mins and during minor activities
Dr. Valderrama observed her on commode on 03/01, minimum desat to 86% on 4L (<10s with rapid recovery)--also witnessed by friend on the phone
Dr. Valderrama coached her through rapid mouth breathing (panicking) encouraging her to take deep breaths through nose
Dr. Valderrama reviewed with her ambulatory sat eval to maybe increase to 5L with exertion for home use--she was agreeable and then refused to RT
Given that she continues to be SOB and have significant dyspnea during exertion, I raised her steroids from prednisone 40 mg daily to Solu-Medrol 40mg IV q6hr on 03/02/2024 --> she was having jitters with anxiety on this dose --> on 03/03/2024 I
lowered to 40mg IV q8hr for now and continue to monitor and wean as she clinically improves --> I reduced down to 40mg IV q12hr on 03/06/2024
Once ready for discharge then she will need prolonged steroid taper with prednisone starting at 60mg daily and reducing by 10mg every 5th day until off; if she is going to remain on 20mg or greater for >1 month then she will need PCP ppx
Currently on Xopenex TID --> continue atrovent TID and budesonide BID
Mucolytics with mucinex
s/p symbicort 160mcg - last dose on 03/02/2024
Mucous clearing devices
Reviewed CT chest findings with patient-wide spread emphysema, mild right-sided infiltrate, and no evidence for 'fibrosis' which is when she was worried about
Influenza positive on 02/25/2024
s/p Tamiflu (02/24 - 03/01/2024)
Isolation/droplet precautions
Empiric antibiotics- s/p ceftriaxone (02/24-03/02/2024); s/p azithromycin (02/25-03/02/2024) - this is a home med so this will be continued with occasional trending of QTc (414ms on 03/05/2024)
Analgesia with chronic pain syndrome per primary service
Smoking cessation counseling
Nicotine Patch if needed.
DVT prophylaxis-on Lovenox
Early mobilization
Patient is primary caregiver to her ex- who is a double lung transplant for pulmonary fibrosis - doing well since 2016
Explained advanced emphysema on objective testing-near end-stage emphysema
Patient last saw Dr. Quijano 12/11/23 and has an appointment 03/12/24 at 9 AM
Diagnostic data:
CT chest 11/15/2023, reviewed Roberto Kitchen 12/11/2023 08:32:44 AM EDT >��������Marked interval improvement in multifocal pneumonia throughout the right lung, with only a few small airspace/nodular opacities remaining. No new
infectious/inflammatory process.Stable mild upper lobe predominant centrilobular emphysema
Pulmonary function testing ( 12/11/2023� ):FEV1: 0.7 L-26% postbronchodilator FVC:2.64 L-75%FEV1/FVC ratio:27%T.12 L-118%RV: 3.3 L-170%ERV:RV/TLC ratio:54%DLCO: 5.34-22%DLCO/VA: 20%.
6 minute walk testing: ( 12/10/2023 )Pulse ox at rest on room air:98%Lowest oxygen saturation:83% after 10 minutes.� Required 2 L of supplemental oxygen to maintain pulse ox 93%.Dyspnea scale: 2/10Heart rate at rest,84Maximum heart rate:107Walk
distance:918 feet Oxygen requirements:2L
Total time spent today was 36 minutes for this encounter. Time includes reviewing laboratory test/imaging results, reviewing pertinent medical records, obtaining and reviewing medical history, performing an appropriate exam, ordering medications,
tests and procedures. Time also includes documentation of this encounter, coordinating patient care and communicating with other healthcare professionals. Total time does not include separately billed tests performed on this date of service.
Subjective Data
-
Date of Service:
Date of Service: March 07, 2024
Chief Complaint: Pulmonary Follow Up, Dyspnea Follow Up and Pneumonia Follow Up
Subjective:
Patient seen earlier in the day � late note entry. Patient was seen earlier this morning and she had a coughing fit earlier, coughing up a 'neon-green' piece of phlegm. She felt a little bit better after this was coughed up. Currently on 3 L/min
nasal cannula saturating 94% with heart rate 93. She denies nausea, diarrhea, fevers or chills.
Review of Systems
General: Other (Negative unless mentioned above)
Objective Data
Data Reviewed
Vital Signs / I&O / Oxygen:
Vital Signs
Temp Pulse Resp BP Pulse Ox
98.7 F 83 16 137/81 97
03/06/24 23:00 03/07/24 07:28 03/07/24 07:28 03/07/24 07:25 03/07/24 07:28
Intake and Output
03/06/24 03/07/24 03/08/24
06:59 06:59 06:59
Intake Total 1180 / 1180 1440 / 1440
Balance 1180 / 1180 1440 / 1440
SaO2 97
Nasal Cannula flow liters per 3
minute
Physical Exam
General: Respiratory Distress (n), Comfortable, Chills (n) and Sweats (n)
HEENT: Normocephalic, Anicteric and Moist Mucous Membranes
Cardiovascular: S1-S2 and Peripheral Edema (n)
Respiratory: Clear, Wheeze (negative), Crackles (n), Rhonchi (n), Non-Labored Respirations, Accessory Resp Muscle Use (n), Stridor (n) and Other (Diminished breath sounds bilaterally)
GI: Soft, Non Distended, Non Tender and Normal Bowel Sounds
Neurology: AO x 3 and Tremors (n)
Skin: Warm, Dry, Cyanosis (n), Jaundice (n) and Rash (n)
Labs/Micro/Reports
Lab Data
02/29/24 05:34
02/29/24 05:34
[2024-03-07 11:30] VITALS: BP 153/85
[2024-03-07 15:06] VITALS: BP 152/88
--- NOTE | 2024-03-07 15:07 | W.PN.HOSP.TC ---
Today's Communication/Plan
-
Wean O2 as able
Home O2 eval at the time of discharge
Wean steroids per pulm
Assessment / Plan
Assessment / Plan
Assessment/Plan
58 y/o female with past medical history of COPD on 2 L home O2 as needed presented with hypoxia, dyspnea on exertion and fevers. Found to have influenza (symptoms began about 4 days before presentation) and a right middle lobe hazy opacity. She had
significant oxygen requirement saturating 95% on 4 L.
#Influenza A- Influenza with marked hypoxia in patient with COPD and smoking.
c/w viral pneumonia
- No PE on CT Chest
- Tamiflu 75 bid , finished 5 days course.
- s/p ceftriaxone/azithromycin
- s/p DuoNeb RTC and prn, changed to Xopenex due to distress/ coughing experienced after Duo Neb
- prednisone was dc by pulmonary on 03/02 , now on methylprednisolone IV-taper per pulmonary
- continue her home ICS/LABA/LAMA, changed to Xopenex
- supportive care
- continue monitoring on telemetry
- Added PRN low dose IV Morphine for distress/ anxiety
-- Appreciate pulmonary help
# COPD with flare from Flu
- cw steroids IV per pulm
- cw nebs, zithromax prophylactic dose
- VBG shows probable compensate chronic respiratory acidosis
- Eval for need of BiPAP
- Per pulm charting pt at near end COPD stage
#History of Right lower lobe pneumonia, community-acquired.
#Acute on chronic hypoxic respiratory failure
Currently she is requiring O2 ATC, she was using it at home at night /exertion/walking
#Endometriosis status post tubo-ovarian surgery
#Polycystic ovary syndrome
-Resumed Anastrazole (night of 02/27/24), as per patient request
#Chronic pain requiring opiate administration
added PRN dose of IV morphine also
#Tobacco use disorder, ongoing.Advised strongly to quit to prevent progression and exacerbation of her lung condition.
DVT Prophylaxis: Lovenox subq
Code Status: Full code
Anticipated Discharge: 24 - 48 hours
Subjective/Interval History
-
Date of Service: March 07, 2024
Slow improvement generally.
Still getting winded with exertion.
Not short of breath at rest.
Feeling tired today. She is not sure how many hours of sleep she got but it is interrupted.
Tolerating diet without nausea vomiting.
No fever chills.
Objective Data
-
Vital Signs:
Vital Signs
Temp Pulse Resp BP Pulse Ox
98.7 F 95 16 137/81 92
03/06/24 23:00 03/07/24 14:15 03/07/24 14:15 03/07/24 07:25 03/07/24 14:15
I&O
03/06/24 03/07/24 03/08/24
06:59 06:59 06:59
Intake Total 1180 / 1180 1440 / 1440
Balance 1180 / 1180 1440 / 1440
Physical Exam
-
HEENT: Moist Mucous Membranes
Respiratory: Non Labored Respirations and Decreased Breath Sounds (in general); Negative Wheezes or Accessory Resp Muscle Use
Cardiac: Regular Rhythm and S1/S2
GI: Soft
Neuro: AO x 3
[2024-03-07] MEDS: LOVENOX 40 MG SC (18:28)
[2024-03-07] MEDS: MORPHINE SULFATE 2 MG IV (22:06)
[2024-03-07] MEDS: MELATONIN 5 MG PO (22:07)
[2024-03-07] MEDS: REFRESH CELLUVISC GEL 1 DROPS BOTH EYES (22:07)
[2024-03-07] MEDS: ARIMIDEX 1 MG PO (22:08)
[2024-03-07 23:30] VITALS: BP 153/85
[2024-03-08] MEDS: ZYRTEC 10 MG PO (05:43)
[2024-03-08 06:35] LABS: Hematocrit 46.7 % (37.0-47.0); Hemoglobin 15.3 g/dL (12.0-16.0); Mean Corp Hgb Conc. 32.8 g/dL (33.0-37.0); Mean Corpuscular Hgb 29.7 pg (27.0-31.0); Mean Corpuscular Volume 90.7 fL (81.0-99.0); Mean Platelet Volume 9.1 fL (7.4-10.4); Platelet Count 420 10^3/uL (130-400); Red Blood Cell Count 5.15 10^6/uL (4.20-5.40); Red Cell Dist. Width 12.5 % (11.5-14.5); White Blood Cell Count 15.4 10^3/uL (4.8-10.8)
[2024-03-08 06:56] LABS: Blood Urea Nitrogen 20 mg/dl (7-17); Calcium 9.4 mg/dl (8.4-10.2); Carbon Dioxide 39 mmol/L (22-30); Chloride 92 mmol/L (98-107); Estimated Creatinine Clearance 118 ml/min; Glucose 138 mg/dl (70-99); Potassium 5.3 mmol/L (3.5-5.1); Sodium 138 mmol/L (135-145); eGFR > 60.00
[2024-03-08 07:30] VITALS: BP 133/80
[2024-03-08] MEDS: XOPENEX 0.63 MG INHALANT SOLUTION INH ×3 (07:59→19:33)
[2024-03-08] MEDS: ATROVENT NEBULES 0.5 MG INH ×3 (07:59→19:33)
[2024-03-08] MEDS: PULMICORT 0.5 MG INH ×2 (07:59→19:33)
[2024-03-08] MEDS: MUCINEX 1200 MG PO ×2 (08:42→20:43)
[2024-03-08] MEDS: SOLU-MEDROL PF 40 MG IV ×2 (08:42→20:45)
[2024-03-08] MEDS: NORCO 7.5/325 1 TABLET PO (08:42)
[2024-03-08] MEDS: ZITHROMAX 250 MG PO (08:42)
--- NOTE | 2024-03-08 09:16 | W.PN.PUL3 ---
Today's Communication / Plan
-
On 03/06/2024 I decreased dose of steroids to Solu-Medrol 40 mg IV q12hr from 40mg IV q8hr
Monitor for hyperglycemia
Continue supplemental O2 with goal SpO2 88-95%
Home O2 eval prior to discharge
Prolonged prednisone taper upon discharge
Anxiety is an issue --> continue prn hydroxyzine and prn morphine
If patient does have severe sudden shortness of breath then would first treat with prn morphine, as she says she has had that before and it 'really helped' her breathing the most
ABG on morning of 03/05 showed chronic hypercapnia with alkalemia, likely due to over-breathing in setting of metabolic alkalosis; continue to check VBG occasionally
Atrovent/xopenex and budesonide
Continue zithromax (home med) and occasionally check EKG to trend QTc
Discharge planning per team with outpatient office follow up - hopefully she will be ready for discharge by tomorrow (03/09/2024) which she is okay with
Assessment
-
58-year-old female smoker with history of COPD followed by Dr. Quijano recently discharged from the hospital 09/24/23, presents with progressive shortness of breath, dyspnea, flulike illness noted to have flu and COPD exacerbation-pulmonary consulted
for COPD exacerbation/influenza 02/27/24.
Impression:
Acute hypoxemic respiratory failure, currently on 2L NC
UULL-hgr-pwhid Gold stage IV with acute exacerbation in setting of Flu A
Influenza A diagnosed on 02/25/2024
Recent right lower lobe community acquired pneumonia
Conditions present prior to admission:
Hyperlipidemia.
Diverticulosis.
GERD.
COPD-Near end-stage on 2 L oxygen
Colon polyp.
Seasonal allergies
Obesity.
Right breast cancer. .
Polycystic ovarian syndrome.
Chronic pain
Salpingo-oophorectomy 2008. Right breast cancer surgery 2022.
Plan
Respiratory decompensation from advanced underlying lung disease, ongoing smoking, recent viral infection and pneumonia, now with influenza.
Wean down supplemental oxygen as tolerated, keeping SpO2 88-95% - currently on 2L
High probability she will require some level of O2 at home; of note, she has POC/concentrator at home
She continues to report 'prolonged desat' while on commode > 7 mins and during minor activities
Dr. Valderrama observed her on commode on 03/01, minimum desat to 86% on 4L (<10s with rapid recovery)--also witnessed by friend on the phone
Dr. Valderrama coached her through rapid mouth breathing (panicking) encouraging her to take deep breaths through nose
Dr. Valderrama reviewed with her ambulatory sat eval to maybe increase to 5L with exertion for home use--she was agreeable and then refused to RT
Given that she continues to be SOB and have significant dyspnea during exertion, I raised her steroids from prednisone 40 mg daily to Solu-Medrol 40mg IV q6hr on 03/02/2024 --> she was having jitters with anxiety on this dose --> on 03/03/2024 I
lowered to 40mg IV q8hr --> I reduced down to 40mg IV q12hr on 03/06/2024
Once ready for discharge then she will need prolonged steroid taper with prednisone starting at 60mg daily and reducing by 10mg every 5th day until off; if she is going to remain on 20mg or greater for >1 month then she will need PCP ppx
Currently on Xopenex TID --> continue atrovent TID and budesonide BID
Mucolytics with mucinex
s/p symbicort 160mcg - last dose on 03/02/2024
Mucous clearing devices
Reviewed CT chest findings with patient-wide spread emphysema, mild right-sided infiltrate, and no evidence for 'fibrosis' which is when she was worried about
Influenza positive on 02/25/2024
s/p Tamiflu (02/24 - 03/01/2024)
Isolation/droplet precautions
Empiric antibiotics- s/p ceftriaxone (02/24-03/02/2024); s/p azithromycin (02/25-03/02/2024) - this is a home med so this will be continued with occasional trending of QTc (414ms on 03/05/2024)
Analgesia with chronic pain syndrome per primary service
Smoking cessation counseling
Nicotine Patch if needed.
DVT prophylaxis-on Lovenox
Early mobilization
Patient is primary caregiver to her ex- who is a double lung transplant for pulmonary fibrosis - doing well since 2016
Explained advanced emphysema on objective testing-near end-stage emphysema
Patient last saw Dr. Quijano 12/11/23 and has an appointment 03/12/24 at 9 AM
Diagnostic data:
CT chest 11/15/2023, reviewed Roberto Kitchen 12/11/2023 08:32:44 AM EDT >��������Marked interval improvement in multifocal pneumonia throughout the right lung, with only a few small airspace/nodular opacities remaining. No new
infectious/inflammatory process.Stable mild upper lobe predominant centrilobular emphysema
Pulmonary function testing ( 12/11/2023� ):FEV1: 0.7 L-26% postbronchodilator FVC:2.64 L-75%FEV1/FVC ratio:27%T.12 L-118%RV: 3.3 L-170%ERV:RV/TLC ratio:54%DLCO: 5.34-22%DLCO/VA: 20%.
6 minute walk testing: ( 12/10/2023 )Pulse ox at rest on room air:98%Lowest oxygen saturation:83% after 10 minutes.� Required 2 L of supplemental oxygen to maintain pulse ox 93%.Dyspnea scale: 2/10Heart rate at rest,84Maximum heart rate:107Walk
distance:918 feet Oxygen requirements:2L
Total time spent today was 39 minutes for this encounter. Time includes reviewing laboratory test/imaging results, reviewing pertinent medical records, obtaining and reviewing medical history, performing an appropriate exam, ordering medications,
tests and procedures. Time also includes documentation of this encounter, coordinating patient care and communicating with other healthcare professionals. Total time does not include separately billed tests performed on this date of service.
Subjective Data
-
Date of Service:
Date of Service: March 08, 2024
Chief Complaint: Pulmonary Follow Up, Dyspnea Follow Up and Pneumonia Follow Up
Subjective:
Patient seen and evaluated today at bedside earlier in the afternoon (late note entry). She showered this morning and felt a little short of breath afterwards. Supplemental O2 lowered to 2 L/min and she is saturating 90%. She feels a little more
winded on this current setting. She says she also felt sweaty last night, however she was afebrile. She currently denies chest pain, MARQUEZ, abdominal pain, nausea, vomiting, fevers or chills.
Review of Systems
General: Other (Negative unless mentioned above)
Objective Data
Data Reviewed
Vital Signs / I&O / Oxygen:
Vital Signs
Temp Pulse Resp BP Pulse Ox
98.8 F 110 24 133/80 93
03/08/24 07:30 03/08/24 08:00 03/08/24 08:00 03/08/24 07:30 03/08/24 08:00
Intake and Output
03/07/24 03/08/24 03/09/24
06:59 06:59 06:59
Intake Total 1440 / 1440 1000 / 1000
Balance 1440 / 1440 1000 / 1000
SaO2 93
Nasal Cannula flow liters per 3
minute
Physical Exam
General: Respiratory Distress (n), Comfortable, Chills (n) and Sweats (n)
HEENT: Normocephalic, Anicteric and Moist Mucous Membranes
Cardiovascular: S1-S2 and Peripheral Edema (n)
Respiratory: Clear, Wheeze (negative), Crackles (n), Rhonchi (n), Non-Labored Respirations, Accessory Resp Muscle Use (n), Stridor (n) and Other (Diminished breath sounds bilaterally)
GI: Soft, Non Distended, Non Tender and Normal Bowel Sounds
Neurology: AO x 3 and Tremors (n)
Skin: Warm, Dry, Cyanosis (n), Jaundice (n) and Rash (n)
Labs/Micro/Reports
Lab Data
03/08/24 05:35
03/08/24 05:35
--- NOTE | 2024-03-08 13:23 | CM ---
Patient pending home O2 assessment to determine level of home O2 needed. Patient plan is for home with family supports. CM will continue to follow for discharge planning needs.
Plan;home with home O2 watch for change in prior level of O2
--- NOTE | 2024-03-08 13:38 | W.PN.HOSP.TC ---
Today's Communication/Plan
-
CW current tx
Wean steroids per pulm
Home O2 eval
DC planning
Assessment / Plan
Assessment / Plan
Assessment/Plan
58 y/o female with past medical history of COPD on 2 L home O2 as needed presented with hypoxia, dyspnea on exertion and fevers. Found to have influenza (symptoms began about 4 days before presentation) and a right middle lobe hazy opacity. She had
significant oxygen requirement saturating 95% on 4 L.
#Influenza A- Influenza with marked hypoxia in patient with COPD and smoking.
c/w viral pneumonia
- No PE on CT Chest
- Tamiflu 75 bid , finished 5 days course.
- s/p ceftriaxone/azithromycin
- s/p DuoNeb RTC and prn, changed to Xopenex due to distress/ coughing experienced after Duo Neb
- prednisone was dc by pulmonary on 03/02 , now on methylprednisolone IV-taper per pulmonary
- continue her home ICS/LABA/LAMA, changed to Xopenex
- supportive care
- continue monitoring on telemetry
- Added PRN low dose IV Morphine for distress/ anxiety
-- Appreciate pulmonary help
- Check for home O2 need in am
- Suspect wbc elevation is from steroids .Afeb. Check in am
# COPD with flare from Flu
- cw steroids IV per pulm
- cw nebs, zithromax prophylactic dose
- VBG shows probable compensate chronic respiratory acidosis
- Per pulm charting pt at near end COPD stage
#History of Right lower lobe pneumonia, community-acquired.
#Acute on chronic hypoxic respiratory failure
Currently she is requiring O2 ATC, she was using it at home at night /exertion/walking
#Endometriosis status post tubo-ovarian surgery
#Polycystic ovary syndrome
-Resumed Anastrazole (night of 02/27/24), as per patient request
#Chronic pain requiring opiate administration
added PRN dose of IV morphine also
#Tobacco use disorder, ongoing.Advised strongly to quit to prevent progression and exacerbation of her lung condition.
DVT Prophylaxis: Lovenox subq
Code Status: Full code
Anticipated Discharge: Within 24 hours
Subjective/Interval History
-
Date of Service: March 08, 2024
Slow improvement with the breathing and respiratory symptoms. Today she was able to take a shower after 2 weeks but it took her a lot to get the shower done. She was short of breath with activity.
No nausea vomiting.
No fever chills.
No chest pain.
Objective Data
-
Labs:
Laboratory Results
03/08/24
05:35
WBC 15.4 H
Hgb 15.3
Hct 46.7
Plt Count 420 H
Sodium 138
Potassium 5.3 H
Chloride 92 L
Carbon Dioxide 39 H
BUN 20 H
Creatinine 0.6
Glucose 138 H
Calcium 9.4
Vital Signs:
Vital Signs
Temp Pulse Resp BP Pulse Ox
98.8 F 110 24 133/80 95
03/08/24 07:30 03/08/24 08:00 03/08/24 08:00 03/08/24 07:30 03/08/24 08:32
I&O
03/07/24 03/08/24 03/09/24
06:59 06:59 06:59
Intake Total 1440 / 1440 1000 / 1000
Balance 1440 / 1440 1000 / 1000
Physical Exam
-
General: Comfortable (at rest)
HEENT: Moist Mucous Membranes
Respiratory: Non Labored Respirations and Decreased Breath Sounds; Negative Wheezes or Accessory Resp Muscle Use
Cardiac: Regular Rhythm and S1/S2
Neuro: AO x 3
Psych: Calm
Data Reviewed
-
Labs: Labs Reviewed by me
[2024-03-08 15:25] VITALS: BP 122/72
[2024-03-08] MEDS: LOVENOX 40 MG SC (17:07)
[2024-03-08] MEDS: HYDROCORTISONE 1% CREAM 1 APPLIC TOPICAL (20:44)
[2024-03-08] MEDS: MORPHINE SULFATE 2 MG IV (20:54)
[2024-03-08] MEDS: REFRESH CELLUVISC GEL 1 DROPS BOTH EYES (22:00)
[2024-03-08] MEDS: ARIMIDEX 1 MG PO (22:01)
[2024-03-08] MEDS: MELATONIN 5 MG PO (22:01)
[2024-03-08] MEDS: PEPCID 20 MG PO (22:05)
[2024-03-08 23:24] VITALS: BP 143/76
[2024-03-09] MEDS: ZYRTEC 10 MG PO (06:36)
[2024-03-09 07:05] VITALS: BP 140/85
[2024-03-09] MEDS: ATROVENT NEBULES 0.5 MG INH ×3 (07:54→19:02)
[2024-03-09] MEDS: XOPENEX 0.63 MG INHALANT SOLUTION INH ×3 (07:55→19:02)
[2024-03-09] MEDS: PULMICORT 0.5 MG INH ×2 (07:55→19:02)
[2024-03-09 08:22] LABS: Hematocrit 45.7 % (37.0-47.0); Hemoglobin 14.6 g/dL (12.0-16.0); Mean Corp Hgb Conc. 31.9 g/dL (33.0-37.0); Mean Corpuscular Hgb 29.3 pg (27.0-31.0); Mean Corpuscular Volume 91.8 fL (81.0-99.0); Mean Platelet Volume 8.9 fL (7.4-10.4); Platelet Count 382 10^3/uL (130-400); Red Blood Cell Count 4.98 10^6/uL (4.20-5.40); Red Cell Dist. Width 12.7 % (11.5-14.5); White Blood Cell Count 15.3 10^3/uL (4.8-10.8)
[2024-03-09] MEDS: SOLU-MEDROL PF 40 MG IV ×2 (08:26→21:21)
[2024-03-09] MEDS: NORCO 7.5/325 1 TABLET PO (08:26)
[2024-03-09] MEDS: MUCINEX 1200 MG PO ×2 (08:26→20:29)
[2024-03-09] MEDS: ZITHROMAX 250 MG PO (08:32)
[2024-03-09] MEDS: HYDROCORTISONE 1% CREAM 1 APPLIC TOPICAL ×2 (08:33→21:24)
[2024-03-09 08:45] LABS: Blood Urea Nitrogen 21 mg/dl (7-17); Calcium 9.3 mg/dl (8.4-10.2); Carbon Dioxide 37 mmol/L (22-30); Chloride 93 mmol/L (98-107); Estimated Creatinine Clearance 118 ml/min; Glucose 122 mg/dl (70-99); Potassium 4.9 mmol/L (3.5-5.1); Sodium 136 mmol/L (135-145); eGFR > 60.00
[2024-03-09] MEDS: MORPHINE SULFATE 2 MG IV ×2 (10:21→23:03)
--- NOTE | 2024-03-09 12:56 | W.PN.PUL3 ---
Today's Communication / Plan
-
Prior home O2 eval showing need for 3L with exertion, she needs 2L at baseline w/ rest
Prednisone transition tomorrow
Defer to primary service for pain medication regiment
She has appt to see Dr Quijano this 03/12, we discussed discharge to meet this appt, but otherwise will need to reschedule
Discharge planning per team
We will see as needed
Assessment
-
58-year-old female smoker with history of COPD followed by Dr. Quijano recently discharged from the hospital 09/24/23, presents with progressive shortness of breath, dyspnea, flulike illness noted to have flu and COPD exacerbation-pulmonary consulted
for COPD exacerbation/influenza 02/27/24.
Impression:
Acute hypoxemic respiratory failure, currently on 2L NC
[id number] Gold stage IV with acute exacerbation in setting of Flu A
Influenza A diagnosed on 02/25/2024
Recent right lower lobe community acquired pneumonia
Conditions present prior to admission:
Hyperlipidemia.
Diverticulosis.
GERD.
COPD-Near end-stage on 2 L oxygen
Colon polyp.
Seasonal allergies
Obesity.
Right breast cancer.
Polycystic ovarian syndrome.
Chronic pain
Salpingo-oophorectomy 2008. Right breast cancer surgery 2022.
Plan
Respiratory decompensation from advanced underlying lung disease, ongoing smoking, recent viral infection and pneumonia, now with influenza.
Wean down supplemental oxygen as tolerated, keeping SpO2 88-95% - currently on 2L
High probability she will require some level of O2 at home; of note, she has POC/concentrator at home
She continues to report 'prolonged desat' while on commode > 7 mins and during minor activities
Dr. Valderrama observed her on commode on 03/01, minimum desat to 86% on 4L (<10s with rapid recovery)--also witnessed by friend on the phone
Dr. Valderrama coached her through rapid mouth breathing (panicking) encouraging her to take deep breaths through nose
Dr. Valderrama reviewed with her ambulatory sat eval to maybe increase to 5L with exertion for home use--she was agreeable and then refused to RT
Reports that she is now ready for home O2 eval but denies ever requested PT eval
I have no knowledge of this interaction but she seemed accusatory of many things today on my account
Given that she continues to be SOB and have significant dyspnea during exertion, I raised her steroids from prednisone 40 mg daily to Solu-Medrol 40mg IV q6hr on 03/02/2024 --> she was having jitters with anxiety on this dose --> on 03/03/2024 I
lowered to 40mg IV q8hr --> reduced down to 40mg IV q12hr on 03/06/2024
She was agreeable to plan to transition to PO prednisone tomorrow as planned by Seymour
Currently on Xopenex TID --> continue atrovent TID and budesonide BID
Mucolytics with mucinex
s/p symbicort 160mcg - last dose on 03/02/2024
Mucous clearing devices
Reviewed CT chest findings with patient-wide spread emphysema, mild right-sided infiltrate, and no evidence for 'fibrosis' which is when she was worried about
Influenza positive on 02/25/2024
s/p Tamiflu (02/24 - 03/01/2024)
Isolation/droplet precautions
Empiric antibiotics- s/p ceftriaxone (02/24-03/02/2024); s/p azithromycin (02/25-03/02/2024) - this is a home med so this will be continued with occasional trending of QTc (414ms on 03/05/2024)
Analgesia with chronic pain syndrome per primary service
Morphine IV was ordered by primary service, she is now asking for oxycodone which I am not recommending
She is now angry that I am not giving her a med to 'open her chest'
VBG in past ordered, this is showing chronic CO2 retention
Can defer to Dr Quijano for outpatient treatment, work up
Suspect NUNU, recommend OP sleep study
Smoking cessation counseling
Nicotine Patch if needed
DVT prophylaxis-on Lovenox
Early mobilization
Patient is primary caregiver to her ex- who is a double lung transplant for pulmonary fibrosis - doing well since 2016
Explained advanced emphysema on objective testing-near end-stage emphysema
Patient last saw Dr. Quijano 12/11/23 and has an appointment 03/12/24 at 9 AM
She has made it abundantly clear that she does not want to see me, so we can plan for d/c tomorrow per plan
I will see as needed
Diagnostic data:
CT chest 11/15/2023, reviewed Roberto Kitchen 12/11/2023 08:32:44 AM EDT >��Marked interval improvement in multifocal pneumonia throughout the right lung, with only a few small airspace/nodular opacities remaining. No new
infectious/inflammatory process.Stable mild upper lobe predominant centrilobular emphysema
Pulmonary function testing ( 12/11/2023� ):FEV1: 0.7 L-26% postbronchodilator FVC:2.64 L-75%FEV1/FVC ratio:27%T.12 L-118%RV: 3.3 L-170%ERV:RV/TLC ratio:54%DLCO: 5.34-22%DLCO/VA: 20%.
6 minute walk testing: ( 12/10/2023 )Pulse ox at rest on room air:98%Lowest oxygen saturation:83% after 10 minutes.� Required 2 L of supplemental oxygen to maintain pulse ox 93%.Dyspnea scale: 2/10Heart rate at rest,84Maximum heart rate:107Walk
distance:918 feet Oxygen requirements:2L
-----
Total time spent today was 51 minutes for this encounter. Time includes reviewing laboratory test/imaging results, reviewing pertinent medical records, obtaining and reviewing medical history, performing an appropriate exam, ordering medications,
tests and procedures. Time also includes documentation of this encounter, coordinating patient care and communicating with other healthcare professionals. Total time does not include separately billed tests performed on this date of service.
Subjective Data
-
Date of Service:
Date of Service: March 09, 2024
Chief Complaint: Pulmonary Follow Up, Dyspnea Follow Up and Pneumonia Follow Up
Subjective:
Weaned down to 2.5L but she reports ongoing 'desaturation' into the 60s
Angry today, did not want to do PT, asking for oxycodone
Objective Data
Data Reviewed
Vital Signs / I&O / Oxygen:
Vital Signs
Temp Pulse Resp BP Pulse Ox
98.0 F 105 20 140/85 93
03/09/24 07:05 03/09/24 08:01 03/09/24 08:01 03/09/24 07:05 03/09/24 08:01
Intake and Output
03/08/24 03/09/24 03/10/24
06:59 06:59 06:59
Intake Total 1000 / 1000 2119
Balance 1000 / 1000 2119
SaO2 93
Nasal Cannula flow liters per 2.5
minute
Physical Exam
General: Respiratory Distress (n), Comfortable, Chills (n) and Sweats (n)
HEENT: Normocephalic, Anicteric and Moist Mucous Membranes
Cardiovascular: S1-S2 and Peripheral Edema (n)
Respiratory: Clear, Wheeze (negative), Crackles (n), Rhonchi (n), Non-Labored Respirations, Accessory Resp Muscle Use (n), Stridor (n) and Other (Diminished breath sounds bilaterally)
GI: Soft, Non Distended, Non Tender and Normal Bowel Sounds
Neurology: AO x 3 and Tremors (n)
Skin: Warm, Dry, Cyanosis (n), Jaundice (n) and Rash (n)
Labs/Micro/Reports
Lab Data
03/09/24 07:22
03/09/24 07:21
--- NOTE | 2024-03-09 14:15 | W.PN.HOSP.TC ---
Today's Communication/Plan
-
Wean steroids per pulmonary
DC planning
Assessment / Plan
Assessment / Plan
Assessment/Plan
58 y/o female with past medical history of COPD on 2 L home O2 as needed presented with hypoxia, dyspnea on exertion and fevers. Found to have influenza (symptoms began about 4 days before presentation) and a right middle lobe hazy opacity. She had
significant oxygen requirement saturating 95% on 4 L.
#Influenza A- Influenza with marked hypoxia in patient with COPD and smoking.
c/w viral pneumonia
- No PE on CT Chest
- Tamiflu 75 bid , finished 5 days course.
- s/p ceftriaxone/azithromycin
- s/p DuoNeb RTC and prn, changed to Xopenex due to distress/ coughing experienced after Duo Neb
- prednisone was dc by pulmonary on 03/02 , now on methylprednisolone IV-taper per pulmonary
- continue her home ICS/LABA/LAMA, changed to Xopenex
- Added PRN low dose IV Morphine for distress/ anxiety
- Check for home O2 need prior to discharge
- Suspect wbc elevation is from steroids .Afeb. Stable WBC.
# COPD with flare from Flu
- cw steroids IV per pulm
- cw nebs, zithromax prophylactic dose
- VBG shows probable compensate chronic respiratory acidosis
- Per pulm charting pt at near end COPD stage
#History of Right lower lobe pneumonia, community-acquired.
#Acute on chronic hypoxic respiratory failure
Currently she is requiring O2 ATC, she was using it at home at night /exertion/walking
#Endometriosis status post tubo-ovarian surgery
#Polycystic ovary syndrome
-Resumed Anastrazole (night of 02/27/24), as per patient request
#Chronic pain requiring opiate administration
added PRN dose of IV morphine also
#Tobacco use disorder, ongoing.Advised strongly to quit to prevent progression and exacerbation of her lung condition.
DVT Prophylaxis: Lovenox subq
Code Status: Full code
Anticipated Discharge: Within 24 hours
Subjective/Interval History
-
Date of Service: March 09, 2024
Feeling slowly improved. Less exertional shortness of breath. Still requiring oxygen.
Objective Data
-
Labs:
Laboratory Results
03/09/24 03/09/24
07:21 07:22
WBC 15.3 H
Hgb 14.6
Hct 45.7
Plt Count 382
Sodium 136
Potassium 4.9
Chloride 93 L
Carbon Dioxide 37 H
BUN 21 H
Creatinine 0.6
Glucose 122 H
Calcium 9.3
Vital Signs:
Vital Signs
Temp Pulse Resp BP Pulse Ox
98.0 F 105 20 140/85 93
03/09/24 07:05 03/09/24 08:01 03/09/24 08:01 03/09/24 07:05 03/09/24 08:15
I&O
03/08/24 03/09/24 03/10/24
06:59 06:59 06:59
Intake Total 1000 / 1000 2119
Balance 1000 / 1000 2119
Review of Systems
-
Constitutional: Denies Fever
Cardiac: Denies Chest Pain
Abdomen/GI: Denies Nausea or Vomiting
Neuro: Denies Dizzy
Physical Exam
-
General: No Apparent Distress
HEENT: Moist Mucous Membranes
Respiratory: Non Labored Respirations and Decreased Breath Sounds (In general); Negative Wheezes or Accessory Resp Muscle Use
Cardiac: Regular Rhythm and S1/S2
Neuro: AO x 3
Data Reviewed
-
Labs: Labs Reviewed by me
[2024-03-09 16:27] VITALS: BP 151/75
[2024-03-09] MEDS: LOVENOX 40 MG SC (18:21)
[2024-03-09] MEDS: REFRESH CELLUVISC GEL 1 DROPS BOTH EYES (21:21)
[2024-03-09] MEDS: ARIMIDEX 1 MG PO (21:22)
[2024-03-09] MEDS: MELATONIN 5 MG PO (23:03)
[2024-03-09 23:26] VITALS: BP 142/73
[2024-03-10] MEDS: ZYRTEC 10 MG PO (06:03)
[2024-03-10] MEDS: ATROVENT NEBULES 0.5 MG INH ×2 (07:17→14:21)
[2024-03-10] MEDS: PULMICORT 0.5 MG INH (07:17)
[2024-03-10] MEDS: XOPENEX 0.63 MG INHALANT SOLUTION INH ×2 (07:17→14:21)
[2024-03-10 07:36] VITALS: BP 135/83
[2024-03-10] MEDS: NORCO 7.5/325 1 TABLET PO (08:33)
[2024-03-10] MEDS: ZITHROMAX 250 MG PO (08:33)
[2024-03-10] MEDS: DELTASONE 50 MG PO (08:33)
[2024-03-10] MEDS: MUCINEX 1200 MG PO (08:33)
[2024-03-10] MEDS: HYDROCORTISONE 1% CREAM 1 APPLIC TOPICAL (08:36)
--- NOTE | 2024-03-10 11:46 | CM ---
Reviewed the chart notes and spoke with the patient at the bedside. Discussed her home O2. She has a concentrator and an electronic portable with a conserving device. Patient is on continuous. Call placed to [facility]'s Liaison Alisa, per Alisa,
patient can switch to continuous on the portable. Alisa provided local phone number for the patient to contact with any issues ([phone]). CM continues to be available to patient/family and is monitoring medical plan for needs at discharge.
Plan: Discharge to home with no additional needs identified at this time.
--- NOTE | 2024-03-10 13:56 | W.PN.HOSP.TC ---
Today's Communication/Plan
-
DC home after home O2 assessments
Assessment / Plan
Assessment / Plan
Assessment/Plan
58 y/o female with past medical history of COPD on 2 L home O2 as needed presented with hypoxia, dyspnea on exertion and fevers. Found to have influenza (symptoms began about 4 days before presentation) and a right middle lobe hazy opacity. She had
significant oxygen requirement saturating 95% on 4 L.
#Influenza A- Influenza with marked hypoxia in patient with COPD and smoking.
c/w viral pneumonia
- No PE on CT Chest
- Tamiflu 75 bid , finished 5 days course.
- s/p ceftriaxone/azithromycin
- s/p DuoNeb RTC and prn, changed to Xopenex due to distress/ coughing experienced after Duo Neb
- prednisone was dc by pulmonary on 03/02 , now on methylprednisolone IV-taper per pulmonary - transitioned to oral prednisone today
- continue her home ICS/LABA/LAMA
- On PRN low dose IV Morphine for distress/ anxiety -wtith improved clinical symptoms dc further morphine from COPD standpoint.
- Check for home O2 needs today
- Suspect wbc elevation is from steroids .Afeb. Stable WBC.
# COPD with flare from Flu
- cw steroids per pulm
- cw nebs, zithromax prophylactic dose
- VBG shows probable compensate chronic respiratory acidosis
- Per pulm charting pt at near end COPD stage
#History of Right lower lobe pneumonia, community-acquired.
#Acute on chronic hypoxic respiratory failure
Currently she is requiring O2 ATC, she was using it at home at night /exertion/walking
#Endometriosis status post tubo-ovarian surgery
#Polycystic ovary syndrome
-Resumed Anastrazole (night of 02/27/24), as per patient request
#Chronic pain requiring opiate administration
Pt advised to continue her home regimen . She asked about oxycodone switch from IV morphine for home for breathing . Proscribed it from COPD standpoint as she is better and on lesser FIO2 plus there is always risk of addiction with additional dose
of naroctics.
she follows with a pain physician .PDMP shows she got 120mg of Hydrocodone/Ibuprofen from her pain doctor. Ideally one doctor should prescribe pain meds and advised to return to him if any adjustments needed from pain meds but from my end i dont
see the need of pain meds from pulmonary standpoint.
#Tobacco use disorder, ongoing.Advised strongly to quit to prevent progression and exacerbation of her lung condition.
DVT Prophylaxis: Lovenox subq
Code Status: Full code
Anticipated Discharge: Today
Subjective/Interval History
-
Date of Service: March 10, 2024
Continued improvement with her breathing.
On lower FIO2.
Objective Data
-
Vital Signs:
Vital Signs
Temp Pulse Resp BP Pulse Ox
98.4 F 89 18 135/83 96
03/10/24 07:36 03/10/24 07:36 03/10/24 07:36 03/10/24 07:36 03/10/24 13:32
I&O
03/09/24 03/10/24 03/11/24
06:59 06:59 06:59
Intake Total 2119 1160 / 1160
Balance 2119 1160 / 1160
Review of Systems
-
Constitutional: Denies Fever
Cardiac: Denies Chest Pain
Abdomen/GI: Denies Abdominal Pain, Nausea, Vomiting or Constipated
Neuro: Denies Dizzy
Physical Exam
-
General: Comfortable
Respiratory: Decreased Breath Sounds (in general); Negative Wheezes, Non Labored Respirations or Accessory Resp Muscle Use
Cardiac: Regular Rhythm and S1/S2; Negative Tachycardic
Neuro: AO x 3
Psych: Calm
[2024-03-10 15:42] VITALS: BP 139/83
[2024-03-10] MEDS: MORPHINE SULFATE 2 MG IV (17:57)
[2024-03-10] MEDS: MYCOSTATIN ORAL SUSPENSION 5 ML PO (17:58)
== END 2024-03-10 18:58 | disposition home or self-care (01) | DRG 871 ==
LOC: 2 NORTH 21:36
PROVIDERS: Hospitalist; Internal Medicine Critical Care Medicine; Physician Assistant; ADMITTING PHYSICIAN Internal Medicine; ATTENDING PHYSICIAN Internal Medicine; CONSULT PHYSICIAN Internal Medicine Critical Care Medicine; EMERGENCY PHYSICIAN Emergency Medicine; FAMILY PHYSICIAN Internal Medicine
DX: A41.89 Other specified sepsis (principal); J96.01 Acute respiratory failure with hypoxia; J44.1 Chronic obstructive pulmonary disease with (acute) exacerbation; F11.20 Opioid dependence, uncomplicated; J10.1 Influenza due to other identified influenza virus with other respiratory manifestations; K21.9 Gastro-esophageal reflux disease without esophagitis; E28.2 Polycystic ovarian syndrome; E78.5 Hyperlipidemia, unspecified; F17.200 Nicotine dependence, unspecified, uncomplicated; G89.4 Chronic pain syndrome; E66.9 Obesity, unspecified; Z68.33 Body mass index [BMI] 33.0-33.9, adult; Z79.51 Long term (current) use of inhaled steroids; Z20.822 Contact with and (suspected) exposure to COVID-19; Z79.52 Long term (current) use of systemic steroids; Z79.899 Other long term (current) drug therapy; Z99.81 Dependence on supplemental oxygen; Z87.01 Personal history of pneumonia (recurrent)
CPT/HCPCS: 71046; 71275; 80048; 80053; 82805; 83735; 84145; 84484; 85025; 85027; 87502; 87811; 93005; 94640; 97162; 97166; 99406; Q9967

== ENCOUNTER → 2024-03-23 13:47 | Outpatient (REF) | payer OTHER, SELFPAY | LOC: HWRCS 13:47 | PROVIDERS: ATTENDING PHYSICIAN Internal Medicine Critical Care Medicine; FAMILY PHYSICIAN Internal Medicine | DX: R06.02 Shortness of breath (principal) | CPT/HCPCS: 93306 ==

== ENCOUNTER 2024-04-07 07:01 | Outpatient (RCR) | payer OTHER, SELFPAY | END 2024-04-07 23:59 | disposition home or self-care (01) | LOC: RPT 07:01 | PROVIDERS: ATTENDING PHYSICIAN Nurse Practitioner Adult Health; FAMILY PHYSICIAN Internal Medicine | DX: C50.111 Malignant neoplasm of central portion of right female breast (principal); D75.1 Secondary polycythemia; L90.5 Scar conditions and fibrosis of skin; M62.81 Muscle weakness (generalized); Z73.6 Limitation of activities due to disability | CPT/HCPCS: 97110; 97140; 97162; 97530 ==

== ENCOUNTER 2024-05-11 15:03 | Outpatient (RCR) | payer OTHER, SELFPAY | END 2024-05-11 23:59 | disposition home or self-care (01) | LOC: RPT 15:03 | PROVIDERS: ATTENDING PHYSICIAN Nurse Practitioner Adult Health; FAMILY PHYSICIAN Internal Medicine | DX: C50.111 Malignant neoplasm of central portion of right female breast (principal); D75.1 Secondary polycythemia; L90.5 Scar conditions and fibrosis of skin; M62.81 Muscle weakness (generalized); Z73.6 Limitation of activities due to disability | CPT/HCPCS: 97110; 97140; 97530 ==

== ENCOUNTER 2024-05-14 10:45 | Outpatient (RCR) | payer OTHER, SELFPAY | END 2024-05-18 09:21 | disposition home or self-care (01) | LOC: PURB 10:45 | PROVIDERS: ATTENDING PHYSICIAN Internal Medicine Critical Care Medicine; FAMILY PHYSICIAN Physician Assistant | DX: J44.9 Chronic obstructive pulmonary disease, unspecified (principal) | CPT/HCPCS: 94625; G0237 ==

== ENCOUNTER 2024-06-09 09:56 | Outpatient (RCR) | payer OTHER, SELFPAY | END 2024-06-09 23:59 | disposition home or self-care (01) | LOC: RPT 09:56 | PROVIDERS: ATTENDING PHYSICIAN Nurse Practitioner Adult Health; FAMILY PHYSICIAN Internal Medicine | DX: C50.111 Malignant neoplasm of central portion of right female breast (principal); D75.1 Secondary polycythemia; L90.5 Scar conditions and fibrosis of skin; M62.81 Muscle weakness (generalized); Z73.6 Limitation of activities due to disability | CPT/HCPCS: 97140; 97530 ==

== ENCOUNTER 2024-06-16 10:45 | Outpatient (RCR) | payer OTHER, SELFPAY | END 2024-06-17 11:06 | disposition home or self-care (01) | LOC: PURB 10:45 | PROVIDERS: ATTENDING PHYSICIAN Internal Medicine Critical Care Medicine; FAMILY PHYSICIAN Physician Assistant | DX: J44.9 Chronic obstructive pulmonary disease, unspecified (principal) | CPT/HCPCS: 94625 ==

== ENCOUNTER 2024-07-06 09:08 | Outpatient (RCR) | payer OTHER, SELFPAY | END 2024-07-06 23:59 | disposition home or self-care (01) | LOC: RPT 09:08 | PROVIDERS: ATTENDING PHYSICIAN Nurse Practitioner Adult Health; FAMILY PHYSICIAN Internal Medicine | DX: C50.111 Malignant neoplasm of central portion of right female breast (principal); D75.1 Secondary polycythemia; L90.5 Scar conditions and fibrosis of skin; M62.81 Muscle weakness (generalized); Z73.6 Limitation of activities due to disability | CPT/HCPCS: 97140; 97530 ==

== ENCOUNTER 2024-07-16 10:45 | Outpatient (RCR) | payer OTHER, SELFPAY | END 2024-07-17 10:47 | disposition home or self-care (01) | LOC: PURB 10:45 | PROVIDERS: ATTENDING PHYSICIAN Internal Medicine Critical Care Medicine; FAMILY PHYSICIAN Physician Assistant | DX: J44.9 Chronic obstructive pulmonary disease, unspecified (principal) | CPT/HCPCS: 94625 ==

== ENCOUNTER 2024-07-30 10:45 | Outpatient (RCR) | payer OTHER, SELFPAY | END 2024-08-17 09:40 | disposition home or self-care (01) | LOC: PURB 10:45 | PROVIDERS: ATTENDING PHYSICIAN Internal Medicine Critical Care Medicine; FAMILY PHYSICIAN Physician Assistant | DX: J44.9 Chronic obstructive pulmonary disease, unspecified (principal) | CPT/HCPCS: 94625 ==

== ENCOUNTER → 2024-08-14 13:53 | Outpatient (REF) | payer OTHER, SELFPAY | LOC: HWRAD 13:53 | PROVIDERS: ATTENDING PHYSICIAN Physician Assistant | DX: M54.50 Low back pain, unspecified (principal); M25.551 Pain in right hip | CPT/HCPCS: 72100; 73502 ==

== ENCOUNTER → 2024-09-28 10:34 | Outpatient (REF) | payer OTHER, SELFPAY | LOC: MRI 10:34 | PROVIDERS: ATTENDING PHYSICIAN Specialist; FAMILY PHYSICIAN Internal Medicine | DX: M25.511 Pain in right shoulder (principal) | CPT/HCPCS: 72148; 73721 ==

== ENCOUNTER → 2024-11-11 10:24 | Outpatient (REF) | payer OTHER, SELFPAY | LOC: HWRAD 10:24 | PROVIDERS: ATTENDING PHYSICIAN Obstetrics & Gynecology; FAMILY PHYSICIAN Internal Medicine | DX: N95.0 Postmenopausal bleeding (principal) | CPT/HCPCS: 76830; 76856 ==

== ENCOUNTER 2024-11-12 10:45 | Outpatient (RCR) | payer OTHER, SELFPAY | END 2024-11-12 23:59 | disposition home or self-care (01) | LOC: PURB 10:45 | PROVIDERS: ATTENDING PHYSICIAN Internal Medicine Critical Care Medicine | DX: J44.9 Chronic obstructive pulmonary disease, unspecified (principal) | CPT/HCPCS: 94625 ==

== ENCOUNTER 2024-12-01 10:45 | Outpatient (RCR) | payer OTHER, SELFPAY | END 2024-12-02 09:37 | disposition home or self-care (01) | LOC: PURB 10:45 | PROVIDERS: ATTENDING PHYSICIAN Internal Medicine Critical Care Medicine | DX: J44.9 Chronic obstructive pulmonary disease, unspecified (principal) | CPT/HCPCS: 94625 ==

== ENCOUNTER 2025-01-19 06:09 | Day surgery (SDC) | payer OTHER, SELFPAY ==
[2025-01-15 11:03] VITALS: BMI 32.6
[2025-01-15 11:34] LABS: Hematocrit 41.7 % (37.0-47.0); Hemoglobin 13.6 g/dL (12.0-16.0); Mean Corp Hgb Conc. 32.6 g/dL (33.0-37.0); Mean Corpuscular Volume 89.5 fL (81.0-99.0); Platelet Count 283 10^3/uL (130-400); Red Cell Dist. Width 13.0 % (11.5-14.5)
[2025-01-15 12:05] LABS: Blood Urea Nitrogen 12 mg/dl (7-17); Calcium 9.7 mg/dl (8.4-10.2); Carbon Dioxide 34 mmol/L (22-30); Chloride 99 mmol/L (98-107); Estimated Creatinine Clearance > 125 ml/min; Glucose 138 mg/dl (70-99); Potassium 4.8 mmol/L (3.5-5.1); Sodium 138 mmol/L (135-145); eGFR > 60.00
--- NOTE | 2025-01-15 14:45 | PTCARENOTE ---
Abnormal EKG reviewed by Dr. Washington. No further action required.
[2025-01-19] VITALS (10 sets, daily range): BP systolic 106–146; BP diastolic 60–89
[2025-01-19] MEDS: NORMOSOL-R/PLASMALYTE-A 1000 IV (07:52)
[2025-01-19] MEDS: DILAUDID 0.5 MG IV (09:21)
[2025-01-19 09:32] LABS: Urine Character Clear (Clear)
[2025-01-19] MEDS: DILAUDID 0.25 MG IV (09:39)
[2025-01-19] MEDS: MOTRIN 600 MG PO (11:08)
[2025-01-19] MEDS: ROXICODONE 5 MG PO (11:09)
== END 2025-01-19 12:40 | disposition home or self-care (01) ==
LOC: SDS 06:09
PROVIDERS: ATTENDING PHYSICIAN Obstetrics & Gynecology; FAMILY PHYSICIAN Internal Medicine; OTHER PHYSICIAN Obstetrics & Gynecology
DX: N95.0 Postmenopausal bleeding (principal); R93.89 Abnormal findings on diagnostic imaging of other specified body structures; N36.1 Urethral diverticulum
CPT/HCPCS: 58558; 52000; 36415; 80048; 81003; 85027; 87086; 88305; 88341; 88342; 88360; 93005

== ENCOUNTER → 2025-02-05 08:20 | Outpatient (REF) | payer OTHER, SELFPAY | LOC: MRI 08:20 | PROVIDERS: ATTENDING PHYSICIAN Obstetrics & Gynecology; FAMILY PHYSICIAN Physician Assistant | DX: N36.1 Urethral diverticulum (principal) | CPT/HCPCS: 72197; A9575 ==